=== PATIENT | male | born 1970 | race Caucasian/White ===

== ENCOUNTER 2019-02-23 05:50 | Emergency (ER) | payer BC, SELFPAY ==
[2019-02-23 05:51] VITALS: BP 177/112; PULSE 90; RESP 18; TEMP 36.4; O2SAT 97; BMI 30.4
[2019-02-23 06:36] LABS: Absolute Lymphocyte Count 1.33 X10^3/uL (0.83-4.51); Absolute Neutrophil Count 3.5 X10^3/uL (2.0-7.7); Basophil# 0.04 X10^3/uL; Basophil% 0.7 % (0-1); Eosinophil# 0.08 X10^3/uL; Eosinophils% 1.4 % (0-5); Hematocrit 46.3 % (40-54); Hemoglobin 15.1 g/dL (13.0-16.5); Lymphocyte # 1.33 X10^3/ul (4.0); Lymphocyte % 23.7 % (19-41); Mean Corp Hgb Conc 32.6 g/dL (32-36); Mean Corpuscular Hgb 29.5 pg (27.0-32.0); Mean Corpuscular Volume 90.6 fL (80-94); Mean Platelet Vol. 9.3 fl (6.2-12.0); Monocyte# 0.68 X10^3/uL; Monocyte% 12.1 % (0-10); NRBC Flagged by Analyzer 0 % (0-5); Neutrophil # 3.46 X10^3/uL (2.7-7.7); Neutrophil % 61.7 % (47-70); Platelet Count 314 K/mm3 (150-450); RBC Distribution Width CV 13.1 % (11.6-14.6); RBC Distribution Width SD 42.7 fl (35.1-43.9); Red Blood Count 5.11 M/mm3 (4.6-6.2); White Blood Count 5.6 K/mm3 (4.4-11.0)
[2019-02-23 06:45] LABS: ALB/GLOB Ratio 1.1 RATIO (0.9-2.4); AST(SGOT) 13 U/L (15-37); Alanine Aminotransfer ALT/SGPT 24 U/L (16-61); Albumin, Serum 3.8 g/dL (3.2-5.0); Alkaline Phosphatase 43 U/L (45-117); Anion Gap 6 (5-15); BUN 23 mg/dL (7-18); BUN/Creat Ratio 28.7 RATIO (10-20); Calcium,Total 8.6 mg/dL (8.5-10.1); Chloride 112 mmol/L (98-107); EST Glomerular Filtration Rate 109 mL/min (>60); Est Glom Filt Rate - Afr Amer 132 mL/min (>60); Globulin 3.5 g/dL (2.2-4.2); Glucose 91 mg/dL (74-106); Potassium 4.1 mmol/L (3.5-5.1); Protein, Total 7.3 g/dL (6.4-8.2); Sodium Level 143 mmol/L (136-145)
--- NOTE | 2019-02-23 06:54 | EKG12_ITS ---
Test Reason : HYPTERTENSON Blood Pressure : / mmHG Vent. Rate : 078 BPM Atrial Rate : 078 BPM P-R Int : 176 ms QRS Dur : 078 ms QT Int : 384 ms P-R-T Axes : 051 035 036 degrees QTc Int : 437 ms Normal sinus rhythm Normal ECG Confirmed by EUGENIA BENNETT, NATHANAEL ([id number]), material expeditor MADELINE BOX ([id number]) on 02/25/2019 11:06:21 AM Referred By: DEXTER Confirmed By:NATHANAEL BELLO MD
--- NOTE | 2019-02-23 06:54 | ED.VIS.GEN ---
History of Present Illness Chief Complaint: Hypertension Narrative: Patient is a 48-year-old male who presents with elevated blood pressure. He recently used a testosterone injection that you got from a friend, this was not prescribed to him. He used this 4 days ago. He has had hot flashes since that time. He saw his dentist the next day, 2 days ago. His blood pressure was noted to be elevated. He denies chest pain, shortness of breath, lightheadedness, headache. He states that if he had not gone to the dentist he would not have even known that his blood pressure was high. He does report a family history of coronary disease although he was evaluated with an echocardiogram and EKG earlier this year. Past Medical History Past Medical History: None Smoking Status: Never smoker Review of Systems All systems negative except as indicated General: Denies: Fever Cardiovascular: Denies: Chest pain Respiratory: Denies: Dyspnea Gastrointestinal: Denies: Nausea, Vomiting Skin: Denies: Rash Neurological: Denies: Headache Physical Exam Vital Signs/Narrative: Vital Signs Temp Pulse Resp BP Pulse Ox 02/23/19 05:51 97.6 F L 90 18 177/112 H 97 Inital Vital Signs reviewed: Yes General: Well nourished, Well developed Head: Normocephalic, Atraumatic Eyes: EOMI ENT: Moist mucous membranes Neck: Supple Cardiovascular: Regular rate, Regular rhythm Respiratory: No distress, CTA bilaterally Abdomen: Soft, Nontender Skin: Normal color Neurological: Alert, - - No focal or lateralizing neurological deficits Psychological: Normal affect Diagnostic/Tx/Re-eval Laboratory Results 02/23/19 02/23/19 06:20 06:20 WBC 5.6 RBC 5.11 Hgb 15.1 Hct 46.3 MCV 90.6 MCH 29.5 MCHC 32.6 RDW Std Deviation 42.7 RDW Coeff of Jhonatan 13.1 Plt Count 314 MPV 9.3 Immature Gran % (Auto) 0.400 Neut % (Auto) 61.7 Lymph % (Auto) 23.7 [place] % (Auto) 12.1 H Eos % (Auto) 1.4 Baso % (Auto) 0.7 Absolute Neuts (auto) 3.5 Absolute Lymphs (auto) 1.33 Nucleated RBC % 0 Sodium 143 Potassium 4.1 Chloride 112 H Carbon Dioxide 25.0 Anion Gap 6 BUN 23 H Creatinine 0.80 Estim Creat Clear Calc 122.60 Est GFR (MDRD) Af Amer 132 Est GFR (MDRD) Non-Af 109 BUN/Creatinine Ratio 28.7 H Glucose 91 Calcium 8.6 Total Bilirubin 0.60 AST 13 L ALT 24 Alkaline Phosphatase 43 L Total Protein 7.3 Albumin 3.8 Globulin 3.5 Albumin/Globulin Ratio 1.1 - Medical Decision Making CBC and CMP were ordered off of nursing protocol and are normal. EKG shows normal sinus rhythm at a rate of 78 with no acute ischemic changes. Patient presents with asymptomatic hypertension which is likely related to the testosterone. I do not believe any further emergent work-up or initiation of medications is indicated at this time. I did advise that he follow-up with his primary care physician for a blood pressure recheck. He does understand to return however if he develops symptoms. He was instructed on signs and symptoms to monitor for. He was discharged. ED Disposition - Plan for ED Patient: Disposition: Home or Assisted Living Diagnosis: Asymptomatic hypertension Instructions: HYPERTENSION, To Be Confirmed Referrals: Keely Mina MD [STAFF PHYSICIAN] -
[2019-02-23 07:15] VITALS: BP 160/111; PULSE 80; RESP 18; O2SAT 96
== END 2019-02-23 07:16 | disposition home or self-care (01) ==
LOC: ED 07:10
PROVIDERS: Emergency Provider Emergency Medicine; Family Provider Internal Medicine; PCP Internal Medicine
DX: I10 Essential (primary) hypertension (principal); Z82.49 Family history of ischemic heart disease and other diseases of the circulatory system
CPT/HCPCS: 80053; 85025; 93005; 99283; A4216

== ENCOUNTER → 2020-01-09 09:30 | Outpatient (CLI) | payer BC, SELFPAY | PROVIDERS: PCP Internal Medicine; Visit Provider Nurse Practitioner Family | DX: Z20.828 Contact with and (suspected) exposure to other viral communicable diseases (principal); B34.9 Viral infection, unspecified | CPT/HCPCS: 87635; C9803; U0003 ==

== ENCOUNTER 2024-11-16 19:36 | Emergency (ER) | payer BC, SELFPAY ==
[2024-11-16 19:37] VITALS: BP 143/99; PULSE 72; RESP 18; TEMP 36.8; O2SAT 99; BMI 26.4
--- NOTE | 2024-11-16 21:32 | EX.ED.UPPERE ---
HPI History of Present Illness Chief Complaint: Laceration Informant: patient Narrative Narrative: [id number] male presents injury right hand at home prior to arrival. He was opening up the window spring broke coming down crushing his finger. Injury to the 3rd and 4th digit. There is laceration volar aspect 3rd and 4th digit. Tetanus is unknown. No anticoagulants. Is able to move his fingers. No other injuries. Tetanus Immunization: Unknown [facility] Medical History HTN (hypertension) Home Medications ?Medication ?Instructions ?Recorded ?Last Taken ?Type losartan 25 mg tablet 25 mg PO DAILY 11/16/24 Unknown History oxycodone 5 mg tablet PO 11/16/24 Unknown History Held on 11/16/24. Instructions: Order Completed Allergy/AdvReac Type Severity Reaction Status Date / Time No Known Allergies Allergy Verified 11/16/24 19:36 Social History Smoking Status: Never smoker ROS ROS ED Constitutional Constitutional ED: Denies fever(s) Cardiovascular Cardiovascular: Denies chest pain Respiratory/Chest Respiratory/Chest: Denies cough Gastrointestinal Gastrointestinal: Denies diarrhea or vomiting Musculoskeletal Musculoskeletal: Reports other Details: Right hand injury Integumentary Reports wounds; Denies rash Neurologic Neurologic: Denies weakness EXAM Physical Exam Const Vital Signs: 11/16/24 19:37 Temperature 98.2 F Temperature Source Oral Pulse Rate 72 Respiratory Rate 18 Blood Pressure 143/99 H Blood Pressure Mean 113 Pulse Ox 99 Oxygen Delivery Method Room Air Positive well nourished and well developed Constitutional Narrative: GCS 15. General Appearance ED: well developed and NAD HEENT Reports moist mucous membranes normocephalic and atraumatic Eyes General Eye ED: Yes normal appearance of both eyes Neck full ROM Chest Wall Chest: Negative for tenderness Resp normal respiratory effort and normal air movement Effort and Inspection: symmetric chest movement; Negative for respiratory distress Cardio regular rate, regular rhythm and no murmurs Peripheral Pulses: pulses 2+ throughout GI normal to inspection, nondistended, normoactive bowel sounds and non-tender Palpation: Negative for guarding or rebound tenderness present Extremity Extremity Narrative: Right upper extremity: No wrist tenderness no metacarpal tenderness. Ring finger noted 1 cm laceration volar aspect of the DIP with no active bleeding. Able to flex the digit. There is a 20% subungual hematoma at the base of the nail. No deformities. Superficial dorsal skin avulsion. Middle finger: Flap laceration of 2 cm volar aspect middle phalanx 1 ulnar aspect. Full range of motion of PIP and DIP joint. Superficial skin avulsion dorsal aspect distal phalanx. No subungual hematoma. Dried blood with no active bleeding. General Extremety ED: Yes tenderness; Negative for edema General Extremity: Negative for edema Neuro oriented x3 and no sensory deficits noted Sensorium / Orientation: awake and alert Skin no rashes or lesions noted and no wounds MDM MDM MDM Narrative Medical decision making narrative: Interventions / MDM: Differential diagnosis: Crush injury right hand, lacerations, subungual hematoma Diagnosis considered but do not suspect: Fracture however x-ray negative. My EKG interpretation: N/A Imaging independently reviewed and interpreted by myself: Three-view x-ray right hand: No fractures noted. Also read by radiology. External documents reviewed: N/A Test considered but not ordered:N/A ED course: Crush injury right hand primary injury of 3rd and 4th digits. X-ray ordered. Tetanus updated. Will have nursing soak hand. Will plan for suture repairs of the 3rd and 4th digit. Tendons are intact. Procedure note: Verbal consent. Normal sterile conditions. Total of 2 cc 1% lidocaine used for local analgesia directly to the wounds 3 and 4. Wounds were copious flushed with normal saline syringe. No visualized gross foreign bodies. Initial ring finger repaired using a total of 2, 5-0 nylon interrupted sutures. Middle finger repaired with total of 3, 5-0 nylon simple interrupted sutures with good approximation of the wound. With his subungual hematoma ring finger, discussed trephination which she agreed, performed with high-powered trephinated with immediate bloody drainage. Wound was cleansed again with normal saline. Vaseline dressing placed around each digit by myself. 4 x 4's along with Kerlix dressing. Patient tolerated procedure well. Wound care discussed with the patient. AlumaFoam splints provided for 2 digits. Outpatient follow-up with Wound check and suture removal. Re-evaluation: stable Disposition discussed with patient/family/significant other:. Patient Case discussed with consulting clinician: N/A This note was generated with [employer] software. It may contain incorrect words, spelling, and punctuation that were not noted in checking the note before signing. Discharge Plan Triage Chief Complaint: Laceration ED Provider: Christopher Blackburn Dx/Rx/DC Orders Clinical Impression: Laceration of finger of right hand, Crush injury, Subungual hematoma of fingernail, Tetanus toxoid vaccination administered at current visit Instructions: ED Laceration, All Closures, ED Subungual Hematoma Prescriptions: No Action losartan 25 mg tablet 25 mg PO DAILY oxycodone 5 mg tablet PO Primary Care Provider: Keely Mina Referrals: Keely Mina MD [Primary Care Provider] - 10-14 Days suture removal Activity Restrictions/Additional Instructions: Right hand x-ray negative for any fractures. 3 sutures to the middle finger 2 sutures to your ring finger. You are subungual hematoma was trephinated in the ED. Wound care as discussed. Follow your doctor in 10 to 14 days for recheck evaluation possible suture removal. Print Language: Nauruan Disposition Disposition: Home, Self Care Discharge Date/Time: 11/16/24 23:20
--- OUTSIDE RECORDS SUMMARY | 2024-11-16 21:45 | XMS RPT_ITS | CCD ---
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 Role Phone Rene Mina Unavailable SERA MONTALVO Unavailable Unavailable SERA MONTALVO Unavailable Unavailable Rene Mina MD Primary Care Provider Free, Text Entry Unavailable Unavailable Diamond Kilpatrick Unavailable Unavailable Rene Mina MD Primary Care Provider Rene Mina MD Primary Care Provider Rene Mina MD Primary Care Provider Generic Provider MD, No Assigned Pcp Primary Car e Provider Unavailable Rene Mina MD Primary Care Provider MYESHA GARIBAY Referring Unavailable GENERIC PROVIDER, NO ASSIGNED PCP Primary Care Unavailable Older STAFFING MGR.DRAG DOWN, Suzanne Primary Care Provider VANI ZAMBRANO Admitting Unavailable VANI ZAMBRANO Attending Unavailable GANTA, RENE Primary Care Unavailable OLDER, SUZANNE Referring Unavailable GANTA, RENE Primary Care Unavailable VANI ZAMBRANO Attending Unavailable OLDER, SUZANNE Referring Unavailable GANTA, RENE Primary Care Unavailable OLDER, SUZANNE Referring Unavailable GANTA, RENE Primary Care Unavailable GANTA, RENE Primary Care Unavailable OLDER, SUZANNE Attending Unavailable GANTA, RENE Primary Care Unavailable OLDER, SUZANNE Referring Unavailable GANTA, RENE Primary Care Unavailable OLDER, SUZANNE Attending Unavailable OLDER, SUZANNE Referring Unavailable OLDER, SUZANNE Primary Care Unavailable OLDER, SUZANNE Attending Unavailable OLDER, SUZANNE Primary Care Unavailable KARIME HART Attending Unavailable OLDER, SUZANNE Primary Care Unavailable GANTA, RENE Primary Care Unavailable Allergies Allergy Classification Reported Allergen(s) Allergy Type Date of Onset Reaction(s) Facility (2 sources) Diatrizoate Drug Allergy 8 Rash [facility] Work Phone: (20 sources) Iodine; Translations: [IODINE] Drug Allergy 6 Rash [facility] (1 source) ALLERGIES NOT ON FILE; Translations: [ALLERGIES NOT ON FILE] Propensity to adverse reactions (disorder) [facility] 2 Repository Medications Current Medications Medication Drug Class(es) Dates Sig (Normalized) Sig (Original) amoxicillin 875 mg oral tablet (1 source) Penicillin-class Antibacterial Start: 06-03-2021 End: 06-12-2021 take 1 tablet by mouth twice daily amoxicillin 875 mg oral tablet ; 1 tab(s) orally 2 times a day x 10 days Quantity: 20 Refills: 0 Ordered: 03-Jun-2021 Diamond Kilpatrick Start: 03-Jun-2021 End: 12-Jun-2021 Status: Discontinued Generic Substitution Allowed Comments: Finish all this medication unless otherwise directed by prescriber. Comment on above: Finish all this medi cation unless otherwise directed by prescriber. amoxicillin 875 mg / clavulanate 125 mg oral tablet (1 source) Penicillin-class Antibacterial Start: 06-03-2021 End: 06-12-2021 take 1 tablet by mouth twice daily at mealtime amoxicillin-clavul anate 875 mg-125 mg oral tablet ; 1 tab(s) orally 2 times a day x 10 days. Take with food. Quantity: 20 Refills: 0 Ordered: 03-Jun-2021 Diamond Kilpatrick Start: 03-Jun-2021 End: 12-Jun-2021 Generic Substitution Allowed Comments: Finish all this medication unless otherwise directed by prescriber.Take with food or milk. Comment on above: Finish all this medi cation unless otherwise directed by prescriber.Take with food or milk. cephalexin 500 mg oral capsule (1 source) Cephalosporin Antibacterial Start: 11-03-2022 End: 11-08-2022 take 1 capsule by mouth three times daily cephALEXin (KEFLEX) 500 mg capsule Indications: Infected abrasion of left ankle, initial encounter Take 1 capsule by mouth three times daily for 5 days. 15 capsule 0 11/03/2022 11/08/2022 Active Comment on above: Take 1 capsule by [facility] three times daily for 5 days. Cetirizine (20 sources) Histamine-1 Receptor Antagonist CETIRIZINE HCL (ZYRTEC ORAL) Take by mouth. Active CETIRIZINE HCL ( ZYRTEC ORAL) Take by mouth. 0 Active take 1 tablet by mouth once ame y ZyrTEC 10 mg oral tablet, chewable ; 1 tab(s) orally once a day Quantity: 0 Refills: 0 Ordered: 14-Oct-2019 Haylee Johnson Generic Substitution Allowed Comment on above: Take by mouth. cyclobenzaprine hydrochloride 10 mg oral tablet (3 sources) Muscle Relaxant Start: End: take 1 tablet by mouth at bedtime cyclobenzaprine 10 MG Tab tablet Indications: Acute bilateral low back pain without sciatica Take 1 tablet by mouth at bedtime. 5 tablet 0 03/06/2018 Active diclofenac sodium 75 mg delayed release oral tablet (3 sources) Nonsteroidal Anti-inflammatory Drug Start: End: take 1 tablet by mouth twice daily diclofenac EC [address] tablet Indications: Acute bilateral low back pain without sciatica Take 1 tablet by mouth 2 times daily. 10 tablet 0 03/06/2018 Active enteric contrast (will be provided with radiology test) (1 source) Start: End: enteric contrast (will be provided with radiology test) Indications: Right groin mass , Localized swelling, mass and lump, trunk , Hydrocele, unspecified hydrocele type For CT PELVIS WO IVCON order Administer, As Directed One Time Only, via Oral, Rectal, both Oral and Rectal, Enteric Tube, Stoma or Indwelling Catheter, Enteric Contrast as designated per enteric contrast guidelines 1 Each 12/23/2023 12/24/2023 Active losartan potassium 25 mg oral tablet (20 sources) Angiotensin 2 Receptor Bryn Start: End: take 1 tablet by mouth once daily losartan (COZAAR) 25 mg tablet Take 1 tablet by mouth once daily. 90 tablet 3 09/21/2024 Active Start: 08-20-2022 End: 10-26-2023 take 1 tablet by mouth once daily losartan (COZAAR) 50 mg tablet Take 1 tablet by mouth once daily. 90 tablet 3 10/31/2022 10/26/2023 Discontinued Start: 12-30-2021 take 1 tablet by fatoumata th once daily losartan (COZAAR) 50 mg tablet Take 1 tablet by mouth once daily. 90 tablet 3 12/30/2021 Active Start: 08-20-2021 End: 12-27-2021 take 1 tablet by mouth once daily losartan (COZAAR) 50 mg tablet Take 1 tablet by mouth once daily. 90 tablet 3 09/27/2021 12/27/2021 Discontinued Start: 06-21-2021 take 1 tablet by fatoumata th once daily losartan (COZAAR) 50 mg tablet Take 1 tablet by mouth once daily. 90 tablet 0 06/21/2021 Active Start: 03-20-2021 End: 06-20-2021 take 1 tablet by mouth once daily losartan (COZAAR) 50 mg tablet Take 1 tablet by mouth once daily. 90 tablet 0 03/20/2021 06/20/2021 Discontinued Start: 12-20-2020 losartan 50 MG tablet losartan 50 mg o ral tablet Quantity: 0 Refills: 0 Ordered: 03-Jun-2021 Willem Kennedy Generic Substitution Allowed Comment on above: Take 1 tablet by fatoumata th once daily. perflutren lipid microspheres 1.3 mL in NaCl (PF) 0.9% 10 mL injection (DEFINITY) (12 sources) Start: 06-30-2022 End: 09-29-2023 perflutren lipid microspheres 1.3 mL in NaCl (PF) 0.9% 10 mL injection (DEFINITY) 125 ml sodium chloride 9 mg/ml prefilled syringe (12 sources) Start: 06-30-2022 End: 09-29-2023 sodium chloride 0.9 % (flush) 10 mL (BD POSIFLUSH) Completed/Discontinued Medications Medication Drug Class(es) Dates Sig (Normalized) Sig (Original) azithromycin 250 mg oral tablet (1 source) Macrolide Antimicrobial Start: 10-14-2019 End: 10-18-2019 Azithromycin 5 Day Dose Pack 250 mg oral tablet ; take as directed on package Quantity: 6 Refills: 0 Ordered: 14-Oct-2019 Radha Fleming Start: 14-Oct-2019 End: 18-Oct-2019 Status: Other Generic Substitution Allowed Comments: Do not take dairy products, antacids, or iron preparations within one hour of this medication.Finish all this medication unless otherwise directed by prescriber. Comment on above: Do not take dairy pr oducts, antacids, or iron preparations within one hour of this medication.Finish all this medication unless otherwise directed by prescriber. ergocalciferol 1.25 mg oral capsule (10 sources) Provitamin D2 Compound Start: 04-27-2019 take 1 capsule by mouth two times weekly ergocalciferol 50,000 unit capsule (VITAMIN D2, DRISDOL) Take 1 capsule by mouth two times a week. 24 capsule 3 04/27/2019 Active Comment on above: Take 1 capsule by mo uth two times a week. fluticasone propionate 0.05 mg/actuat metered dose nasal spray (20 sources) Corticosteroid Start: 08-20-2022 End: 09-21-2024 take 2 spray(s) by mouth once daily fluticasone (FLONASE) 50 mcg/actuation nasal spray Indications: Sinus pressure , Sinus headache Use 2 Sprays in each nostril once daily. Rinse mouth after use. 1 Each 5 08/20/2022 09/21/2024 Discontinued Start: 12-30-2021 take 2 spray(s) by m outh once daily fluticasone (FLONASE) 50 mcg/actuation nasal spray Indications: Sinus pressure , Sinus headache Use 2 Sprays in each nostril once daily. Rinse mouth after use. 1 Each 5 12/30/2021 Active Start: 08-20-2021 End: 12-27-2021 take 2 spray(s) by mouth once daily fluticasone (FLONASE) 50 mcg/actuation nasal spray Indications: Sinus pressure , Sinus headache Use 2 Sprays in each nostril once daily. Rinse mouth after use. 1 Each 5 08/20/2021 12/27/2021 Discontinued Start: 03-27-2020 take 2 spray(s) by m outh once daily fluticasone (FLONASE) 50 mcg/actuation nasal spray Indications: Sinus pressure , Sinus headache Use 2 Sprays in each nostril once daily. Rinse mouth after use. 1 Bottle 0 03/27/2020 Active Comment on above: Use 2 Sprays in each nostril once daily. Rinse mouth after use. meloxicam 15 mg oral tablet (12 sources) Nonsteroidal Anti-inflammatory Drug Start: 05-07-19 End: 07-01-19 23 take 1 tablet by mouth once daily at mealtime meloxicam (MOBIC) 15 mg tablet Take 1 tablet by mouth once daily. With food. 30 tablet 1 10/01/2021 06/30/2022 Discontinued (Discontinued by Patient) Comment on above: Take 1 tablet by fatoumata th once daily. With food. montelukast 10 mg oral tablet (20 sources) Leukotriene Receptor Antagonist Start: 08-21-19 End: 10-26-19 take 1 tablet by mouth once daily at bedtime montelukast (SINGULAIR) 10 mg tablet Take 1 tablet by mouth daily at bedtime. 30 tablet 5 08/20/2022 10/26/2023 Discontinued Start: 08-20-2021 End: 06-30-2022 take 1 tablet by mouth once daily at bedtime montelukast (SINGULAIR) 10 mg tablet Take 1 tablet by mouth daily at bedtime. 30 tablet 5 08/20/2021 06/30/2022 Discontinued (Discontinued by Patient) Comment on above: Take 1 tablet by fatoumata th daily at bedtime. tirzepatide, weight loss (ZEPBOUND) 2.5 mg/0.5 mL pen injector (20 sources) Start: 07-20-2023 End: 09-21-2024 tirzepatide, weight loss (ZEPBOUND) 2.5 mg/0.5 mL pen injector Indications: Class 1 obesity with serious comorbidity and body mass index (BMI) of 30.0 to 30.9 in adult, unspecified obesity type , Weight loss counseling, encounter for , Essential hypertension , Mixed hyperlipidemia Inject 2.5 mg subcutaneously one time a week. 6 mL 1 07/20/2023 09/21/2024 Discontinued Start: 07-20-2023 tirzepatide, w eight loss (ZEPBOUND) 2.5 mg/0.5 mL pen injector Indications: Class 1 obesity with serious comorbidity and body mass index (BMI) of 30.0 to 30.9 in adult, unspecified obesity type , Weight loss counseling, encounter for , Essential hypertension , Mixed hyperlipidemia Inject 2.5 mg subcutaneously one time a week. 6 mL 1 07/20/2023 Active Start: 06-17-2023 End: 07-20-2023 tirzepatide, weight loss (ZE PBOUND) 2.5 mg/0.5 mL pen injector Indications: Class 1 obesity with serious comorbidity and body mass index (BMI) of 30.0 to 30.9 in adult, unspecified obesity type , Weight loss counseling, encounter for Inject 2.5 mg subcutaneously one time a week. 2 mL 1 06/17/2023 07/20/2023 Discontinued Start: 06-17-2023 tirzepatide, w eight loss (ZEPBOUND) 2.5 mg/0.5 mL pen injector Indications: Class 1 obesity with serious comorbidity and body mass index (BMI) of 30.0 to 30.9 in adult, unspecified obesity type , Weight loss counseling, encounter for Inject 2.5 mg subcutaneously one time a week. 2 mL 1 06/17/2023 Active Start: 06-17-2023 End: 06-17-2023 tirzepatide, weight loss (ZE PBOUND) 2.5 mg/0.5 mL pen injector Indications: Class 1 obesity with serious comorbidity and body mass index (BMI) of 30.0 to 30.9 in adult, unspecified obesity type , Weight loss counseling, encounter for Inject 2.5 mg subcutaneously one time a week. 2 mL 1 06/17/2023 06/17/2023 Discontinued Start: 04-20-2023 End: 06-16-2023 tirzepatide, weight loss (ZE PBOUND) 2.5 mg/0.5 mL pen injector Indications: Class 1 obesity with serious comorbidity and body mass index (BMI) of 30.0 to 30.9 in adult, unspecified obesity type , Weight loss counseling, encounter for Inject 2.5 mg subcutaneously one time a week. 2 mL 1 04/20/2023 06/16/2023 Discontinued Start: 04-20-2023 tirzepatide, w eight loss (ZEPBOUND) 2.5 mg/0.5 mL pen injector Indications: Class 1 obesity with serious comorbidity and body mass index (BMI) of 30.0 to 30.9 in adult, unspecified obesity type , Weight loss counseling, encounter for Inject 2.5 mg subcutaneously one time a week. 2 mL 1 04/20/2023 Active Comment on above: Inject 2.5 mg subcut aneously one time a week. Problems Active Problems Problem Classification Problem Date Documented Da te Episodic/Chronic Abdominal hernia (3 sources) Right inguinal hernia ; Translations: [Unilateral inguinal hernia, without obstruction or gangrene, not specified as recurrent] 12-30-2023 Episodic Abdominal pain (1 source) Flank pain Episodic Administrative/social admission (20 sources) Patient encounter status; Translations: [Dietary counseling and surveillance] Onset: 1 Resolved: 1 06-17-2023 Episodic Cardiac dysrhythmias (20 sources) Supraventricular tachycardia; Translations: [Supraventricular tachycardia] Onset: 3 08-20-2022 Chronic Cardiac dysrhythmias (1 source) Palpitations; Translations: [Palpitations] Episodic Disorders of lipid metabolism (20 sources) Mixed hyperlipidemia; Translations: [Mixed hyperlipidemia] Onset: 3 Chronic Essential hypertension (20 sources) Essential hypertension; Translations: [Essential (primary) hypertension] Onset: 3 Chronic Genitourinary symptoms and ill-defined conditions (1 source) Increased frequency of urination; Translations: [Frequency of micturition] Episodic Headache; including migraine (2 sources) Sinus headache; Translations: [Sinus headache] Episodic Immunizations and screening for infectious disease (1 source) Needs influenza immunization; Translations: [Encounter for immunization] Episodic Malaise and fatigue (1 source) Fatigue; Translations: [Other fatigue] Episodic Nutritional deficiencies (1 source) Vitamin D deficiency; Translations: [Vitamin D deficiency, unspecified] Chronic Nutritional deficiencies (1 source) Cobalamin deficiency; Translations: [Deficiency of other specified B group vitamins] Episodic Other circulatory disease (1 source) Elevated blood-pressure reading without diagnosis of hypertension Episodic Other connective tissue disease (1 source) Lateral epicondylitis of right humerus; Translations: [Lateral epicondylitis, right elbow] Episodic Other connective tissue disease (1 source) Postexertional fatigue; Translations: [Other specified disorders of muscle] Episodic Other diseases of veins and lymphatics (2 sources) Varicocele; Translations: [Scrotal varices] 12-15-2023 Episodic Other diseases of veins and lymphatics (1 source) Scrotal varices; 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] Onset: 5 Episodic Other gastrointestinal disorders (5 sources) Groin mass; Translations: [Other intra-abdominal and pelvic swelling, mass and lump] 12-07-2023 Episodic Other male genital disorders (2 sources) Pain of right testicle; Translations: [Right testicular pain] 12-07-2023 Episodic Other male genital disorders (4 sources) Disorder of male genital organ; Translations: [Hydrocele, unspecified] 12-15-2023 Episodic Other nervous system disorders (1 source) Other acute postprocedural pain; Translations: [Acute post-operative pain] Onset: Episodic Other non-traumatic joint disorders (3 sources) Pain in elbow; Translations: [Pain in right elbow] Episodic Other nutritional; endocrine; and metabolic disorders (4 sources) Obesity; Translations: [Obesity, unspecified] 06-17-2023 Chronic Other skin disorders (2 sources) Finding of trunk structure; Translations: [Localized swelling, mass and lump, trunk] 12-23-2023 Episodic Other upper respiratory disease (2 sources) Nasal sinus problem; Translations: [Other specified disorders of nose and nasal sinuses] Episodic Other upper respiratory infections (3 sources) Viral upper respiratory tract infection; Translations: [Acute upper respiratory infection, unspecified] Episodic Residual codes; unclassified (1 source) Pain; Translations: [Pain, unspecified] 01-25-2023 Episodic Screening and history of mental health and substance abuse codes (2 sources) Encounter for screening for depression; Translations: [Encounter for screening examination for other mental health and behavioral disorders] Onset: Episodic Spondylosis; intervertebral disc disorders; other back problems (1 source) Acute low back pain Episodic Superficial injury; contusion (1 source) Abrasion, left ankle, initial encounter; Translations: [Abrasion or friction burn of hip, thigh, leg, and ankle, infected] 11-03-2022 Episodic Unclassified (2 sources) COUGH SINUS CHEST CONGESTION 06-03-2021 Comment on above: COUGH SINUS CHEST CO NGESTION Past or Other Problems Problem Classification Problem Date Documented Da te Episodic/Chronic Allergic reactions (20 sources) Allergic condition; Translations: [Allergy, unspecified, initial encounter] Onset: 08-20-2022 08-20-2022 Episodic Other gastrointestinal disorders (1 source) Other intra-abdominal and pelvic swelling, mass and lump; Translations: [Right groin mass] Onset: 12-30-2023 Episodic Other male genital disorders (1 source) Hydrocele, unspecified; Translations: [Hydrocele, unspecified hydrocele type] Onset: 12-29-2023 Episodic Other male genital disorders (1 source) Right testicular pain; Translations: [Right testicular pain] Onset: 12-10-2023 Episodic Other skin disorders (1 source) Localized swelling, mass and lump, trunk; Translations: [Localized swelling, mass and lump, trunk] Onset: 12-29-2023 Episodic Residual codes; unclassified (2 sources) Pain, unspecified; Translations: [Pain, unspecified] Onset: 01-25-2023 Episodic Results Test Name Value Interpretation Reference Range Facility CBC panel Auto (Bld)on 11-12 Erythrocyte distribution width (RBC) [Ratio] 13.4 % Normal 11.5-15.0 [facility] Comment on above: Order Comment: Speci men Type: BLOOD SPECIMENOrdering Facility: [facility] Address: [address] [place] [address] Performed By: #### 5 8410-2 ####[facility] [id number] [place] [address] [place] Hematocrit (Bld) [Volume fraction] 45.1 % Normal 39.0-51.0 [facility] Comment on above: Order Comment: Speci men Type: BLOOD SPECIMENOrdering Facility: [facility] Address: [address] [place] [address] Performed By: #### 5 8410-2 ####[facility] [id number] [place] [address] [place] Hemoglobin (Bld) [Mass/Vol] 15.0 g/dL Normal 13.0-17.0 [facility] Comment on above: Order Comment: Speci men Type: BLOOD SPECIMENOrdering Facility: [facility] Address: [address] [place] [address] Performed By: #### 5 8410-2 ####[facility] [id number] [place] [address] [place] MCH (RBC) [Entitic mass] 30.2 pg Normal 26.0-34.0 [facility] Comment on above: Order Comment: Speci men Type: BLOOD SPECIMENOrdering Facility: [facility] Address: [address] [place] [address] Performed By: #### 5 8410-2 ####[facility] LABIA [id number] [place] [address] [place] MCHC (RBC) [Mass/Vol] 33.3 g/dL Normal 30.5-36.0 [facility] Comment on above: Order Comment: Speci men Type: BLOOD SPECIMENOrdering Facility: [facility] Address: [address] [place] [address] Performed By: #### 5 8410-2 ####[facility] [id number] [place] [address] [place] MCV (RBC) [Entitic vol] 90.9 fL Normal 80.0-100.0 [facility] Comment on above: Order Comment: Speci men Type: BLOOD SPECIMENOrdering Facility: [facility] Address: [address] [place] [address] Performed By: #### 5 8410-2 ####[facility] [id number] [place] [address] [place] Nucleated RBC (Bld) [#/Vol] 10*3/uL Normal <0.01 [facility] Comment on above: Order Comment: Speci men Type: BLOOD SPECIMENOrdering Facility: [facility] Address: [address] [place] [address] Performed By: #### 5 8410-2 ####[facility] [id number] [place] [address] [place] Platelet mean volume (Bld) [Entitic vol] 9.9 fL Normal 9.0-12.7 [facility] Comment on above: Order Comment: Speci men Type: BLOOD SPECIMENOrdering Facility: [facility] Address: [address] [place] [address] [place] [address] Performed By: #### 5 8410-2 ####[facility] [id number] [address] [address] [place] Platelets (Bld) [#/Vol] 309 10*3/uL Normal 150-400 [facility] Comment on above: Order Comment: Speci men Type: BLOOD SPECIMENOrdering Facility: [facility] Address: [address] [place] [address] Performed By: #### 5 8410-2 ####[facility] LABIA [id number] [place] [id number] [place] [facility] RBC (Bld) [#/Vol] 4.96 10*6/uL Normal 4.20-6.00 [facility] Comment on above: Order Comment: Speci men Type: BLOOD SPECIMENOrdering Facility: [facility] Address: [address] [place] [address] Performed By: #### 5 8410-2 ####[facility] LABIA [id number] [place] [id number] [place] WBC (Bld) [#/Vol] 5.25 10*3/uL Normal 3.70-11.00 [facility] Comment on above: Order Comment: Speci men Type: BLOOD SPECIMENOrdering Facility: [facility] Address: [address] [place] [address] Performed By: #### 5 8410-2 ####[facility] LABIA [id number] [address] [address] [place] Comprehensive metabolic 2000 panelon 11-12-2024 Albumin [Mass/Vol] 4.4 g/dL Normal 3.9-4.[address] [facility] Comment on above: Order Comment: Speci men Type: BLOOD SPECIMENOrdering Facility: [facility] Address: [address] [place] [address] Performed By: #### 2 4331-1, 82333-8 ####[facility] [id number] [facility] [id number] [address] [place] ALP [Catalytic activity/Vol] 45 U/L Normal 38-113 [facility] Comment on above: Order Comment: Speci men Type: BLOOD SPECIMENOrdering Facility: [facility] Address: [address] [place] [address] Performed By: #### 2 4331-1, ####[facility] [id number] [facility] [place] [id number], [place] [address] [place] ALT [Catalytic activity/Vol] 23 U/L Normal 10-54 [facility] Comment on above: Order Comment: Speci men Type: BLOOD SPECIMENOrdering Facility: [facility] Address: [address] [place] [address] Performed By: #### 2 4331-1, 79571-6 ####[facility]CL[facility] [id number] [address] [place] [address] [place] Anion gap [Moles/Vol] 12 mmol/L Normal 8-15 [facility] Comment on above: Order Comment: Speci men Type: BLOOD SPECIMENOrdering Facility: [facility] Address: [address] [place] [address] Performed By: #### 2 4331-1, ####[facility] [id number] [address] [place] [address] [place] AST [Catalytic activity/Vol] 22 U/L Normal 14-40 [facility] Comment on above: Order Comment: Speci men Type: BLOOD SPECIMENOrdering Facility: [facility] Address: [address] [place], [place] [id number] Performed By: #### 2 4331-1, 82207-1 ####[facility] LABCLIA [id number] [facility] [address] [place] [address] [place] Bilirubin [Mass/Vol] 0.9 mg/dL Normal 0.2-1.3 [facility] Comment on above: Order Comment: Speci men Type: BLOOD SPECIMENOrdering Facility: [facility] Address: [address] [id number] Performed By: #### 2 4331-1, ####[facility] LABCLIA [id number] [facility] [id number] [address] [place] Calcium [Mass/Vol] 9.4 mg/dL Normal 8.5-10.[address] [facility] Comment on above: Order Comment: Speci men Type: BLOOD SPECIMENOrdering Facility: [facility] Address: [address] [place] [address] Performed By: #### 2 4331-1, ####[facility] LABCLIA [id number] [facility] [address] [address] [place] Chloride [Moles/Vol] 106 mmol/L Normal 98-107 [facility] Comment on above: Order Comment: Speci men Type: BLOOD SPECIMENOrdering Facility: [facility] Address: [address] [place] [address] Performed By: #### 2 4331-, ####[facility] LABCLIA [id number] [facility] [address], [facility] [place] CO2 [Moles/Vol] 22 mmol/L Normal 22-30 [facility] Comment on above: Order Comment: Speci men Type: BLOOD SPECIMENOrdering Facility: [facility] Address: [address] [place], [place] [address] Performed By: #### 2 4331-1, ####[facility] LABCLIA [id number] [facility] [address] [address] [place] Creatinine [Mass/Vol] 0.88 mg/dL Normal 0.73-1.22 [facility] Comment on above: Order Comment: Speci men Type: BLOOD SPECIMENOrdering Facility: [facility] Address: [address] [place] [address] Performed By: #### 2 4331-1, 04212-9 ####[facility] LABIA [id number] [place] [address] [place] eGFRcr SerPlBld CKD-EPI 2020 102 mL/min/1.73m??? Normal >=60 [facility] Comment on above: Order Comment: Davon dominguez Type: BLOOD SPECIMENOrdering Facility: [facility] Address: [address] [place] [address] Result Comment: Chinyere mated Glomerular Filtration Rate (eGFR) is calculated using the 2020 CKD-EPI creatinine equation. This equation utilizes serum creatinine, sex, and age as parameters. The creatinine assay has traceable calibration to isotope dilution-mass spectrometry. Refer to KDIGO guidelines for clinical interpretation. In patients with unstable renal function, e.g. those with acute kidney injury, the eGFR may not accurately reflect actual GFR. Performed By: #### 2 4331-1, 88028-6 ####[facility] LABIA [id number] [place] [address] [place] Glucose [Mass/Vol] 80 mg/dL Normal 74-[address] [facility] Comment on above: Order Comment: Davon dominguez Type: BLOOD SPECIMENOrdering Facility: [facility] Address: [address] [place] [address] Result Comment: The [place] Diabetes Association (ADA) provides guidance for cutoff values for fasting glucose and random glucose. The ADA defines fasting as no caloric intake for at least 8 hours. Fasting plasma glucose results between 100 to 125 mg/dL indicate increased risk for diabetes (prediabetes). Fasting plasma glucose results greater than or equal to 126 mg/dL meet the criteria for diagnosis of diabetes. In the absence of unequivocal hyperglycemia, results should be confirmed by repeat testing. In a patient with classic symptoms of hyperglycemia or hyperglycemic crisis, random plasma glucose results greater than or equal to 200 mg/dL meet the criteria for diagnosis of diabetes. Reference: Standards of Medical Care in Diabetes 2016, [place] Diabetes Association. Diabetes Care. 2016.39(Suppl 1). Performed By: #### 2 4331-, ####[facility] LABCLIA [id number] [facility] [address] [place] [address] [place] Potassium [Moles/Vol] 4.3 mmol/L Normal 3.7-5.1 [facility] Comment on above: Order Comment: Speci men Type: BLOOD SPECIMENOrdering Facility: [facility] Address: [address] [place] [address] Performed By: #### 2 4331-, ####[facility] LABCLIA [id number] [address] [place] [address] [place] Protein [Mass/Vol] 7.3 g/dL Normal 6.3-8.[address] [facility] Comment on above: Order Comment: Speci men Type: BLOOD SPECIMENOrdering Facility: [facility] Address: [address] [place] [address] Performed By: #### 2 43303-30, ####[facility] LABCLIA [id number] [address] [place] [address] [place] Sodium [Moles/Vol] 140 mmol/L Normal 136-[address] [facility] Comment on above: Order Comment: Speci men Type: BLOOD SPECIMENOrdering Facility: [facility] Address: [address] [place] [address] Performed By: #### 2 4331-, ####[facility] LABCLIA [id number] [address] [place] [address] [place] Urea nitrogen [Mass/Vol] 20 mg/dL Normal 9-24 [facility] Comment on above: Order Comment: Speci men Type: BLOOD SPECIMENOrdering Facility: [facility] Address: [address] [place], [place] [address] Performed By: #### 2 4331-1, ####[facility] LABCLIA [id number] [address] [place] [address] [place] Lipid 1996 panelon 08-16-202 5 Cholesterol [Mass/Vol] 200 mg/dL High <200 [facility] Comment on above: Order Comment: Speci men Type: BLOOD SPECIMENOrdering Facility: [facility] Address: [address] [place] [address] Result Comment: <200 mg/dL, Desirable 200-239 mg/dL, Borderline high >239 mg/dL, High Performed By: #### 2 4331-1, ####[facility] LABCLIA [id number] [facility] [address] [place] [address] [place] Cholesterol in HDL [Mass/Vol] 49 mg/dL Normal >39 [facility] Comment on above: Order Comment: Speci men Type: BLOOD SPECIMENOrdering Facility: [facility] Address: [address] [place] [address] Result Comment: 40-5 9 mg/dL, Acceptable >59 mg/dL, High: Negative risk factor for coronary heart disease <40 mg/dL, Low: Positive risk factor for coronary heart disease Performed By: #### 2 4331-1, ####[facility] LABCLIA [id number] [address] [place] [address] [place] Cholesterol in LDL [Mass/Vol] 135 mg/dL High <100 [facility] Comment on above: Order Comment: Speci men Type: BLOOD SPECIMENOrdering Facility: [facility] Address: [address] [place] [address] Result Comment: <100 mg/dL, Optimal 100-129 mg/dL, Near optimal/above optimal 130-159 mg/dL, Borderline high 160-189 mg/dL, High >189 mg/dL, Very high Secondary prevention optimal LDL Cholesterol levels are recommended to be <70 mg/dL LDL cholesterol is calculated using the Noriega-NIH equation. Performed By: #### 2 4331-1, 74680-2 ####[facility] LABCLIA [id number] [facility] [place] [id number] [address] [place] Cholesterol in LDL/Cholesterol in HDL [Mass ratio] 2.76 {ratio} High <2.54 [facility] Comment on above: Order Comment: Speci men Type: BLOOD SPECIMENOrdering Facility: [facility] Address: [address] [place] [address] Result Comment: Wily renteria: 1. National Cholesterol Education Program ATP III Guideline At-A-Glance Quick Desk Reference: National Heart, Lung, and Blood [place]. National Institutes of Health. 2001: NIH Publication No. 01-3305. 2. An International Atherosclerosis Society position paper: global recommendations for the management of dyslipidemia: executive summary, Atherosclerosis. 2014: 232(2):410-413. Performed By: #### 2 4331-1, 72388-2 ####[facility] LABCLIA [id number] [place] [address] [place] Cholesterol in VLDL [Mass/Vol] 15 mg/dL Normal <30 [facility] Comment on above: Order Comment: Speci men Type: BLOOD SPECIMENOrdering Facility: [facility] Address: [address] [place] [address] Performed By: #### 2 4331-1, ####[facility] LABCLIA [id number] [place] [address] [place] Cholesterol non HDL [Mass/Vol] 151 mg/dL High <130 [facility] Comment on above: Order Comment: Speci alberto Type: BLOOD SPECIMENOrdering Facility: [facility] Address: [address] [place] [address] Result Comment: <130 mg/dL, Optimal 130-159 mg/dL, Near optimal/above optimal 160-189 mg/dL, Borderline high 190-219 mg/dL, High >219 mg/dL, Very high Secondary prevention optimal non HDL Cholesterol levels are recommended to be <100 mg/dL Performed By: #### 2 4331-1, 37479-6 ####[facility] LABCLIA [id number] [address] [address] [place] Cholesterol.total/C holesterol in HDL [Mass ratio] 4.08 {ratio} Normal <5.10 [facility] Comment on above: Order Comment: Speci men Type: BLOOD SPECIMENOrdering Facility: [facility] Address: [address] [place] [address] Performed By: #### 2 4331-1, ####[facility] LABCLIA [id number] [address] [address] [place] FASTING TIME 12 hrs Normal [facility] Comment on above: Order Comment: Speci men Type: BLOOD SPECIMENOrdering Facility: [facility] Address: [address] [place] [address] Performed By: #### 2 4331-1, ####[facility] LABCLIA [id number] [address] [address] [place] Triglyceride [Mass/Vol] 86 mg/dL Normal <150 [facility] Comment on above: Order Comment: Speci men Type: BLOOD SPECIMENOrdering Facility: [facility] Address: [address] [place] [address] Result Comment: <150 mg/dL, Normal 150-199 mg/dL, Borderline high 200-499 mg/dL, High >499 mg/dL, Very high Performed By: #### 2 4331-1, ####[facility] LABCLIA [id number] [address] [address] [place] CNOVon 09-21-2024 CNOV Office Visit (INTMWS) TRE MENDOZA ([id number]) 1970 M [place] Date Time Provider Department 09/21/24 2:20 PM SUZANNE VELEZ [facility]lineWS During your visit today, we recorded the following information about you: Pulse Respiration Blood pressure Weight 88/minute 16/minute 118/82 88.5 kg Older, ANTONIETA PalaciosN.DRAG DOWN 09/21/2024 4:17 PM Signed CC: Patient presents with: Physical: Annual Physical HPI Tre Mendoza is a 53 year old male who presents today for annual exam. Recording using [employer] software for draft documentation of the visit was discussed with the patient/authorized outside medical sales representative; all questions welcomed and answered. Patient/authorized outside medical sales representative agreed to proceed Hypertension and HLD: - Managed with losartan once daily. - Home BP readings: ~114/73 mmHg. - Occasional dizziness once every few months and mild, improved with eating. - No headaches, dyspnea, angina, edema, palpitations or syncope. Diet and Exercise: - Diet is generally healthy; occasional snacks with son. - Physical activity includes work-related tasks and outdoor activities with 7-year-old son. - Able to climb six flights of stairs without dyspnea. - Weight has remained stable. - Had US last fall that showed a small bilateral hydrocele and bilateral varicoceles; was found to have inguinal hernia so had surgery for this and never saw urology as ordered. no significant enlargement or pain in testicles. REVIEW OF SYSTEMS General: no fevers, no chills, no night sweats, no recurrent infections, no change in appetite, no change in energy, and no significant changes in weight Respiratory: no cough, no wheezing, no shortness of breath, no hemoptysis Cardiovascular: no chest pain, no chest pressure, no palpitations, and no swelling GI: No nausea, vomiting, or diarrhea : No history of dysuria, frequency or incontinence Psych: PHQ2 is 0 GAD2 is 0 Endocrine: no fatigue, no weight gain, no weight loss, no polyuria, no polyphagia, and no polydipsia Neurologic: No headache, weakness, numbness, dizziness, memory loss, syncope. PAST MEDICAL HISTORY Diagnosis Date Actinic keratosis of right cheek 2013 Bilateral varicoceles 12/10/2023 Hydrocele 12/10/2023 Small bilateral Hypertension Inguinal hernia 12/30/2023 bilateral Mixed hyperlipidemia Right groin mass SVT (supraventricular tachycardia) (HCC) PAST SURGICAL HISTORY Procedure Laterality Date COLONOSCOPY FLX DX W/COLLJ SPEC WHEN PFRMD 02/11/2021 EYE SURGERY HX Right 03/30/1992 LAPAROSCOPY SURG RPR INITIAL INGUINAL HERNIA 01/11/2024 bilateral, with mesh SKIN BIOPSY HX ALLERGIES Iv Contrast [Iodine] MEDICATIONS losartan (COZAAR) 25 mg tablet Take 1 tablet by mouth once daily. CETIRIZINE HCL (ZYRTEC ORAL) Take by mouth. FAMILY HISTORY Problem Relation Age of Onset Heart Failure Father 54 Diabetes Father Breast Cancer Mother 69 Social History Tobacco Use Smoking status: Never Smokeless tobacco: Never Vaping Use Vaping status: Never Used Substance Use Topics Alcohol use: Not Currently Drug use: No PHYSICAL EXAM BP 118/82 Pulse 88 Resp 16 Wt 88.5 kg (195 lb) SpO2 97% BMI 27.20 kg/m? General Appearance: well appearing, in no acute distress, alert Pysch: mood and affect broad and appropriate Eyes: conjunctiva pink and moist, no icterus, sclera white, non-injected Neck: Thyroid normal size and symmetric without palpable nodules, Neck supple, No adenopathy Lymph nodes: No cervical lymphadenopathy and No supraclavicular lymphadenopathy Lungs: Lungs clear to auscultation. No wheezing, rhonchi, rales. Heart: RRR without murmur, gallop, or rubs. No ectopy Abdomen: Abdomen soft, non-tender. Bowel sounds normal. No masses, organomegaly Neurological: Gait normal. speech normal, mental status intact Health maintenance reviewed with patient: Depression Screening Never done Anxiety Screening Never done Hepatitis B Vaccine(1 of 3 - 19+ 3-dose series) due on 09/21/2025 Shingrix Vaccine(1 of 2) due on 09/21/2025 Covid-19 Vaccine( - season) due on 09/21/2025 Pneumococcal Vaccine: 50+(1 of 1 - PCV) due on 09/21/2025 Influenza Vaccine(Season Ended) due on 11/28/2024 Annual PCP Team Chronic Disease Visit due on 09/21/2025 Diabetes Screening due on 07/15/2026 Lipid Screening due on 07/15/2028 Colorectal Cancer Screening due on 02/11/2031 DTaP,Tdap,Td Vaccine(2 - Td or Tdap) due on 08/21/2031 Hepatitis C Screening Completed HIV Screening Completed DATA REVIEWED: No new labs labs ordered by not drawn yet. Assessment/Plan 1. Annual physical exam (Z00.00) - Conducted comprehensive physical examination. - Discussed current health status, including diet and exercise habits. - Scheduled fasting blood work to include cholesterol, kidney, liver, electrolytes, fasting blood sugar, and blood counts. - Col (more content not included)... Normal [facility] CNOVon 01-25-2024 CNOV Office Visit (GENSWS) TRE MENDOZA ([id number]) 1970 M [place] Date Time Provider Department 01/25/24 4:30 PM [facility] During your visit today, we recorded the following information about you: Pulse Respiration Blood pressure Weight 91/minute 16/minute 138/81 88 kg Height 1.803 m Karime Hart APRN.CNP 01/25/2024 4:39 PM Signed SUBJECTIVE: Tre Mendoza presents for follow up of his Bilateral inguinal hernia repair WITH mesh. On 01/11/24 he underwent a hernia repair, tolerated the procedure well and was discharged home. Patient complaints: None He denies pain, drainage, redness around wound, difficulty voiding, and constipation. OBJECTIVE: BP 138/81 Pulse 91 Resp 16 Ht 180.3 cm (5' 11) Wt 88 kg (194 lb) SpO2 97% BMI 27.06 kg/m? General Appearance: Well developed, No acute distress Abdomen: Abdomen soft, non-distended. Incision: no drainage, no erythema, no swelling, no ecchymosis, and no tenderness. Glue still intact. Genitalia: mild bruising on the right testicle. The sensitive examination was discussed with the Patient or Patient's Authorized Corporate Auditor. As applicable, any other physician, advance practice provider, medical student, or other health professional student that will be observing or involved in the sensitive examination for educational or training purposes was discussed with the Patient or Authorized Corporate Auditor. The Patient or Authorized Corporate Auditor has agreed to proceed with the sensitive examination. (Sensitive examination includes inspection and/or palpation of the breasts, pelvis, prostate and anorectal regions) IMPRESSION: Post op course: Normal PLAN: Post-op patient instructions were reviewed with the patient. I have explained to Mr. Mendoza that he may return to normal activity with the following restrictions: No heavy lifting, pushing, or pulling greater than 20 lbs for 4 more weeks post-operatively. I have encouraged him to contact me at any time with any questions or concerns that may arise. Follow up: ZARIA Hart APRN.DRAG DOWN Allergies As of Date: 01/25/2024 Noted Allergy Reaction IV CONTRAST (IODINE) 05/14/2015 2 - Rash Date Reviewed: 01/25/2024 Reviewed by: Karime Hart APRN.DRAG DOWN - Fully Assessed Reason for Visit: Follow Up [171] Primary Visit Diagnosis:Right inguinal hernia [K40.90] Other Visit Diagnosis:Left inguinal hernia [K40.90] Prescriptions as of 01/25/2024 - losartan (COZAAR) 25 mg tablet Take 1 tablet by mouth once daily. - tirzepatide, weight loss (ZEPBOUND) 2.5 mg/0.5 mL pen injector Inject 2.5 mg subcutaneously one time a week. - fluticasone (FLONASE) 50 mcg/actuation nasal spray Use 2 Sprays in each nostril once daily. Rinse mouth after use. - CETIRIZINE HCL (ZYRTEC ORAL) Take by mouth. Problem List As Of Date 01/25/2024 Noted Resolved Colon cancer screening [Z12.11] 02/11/2021 02/11/2021 Mixed hyperlipidemia [E78.2] 08/20/2022 Essential hypertension [I10] 08/20/2022 Allergies [T78.40XA] 08/20/2022 SVT (supraventricular tachycardia) (HCC) [I47.1*08/20/2022 Encounter Status:Closed by KARIME HART on 01/25/24 [facility] ANES POSTPROC EVALon 024 ANES POSTPROC EVAL HNO ID: [id number] Author: VIDA GU MD Service: Anesthesiology Author Type: Anesthesiologist Type: Anesthesia Postprocedure Evaluation Filed: 01/11/2024 20:26 Note Text: POST ANESTHESIA EVALUATION NOTE : 1970 Procedure Summary Date: 01/11/24 Room / Location: [place] OR03 / [place] Anesthesia Start: 1550 Anesthesia Stop: 1759 Procedure: LAPAROSCOPIC HERNIORRHAPHY, INGUINAL INITIAL, right possible left (Bilateral: Groin) Diagnosis: Right inguinal hernia (Right inguinal hernia [K40.90]) Surgeons: Vani Zambrano DO Responsible Provider: Vida Gu MD Anesthesia Type: general ASA Status: 2 Anesthesia Type: general Airway Type: ETT Last Vitals Vitals Value Taken Time BP 145/93 01/11/241844 Temp 36 ?C (96.8 ?F) 01/11/24 1800 Pulse 73 01/11/241846 Resp 20 01/11/241846 SpO2 98 % 01/11/241846 Vitals shown include unfiled device data. Post Anesthesia Patient Status Patient Evaluation: PACU. PACU/ICU Patient Condition: stable. Anticipated Disposition: inpatient floor planned admission. Neurological Status: aware and responsive. Pulmonary Status: breathing comfortably on room air Airway Control: returned to baseline unsupported. Cardiovascular Status: stable. Pain Management: clinically adequate - multimodal analgesia pain management approach Postoperative Hydration: acceptable. Intraoperative Events: no significant anesthesia events Post Operative Nausea/Vomiting Status: no significant post operative nausea or vomiting Recommendation: continue current plan of care and further care per PACU/ICU/floor team. Anesthesia Observations No Documentation SIGNATURE: Vida Gu MD PATIENT NAME: Tre Mendoza DATE: January 11, 2024 TIME: 8:26 PM CSN: [id number] [facility] ANES PRE-OPon 01-11-2024 ANES PRE-OP HNO ID: [id number] Author: VIDA GU MD Service: Anesthesiology Author Type: Anesthesiologist Type: Anesthesia Preprocedure Evaluation Filed: 01/11/2024 13:50 Note Text: ANESTHESIOLOGY DAY OF SURGERY NOTE : 1970 Procedure Information Date/Time: 01/11/24 1314 Procedure: LAPAROSCOPIC HERNIORRHAPHY, INGUINAL INITIAL, right possible left (Pending: Groin) Location: [place] [address] / [place] Surgeons: Vani Zambrano DO Estimated body mass index is 26.5 kg/m? as calculated from the following: Height as of this encounter: 180.3 cm (5' 11). Weight as of this encounter: 86.2 kg (190 lb). Most recent hematocrit and potassium results: Hematocrit 44.8 07/12/2022 Potassium 4.5 07/16/2023 Relevant Problems CARDIO (+) Essential hypertension (+) SVT (supraventricular tachycardia) (HCC) I - PHYSICAL EVALUATION AIRWAY Patient intubated: No. Tracheostomy tube not present Mallampati: II. TM distance: >3 FB. Neck ROM: full ROM without neurological symptoms. Mouth opening: adequate. Short neck: no. Thick neck: no DENTAL Dental findings: teeth intact. Additional exam findings: no II - ANESTHESIA PLAN ASA Score: 2 Anesthetic Plan: general Airway type: ETT The patient is not a current smoker. NPO Status: adequate Beta Bryn Monitoring Plan Monitoring plan: Standard ASA. Post Procedure Analgesic Plan Postoperative analgesic plan: parenteral or oral opioids and multimodal analgesia. Informed Consent Anesthetic risks, benefits, alternatives, personnel and consent discussed: yes. Patient / Responsible Green Party agrees to proceed: yes Patient / Surrogate agrees to blood products: yes DNR status not reviewed with patient and/or family prior to surgery. Significant changes in the patient condition since the History and Physical, not otherwise documented in primary service progress note: no. Potential Anesthesia issues that may suggest increased risk of complications or contraindication to planned procedure: none. Vitals Value Taken Time BP 138/86 01/11/24 1219 Pulse Resp 16 01/11/24 1219 Temp 36.7 ?C (98.1 ?F) 01/11/24 1219 SpO2 100 % 01/11/24 1219 Facility-Administere d Medications as of 01/11/2024 Medication Dose Route Frequency lidocaine (PF) 10 mg/mL (1 %) 1-2 mg injection (XYLOCAINE) 0.1-0.2 mL INTRADERMAL PRN NaCl 0.9% iv flush bag 20 mL INTRAVENOUS PRN ceFAZolin iv piggyback 2 g in D5W (iso-osmotic) 100 mL (ANCEF) 2 g INTRAVENOUS Pre-Op Once [COMPLETED] acetaminophen 1,000 mg tab(s) (TYLENOL) 1,000 mg ORAL Pre-Op Once [COMPLETED] promethazine 12.5 mg tab(s) (PHENERGAN) 12.5 mg ORAL Pre-Op Once Outpatient Medications as of 01/11/2024 Medication Sig losartan (COZAAR) 25 mg tablet Take 1 tablet by mouth once daily. CETIRIZINE HCL (ZYRTEC ORAL) Take by mouth. tirzepatide, weight loss (ZEPBOUND) 2.5 mg/0.5 mL pen injector Inject 2.5 mg subcutaneously one time a week. (Patient not taking: Reported on 12/30/2023) fluticasone (FLONASE) 50 mcg/actuation nasal spray Use 2 Sprays in each nostril once daily. Rinse mouth after use. I have interviewed and examined the patient. I have reviewed the medical record and/or the pre-anesthesia evaluation, pertinent labs, and test results. This contains updated information obtained within 48 hours of Surgery/Procedure. SIGNATURE: Vida Gu MD PATIENT NAME: Tre Mendoza DATE: January 11, 2024 TIME: 1:50 PM CSN: [id number] [facility] BRIEF OP NOTon 01-11-2024 BRIEF OP NOT HNO ID: [id number] Author: VANI ZAMBRANO DO Service: General Surgery Author Type: Physician Type: Brief Op Note Filed: 01/11/2024 17:37 Note Text: BRIEF OPERATIVE / PROCEDURE NOTE LOG ID: [id number] SURGERY/PROCEDURE DATE: 01/11/2024 INCISION/PROCEDURE START TIME: 4:14 PM INCISION CLOSE/PROCEDURE END TIME: SURGEON(S)/PROCEDURA LIST(S) AND PATIENT SCHEDULER(S): Surgeons and Role: * Vani Zambrano DO - Primary * Mallory Curtis DO - Resident - Assisting Nurse Practitioner: Kamila Menjivar APRN.DRAG DOWN Physician Chrome Cleaner: Koki Nagel PA-C SURGERY/PROCEDURE(S) : Laparoscopic inguinal hernia repair with mesh placement via totally extraperitoneal approach, bilateral ANESTHESIA: General FINDINGS: Large right indirect inguinal hernia Small left indirect inguinal hernia Left cord lipoma ESTIMATED BLOOD LOSS: 10 mls SPECIMENS: None COMPLICATIONS: None IMPLANTS: Implant Name Type Inv. Item Serial No. Commodity Analyst Lot No. LRB No. Used Action MED DEXTILE RT 13CM X 9CM (5.1' X 3.5'') - [id number] Mesh MED DEXTILE RT 13CM X 9CM (5.1' X 3.5'') [employer] [id number] Right 1 Implanted MED DEXTILE LT 13CM X 9CM (5.1' X 3.5'') - [id number] Mesh MED DEXTILE LT 13CM X 9CM (5.1' X 3.5'') [employer] [id number] Left 1 Implanted CLOSURE TECHNIQUE: Primary PRE-OP/PRE-PROCEDURE DIAGNOSIS: Right inguinal hernia POST-OP/POST-PROCEDU RE DIAGNOSIS: Right indirect inguinal hernia, Left indirect inguinal hernia, left cord lipoma Patient was accompanied to the next level of care by a licensed practitioner from the surgical team pending completion of this brief op note (or operative note) SIGNATURE: Vani Zambrano DO PATIENT NAME: Tre Mendoza DATE: January 11, 2024 TIME: 5:34 PM [facility] OPERATIVE NOon 01-11-2024 OPERATIVE NO HNO ID: [id number] Author: VANI ZAMBRANO DO Service: General Surgery Author Type: Physician Type: Operative Report Filed: 01/11/2024 17:48 Note Text: OPERATIVE/PROCEDURE REPORT LOG ID: [id number] SURGERY/PROCEDURE DATE: 01/11/2024 INCISION/PROCEDURE START TIME: 4:14 PM INCISION CLOSE/PROCEDURE END TIME: 5:45 PM SURGEON(S)/PROCEDURA LIST(S) AND PATIENT SCHEDULER(S): Surgeons and Role: * Vani Zambrano DO - Primary * Mallory Curtis DO - Resident - Assisting Nurse Practitioner: Kamila Menjivar APRN.DRAG DOWN Physician Chrome Cleaner: Koki Nagel PA-C SURGERY/PROCEDURE(S) : Laparoscopic inguinal hernia repair with mesh placement via totally extraperitoneal approach, bilateral ANESTHESIA: General INDICATION: 53 year old male presented to clinic on 12/30/2023 with right groin bulge that appeared one month prior. Initially the mass was painful. A right testicular US showed normal appearance of testicles, normal arterial inflow and venous outflow, small bilateral hydrocele and varicocele (has outpatient follow up with urology scheduled). He is a good candidate for a laparoscopic inguinal hernia repair. All risks, benefits, alternatives, and possible complications for a laparoscopic inguinal hernia repair with mesh placement, right possible left, were discussed with the patient and he provided consent to proceed with the operation. SURGERY/PROCEDURE DETAILS: The patient was identified in the pre-operative area and a sign-in huddle was performed. He was transferred to the operative room and transferred to the OR table in the supine position. After smooth induction of anesthesia, the abdomen was prepped and draped in a sterile surgical fashion. An infraumbilical transverse incision was carried through skin and subcutaneous tissue with a scalpel and deepened with electrocautery to the level of the fascia. The anterior rectus sheath was incised transversely for about 2 cm and the rectus muscle split bluntly. This allowed visualization of the properitoneal space, which was bluntly dissected. A balloon dissector was inserted and inflated under direct visualization. The balloon was then removed and the space maintained with CO2 insufflation. Additional 5-mm ports x2 were placed in the lower infraumbilical midline. Using blunt dissectors, we explored the right inguinal region, and identified a large chronic appearing indirect inguinal hernia. This was completely reduced. The cord structures were identified and preserved in this process. A similar procedure was done on the left side, and we visualized a small indirect inguinal hernia and left cord lipoma. While reducing the peritoneum on the left, a small hole was created in the peritoneum. This was easily closed with two 5mm clips. The cord lipoma was bluntly dissected from the the cord structures. We then placed a 13cm x 9cm mesh in the right inguinal space and secured it with tacks to the pubic symphysis, anterior midline and laterally towards the anterior superior iliac spine. Excellent hemostasis was maintained throughout the dissection. A similar process was carried out on the left and the left mesh was secured with tacks. The space was then exsufflated under visualization. Ports were removed. The posterior rectus sheath was grasped with two hemostats and sharply opened under visualization and pneumoperitoneum was completely released. The posterior rectus sheath was then closed with an 0 vicryl in a figure-of-8 fashion. The rectus muscles was allowed to return to its anatomical position and the anterior rectus sheath was closed with running #0 Vicryl stitch. Local anesthetic, 0.5% bupivicaine was administered to all surgical sites at skin and fascia level. A 4-0 subcuticular Monocryl was used to close the skin. Surgical skin glue was then applied as a dressing. The patient tolerated procedure well, awoke from general anesthesia without difficulty, and was transported to the PACU in stable condition. All needle, sponge, and instrument counts were correct. FINDINGS: Large right indirect inguinal hernia Small left indirect inguinal hernia Left cord lipoma PRE-OP/PRE-PROCEDURE DIAGNOSIS: Right inguinal hernia POST-OP/POST-PROCEDU RE DIAGNOSIS: Right indirect inguinal hernia, Left indirect inguinal hernia, Left cord lipoma ESTIMATED BLOOD LOSS: 10 mls SPECIMENS: None IMPLANTABLE DEVICES: Implant Name Type Inv. Item Serial No. Commodity Analyst Lot No. LRB No. Used Action MED DEXTILE RT 13CM X 9CM (5.1' X 3.5'') - [id number] Mesh MED DEXTILE RT 13CM X 9CM (5.1' X 3.5'') [employer] [id number] Right 1 Implanted MED DEXTILE LT 13CM X 9CM (5.1' X 3.5'') - [id number] Mesh MED DEXTILE LT 13CM X 9CM (5.1' X 3.5'') [employer] [id number] Left 1 Implanted DRAINS: None COMPLICATIONS: None CLOSURE TECHNIQUE: Primary PARTICIPATION IN SURGERY/PROCEDURE: I/primary surgeon/proceduralis t performed the procedure with assist (more content not included)... [facility] 01-01-2024 [facility] Telephone (MEPRAD) TRE MENDOZA ([id number]) 1970 M [facility] Date Time Provider Department 01/01/24 ANTONELLA MCNAIR During your visit today, we recorded the following information about you: Antonella Mcnair PA-C 01/01/2024 9:08 AM Signed Spoke to the patient regarding stopping Zepbound weight loss injection one week prior to surgery scheduled with Dr Zambrano on 01-11-24. Patient stated he had stopped the medication already 3 months ago. Antonella Mcnair PA-C Allergies As of Date: 01/01/2024 Noted Allergy Reaction IV CONTRAST (IODINE) 05/14/2015 2 - Rash Date Reviewed: 12/30/2023 Reviewed by: Becky Benitez RN - Fully Assessed Prescriptions as of 01/01/2024 - losartan (COZAAR) 25 mg tablet Take 1 tablet by mouth once daily. - tirzepatide, weight loss (ZEPBOUND) 2.5 mg/0.5 mL pen injector Inject 2.5 mg subcutaneously one time a week. - fluticasone (FLONASE) 50 mcg/actuation nasal spray Use 2 Sprays in each nostril once daily. Rinse mouth after use. - CETIRIZINE HCL (ZYRTEC ORAL) Take by mouth. Problem List As Of Date 01/01/2024 Noted Resolved Colon cancer screening [Z12.11] 02/11/2021 02/11/2021 Mixed hyperlipidemia [E78.2] 08/20/2022 Essential hypertension [I10] 08/20/2022 Allergies [T78.40XA] 08/20/2022 SVT (supraventricular tachycardia) (HCC) [I47.1*08/20/2022 Encounter Status:Closed by ANTONELLA MCNAIR on 01/01/24 [facility] 12-30-2023 [facility] Office Visit (GENSWS) TRE MENDOZA ([id number]) 1970 M [facility] Date Time Provider Department 12/30/23 8:15 AM VANI ZAMBRANO During your visit today, we recorded the following information about you: Temperature Pulse Blood pressure Weight 97.2 degrees 85/minute 145/93 87.1 kg Height 1.803 m Vani Zambrano DO 12/30/2023 9:04 AM Signed General Surgery Consult REASON FOR VISIT Tre Mendoza is a 53 year old male who is scheduled for a consult at the request of Suzanne Velez for right groin mass. My final recommendations will be communicated back to the requesting physician by the way of the shared medical record, fax, or via US Mail History of Present Illness: Tre Mendoza is a 53 year old male with contributing past medical and surgical history significant for HTN. The patient presents with right groin mass. He was seen in PCP office on 12/07/2023 and reported new onset right testicular pain without known cause. First noticed the pain while walking on flat ground. Also noticed slight swelling of the right testicle and endorsed feeling a pop in his right groin and then the pain improved. Right testicular US showed normal appearance of testicles, normal arterial inflow and venous outflow, small bilateral hydrocele and varicocele. He is scheduled for outpatient urology office visit on 01/19/2024. There was no hernia present on ultrasound imaging. He had a follow-up virtual visit with PCP on 12/23/2023. Reported that he still had some pain/tenderness and an area that intermittently gets larger as the day progresses, but remains reducible. A CT Pelvis was then obtained and showed a 0.7cm superficial calcification within the superior aspect of the right inguinal canal, nonspecific in nature but likely post-inflammatory etiology. No other right inguinal mass or hernia identified on imaging. He says that the bulge in his groin has continued to get larger and intermittently painful. He is able to easily reduce the bulge, and it does reduce when he sits or lays down. No signs or symptoms of obstruction or incarceration. PAST MEDICAL HISTORY Diagnosis Date Actinic keratosis of right cheek 2013 Hypertension Mixed hyperlipidemia Right groin mass SVT (supraventricular tachycardia) (HCC) PAST SURGICAL HISTORY Procedure Laterality Date COLONOSCOPY FLX DX W/COLLJ SPEC WHEN PFRMD 02/11/2021 EYE SURGERY HX Right 03/30/1992 SKIN BIOPSY HX FAMILY HISTORY Problem Relation Age of Onset Heart Failure Father 54 Diabetes Father Breast Cancer Mother 69 Social History Tobacco Use Smoking status: Never Smokeless tobacco: Never Vaping Use Vaping status: Never Used Substance Use Topics Alcohol use: Yes Comment: 1 beer a month Drug use: No The patient has the following: Problem List Noted Noted By Resolved Resolved By Mixed hyperlipidemia 08/20/2022 Rene Mina MD No Essential hypertension 08/20/2022 Rene Mina MD No Allergies 08/20/2022 Rene Mina MD No SVT (supraventricular tachycardia) (HCC) 08/20/2022 Rene Mina MD No Colon cancer screening 02/11/2021 Jose Núñez MD 02/11/2021 Jose Núñez MD MEDICATIONS Current Outpatient Medications Medication Sig Dispense Refill losartan (COZAAR) 25 mg tablet Take 1 tablet by mouth once daily. 90 tablet 1 fluticasone (FLONASE) 50 mcg/actuation nasal spray Use 2 Sprays in each nostril once daily. Rinse mouth after use. 1 Each 5 CETIRIZINE HCL (ZYRTEC ORAL) Take by mouth. tirzepatide, weight loss (ZEPBOUND) 2.5 mg/0.5 mL pen injector Inject 2.5 mg subcutaneously one time a week. (Patient not taking: Reported on 12/30/2023) 6 mL 1 No current facility-administere d medications for this visit. CURRENT ALLERGIES ALLERGIES Allergen Reactions Iv Contrast [Iodine] Rash REVIEW OF SYSTEMS PAIN ASSESSMENT: Pain Pain Level: 5 Pain Location: Abdomen-Right Lower Quadrant Description: Dull Duration Units: Minutes Frequency: Intermittent Intervention/Comfort measure: Reposition, Relaxation. GENERAL: No weight loss, malaise or fevers. RESPIRATORY: Negative for cough, wheezing, or shortness of breath. CARDIOVASCULAR: Negative for chest pain, leg swelling, or palpitations. GI: Right groin pain when bulge is present. Gets worse with lifting. No other abdominal pain, nausea, vomiting, diarrhea, or constipation. : No history of dysuria, frequency or incontinence. PHYSICAL EXAMINATION BP 145/93 Pulse 85 Temp 97.2 Ht 5' 11 (1.80m) Wt 192 lb (87.1kg) SpO2 99% BMI 26.79 kg/(m2). General Appearance: Well appearing, alert, in no acute distress, well-hydrated, well nourished. Lungs: Lungs clear to auscultation. No wheezing, rhonchi, rales Heart: RRR without murmur, gallop, or rubs. No ectopy Groin: Right inguinal obvious bulge on exam while standing, soft and eas (more content not included)... Normal [facility] HISTORY PHYSICALon 4 HISTORY PHYSICAL HNO ID: [id number] Author: VANI ZAMBRANO, DO Service: ? Author Type: Physician Type: H&P Filed: 12/30/2023 09:04 Note Text: General Surgery Consult REASON FOR VISIT Tre Mendoza is a 53 year old male who is scheduled for a consult at the request of Suzanne Velez for right groin mass. My final recommendations will be communicated back to the requesting physician by the way of the shared medical record, fax, or via US Mail History of Present Illness: Tre Mendoza is a 53 year old male with contributing past medical and surgical history significant for HTN. The patient presents with right groin mass. He was seen in PCP office on 12/07/2023 and reported new onset right testicular pain without known cause. First noticed the pain while walking on flat ground. Also noticed slight swelling of the right testicle and endorsed feeling a pop in his right groin and then the pain improved. Right testicular US showed normal appearance of testicles, normal arterial inflow and venous outflow, small bilateral hydrocele and varicocele. He is scheduled for outpatient urology office visit on 01/19/2024. There was no hernia present on ultrasound imaging. He had a follow-up virtual visit with PCP on 12/23/2023. Reported that he still had some pain/tenderness and an area that intermittently gets larger as the day progresses, but remains reducible. A CT Pelvis was then obtained and showed a 0.7cm superficial calcification within the superior aspect of the right inguinal canal, nonspecific in nature but likely post-inflammatory etiology. No other right inguinal mass or hernia identified on imaging. He says that the bulge in his groin has continued to get larger and intermittently painful. He is able to easily reduce the bulge, and it does reduce when he sits or lays down. No signs or symptoms of obstruction or incarceration. PAST MEDICAL HISTORY Diagnosis Date Actinic keratosis of right cheek 2013 Hypertension Mixed hyperlipidemia Right groin mass SVT (supraventricular tachycardia) (HCC) PAST SURGICAL HISTORY Procedure Laterality Date COLONOSCOPY FLX DX W/COLLJ SPEC WHEN PFRMD 02/11/2021 EYE SURGERY HX Right 03/30/1992 SKIN BIOPSY HX FAMILY HISTORY Problem Relation Age of Onset Heart Failure Father 54 Diabetes Father Breast Cancer Mother 69 Social History Tobacco Use Smoking status: Never Smokeless tobacco: Never Vaping Use Vaping status: Never Used Substance Use Topics Alcohol use: Yes Comment: 1 beer a month Drug use: No The patient has the following: Problem List Noted Noted By Resolved Resolved By Mixed hyperlipidemia 08/20/2022 Rene Mina MD No Essential hypertension 08/20/2022 Rene Mina MD No Allergies 08/20/2022 Rene Mina MD No SVT (supraventricular tachycardia) (HCC) 08/20/2022 Rene Mina MD No Colon cancer screening 02/11/2021 Jose Núñez MD 02/11/2021 Jose Núñez MD MEDICATIONS Current Outpatient Medications Medication Sig Dispense Refill losartan (COZAAR) 25 mg tablet Take 1 tablet by mouth once daily. 90 tablet 1 fluticasone (FLONASE) 50 mcg/actuation nasal spray Use 2 Sprays in each nostril once daily. Rinse mouth after use. 1 Each 5 CETIRIZINE HCL (ZYRTEC ORAL) Take by mouth. tirzepatide, weight loss (ZEPBOUND) 2.5 mg/0.5 mL pen injector Inject 2.5 mg subcutaneously one time a week. (Patient not taking: Reported on 12/30/2023) 6 mL 1 No current facility-administere d medications for this visit. CURRENT ALLERGIES ALLERGIES Allergen Reactions Iv Contrast [Iodine] Rash REVIEW OF SYSTEMS PAIN ASSESSMENT: Pain Pain Level: 5 Pain Location: Abdomen-Right Lower Quadrant Description: Dull Duration Units: Minutes Frequency: Intermittent Intervention/Comfort measure: Reposition, Relaxation. GENERAL: No weight loss, malaise or fevers. RESPIRATORY: Negative for cough, wheezing, or shortness of breath. CARDIOVASCULAR: Negative for chest pain, leg swelling, or palpitations. GI: Right groin pain when bulge is present. Gets worse with lifting. No other abdominal pain, nausea, vomiting, diarrhea, or constipation. : No history of dysuria, frequency or incontinence. PHYSICAL EXAMINATION BP 145/93 Pulse 85 Temp 97.2 Ht 5' 11 (1.80m) Wt 192 lb (87.1kg) SpO2 99% BMI 26.79 kg/(m2). General Appearance: Well appearing, alert, in no acute distress, well-hydrated, well nourished. Lungs: Lungs clear to auscultation. No wheezing, rhonchi, rales Heart: RRR without murmur, gallop, or rubs. No ectopy Groin: Right inguinal obvious bulge on exam while standing, soft and easily reducible. Completely reduces spontaneously while in the supine position. No overlying skin changes. No obvious +impulse or defect on the left side. The sensitive examination was discussed with the Patient or Patient's Authorized Corporate Auditor. As applicable, any other physician, advance practice provi (more content not included)... Normal [facility] CT PELVIS WO IVCONon 024 CT PELVIS WO IVCON * * *Final Report* * * DATE OF EXAM: Dec 29 2023 3:46PM [facility] 0556 - CT PELVIS WO IVCON / PROCEDURE REASON: multiple diagnoses * * * * Physician Interpretation * * * * EXAMINATION: CT PELVIS WITHOUT IV CONTRAST CLINICAL HISTORY: Evaluate for right groin mass or hernia. TECHNIQUE: Non-IV contrast imaging of the pelvis was performed using standard technique, scanning from just above the iliac crest through the pelvic floor. Unenhanced imaging is limited for the evaluation of some pathology. Contrast: IV: None Oral: 10 ml of Omni 240 10-25ml diluted with water CT Radiation dose: Integrated Dose-length product (DLP) for this visit = 361 mGy*cm. CT Dose Reduction Employed: Automated exposure control(AEC) and iterative recon COMPARISON: Pelvic and scrotal ultrasound from 12/10/2023 RESULT: There is a 0.7 cm calcification within the superior aspect of the right inguinal canal (series 5, image 58), likely the sequela of prior inflammation. Otherwise, unremarkable appearance of the subcutaneous tissues of the right groin. No right inguinal hernia. The left groin and left inguinal canal are unremarkable. Imaged bowel loops, the prostate, and urinary bladder are unremarkable. No pelvic mass or fluid collection. Degenerative changes involve the lower lumbar spine. No destructive lytic or blastic osseous abnormality. IMPRESSION: 1. A 0.7 cm superficial calcification within the superior aspect of the right inguinal canal is nonspecific, but likely the sequela of prior inflammation. This could represent the palpable region of concern. 2. Otherwise, no right inguinal mass or hernia, as queried. 3. No acute abnormality. Electrical Drafter: LAZARO Transcribe Date/Time: Dec 29 2023 3:55P Dictated by : SCOTT CALDERON MD This examination was interpreted and the report reviewed and electronically signed by: SCOTT CALDERON MD on Dec 29 2023 4:00PM EST [id number] CN Normal [facility] CT Pelvis WO contraston 10-0 IMPRESSION: 1. A 0.7 cm superficial calcification within the superior aspect of the right inguinal canal is nonspecific, but likely the sequela of prior inflammation. This could represent the palpable region of concern. 2. Otherwise, no right inguinal mass or hernia, as queried. 3. No acute abnormality. Electrical Drafter: PSCB Transcribe Date/Time: Dec 29 2023 3:55P Dictated by : SCOTT CALDERON MD This examination was interpreted and the report reviewed and electronically signed by: SCOTT CALDERON MD on Dec 29 2023 4:00PM EST DIVISION OF RADIOLOGY * * *Final Report* * * DATE OF EXAM: Dec 29 2023 3:46PM [facility] 0556 - CT PELVIS WO IVCON / PROCEDURE REASON: multiple diagnoses * * * * Physician Interpretation * * * * EXAMINATION: CT PELVIS WITHOUT IV CONTRAST CLINICAL HISTORY: Evaluate for right groin mass or hernia. TECHNIQUE: Non-IV contrast imaging of the pelvis was performed using standard technique, scanning from just above the iliac crest through the pelvic floor. Unenhanced imaging is limited for the evaluation of some pathology. Contrast: IV: None Oral: 10 ml of Omni 240 10-25ml diluted with water CT Radiation dose: Integrated Dose-length product (DLP) for this visit = 361 mGy*cm. CT Dose Reduction Employed: Automated exposure control(AEC) and iterative recon COMPARISON: Pelvic and scrotal ultrasound from 12/10/2023 RESULT: There is a 0.7 cm calcification within the superior aspect of the right inguinal canal (series 5, image 58), likely the sequela of prior inflammation. Otherwise, unremarkable appearance of the subcutaneous tissues of the right groin. No right inguinal hernia. The left groin and left inguinal canal are unremarkable. Imaged bowel loops, the prostate, and urinary bladder are unremarkable. No pelvic mass or fluid collection. Degenerative changes involve the lower lumbar spine. No destructive lytic or blastic osseous abnormality. DIVISION OF RADIOLOGY Provider, [facility] [place] - 12/29/2023 * * *Final Report* * * DATE OF EXAM: Dec 29 2023 3:46PM [facility] 0556 - CT PELVIS WO IVCON / PROCEDURE REASON: multiple diagnoses * * * * Physician Interpretation * * * * EXAMINATION: CT PELVIS WITHOUT IV CONTRAST CLINICAL HISTORY: Evaluate for right groin mass or hernia. TECHNIQUE: Non-IV contrast imaging of the pelvis was performed using standard technique, scanning from just above the iliac crest through the pelvic floor. Unenhanced imaging is limited for the evaluation of some pathology. Contrast: IV: None Oral: 10 ml of Omni 240 10-25ml diluted with water CT Radiation dose: Integrated Dose-length product (DLP) for this visit = 361 mGy*cm. CT Dose Reduction Employed: Automated exposure control(AEC) and iterative recon COMPARISON: Pelvic and scrotal ultrasound from 12/10/2023 RESULT: There is a 0.7 cm calcification within the superior aspect of the right inguinal canal (series 5, image 58), likely the sequela of prior inflammation. Otherwise, unremarkable appearance of the subcutaneous tissues of the right groin. No right inguinal hernia. The left groin and left inguinal canal are unremarkable. Imaged bowel loops, the prostate, and urinary bladder are unremarkable. No pelvic mass or fluid collection. Degenerative changes involve the lower lumbar spine. No destructive lytic or blastic osseous abnormality. IMPRESSION IMPRESSION: 1. A 0.7 cm superficial calcification within the superior aspect of the right inguinal canal is nonspecific, but likely the sequela of prior inflammation. This could represent the palpable region of concern. 2. Otherwise, no right inguinal mass or hernia, as queried. 3. No acute abnormality. Electrical Drafter[facility] Transcribe Date/Time: Dec 29 2023 3:55P Dictated by : SCOTT CALDERON MD This examination was interpreted and the report reviewed and electronically signed by: SCOTT CALDERON MD on Dec 29 2023 4:00PM EST [facility] Radiology Study observation (narrative) [facility] CT Pelvis WO contrastOrdered By: [facility] Provider on 12-29-2023 [facility] US DOPPLER COMPLETEon 2023 US DOPPLER COMPLETE * * *Final Report* * * DATE OF EXAM: Dec 10 2023 4:27PM [facility] 1033 - US DOPPLER COMPLETE / PROCEDURE REASON: multiple diagnoses * * * * Physician Interpretation * * * * EXAMINATION: SCROTAL ULTRASOUND WITH DOPPLER IMAGING CLINICAL HISTORY: Right testicular pain. Right groin mass TECHNIQUE: Sonography of the scrotal contents with color flow and spectral Doppler imaging of the testicular vasculature was performed. Images were obtained and stored in a permanent archive. M: US_2 COMPARISON: None RESULT: RIGHT SCROTUM: Right testis: 4.5 x 2.1 x 3.4 cm. Homogeneous with no calcifications or mass. Normal intratesticular arterial and venous flow with normal spectral waveforms. Epididymis: Normal. Vascular flow on Color Doppler is symmetric to the contralateral side. Hydrocele: small present Varicocele: present LEFT SCROTUM: Left testis: 4.4 x 2.1 x 3.6 cm. Homogeneous with no calcifications or mass. Normal intratesticular arterial and venous flow with normal spectral waveforms. Epididymis: Normal. Vascular flow on Color Doppler is symmetric to the contralateral side. Hydrocele: small present Varicocele: present IMPRESSION: Normal sonographic appearance of the testicles. Normal arterial and venous flow within both testes. Small bilateral hydrocele. Bilateral varicocele. Electrical Drafter: LAZARO Transcribe Date/Time: Dec 13 2023 6:07P Dictated by : LEATHA NAGEL MD This examination was interpreted and the report reviewed and electronically signed by: LEATHA NAGEL MD on Dec 13 2023 6:08PM EST [id number] CN Normal [facility] US PELVIS LTDon 12-10-2023 US PELVIS LTD * * *Final Report* * * DATE OF EXAM: Dec 10 2023 4:27PM U 1043 - US PELVIS LTD / PROCEDURE REASON: multiple diagnoses * * * * Physician Interpretation * * * * EXAMINATION: US PELVIS LTD TECHNIQUE: Sonography of the subcutaneous tissues of the right inguinal region was performed. Color Doppler imaging was also performed. Images were obtained and stored in a permanent archive. COMPARISON: None. CLINICAL INDICATION: Right testicular pain. Right groin mass. RESULT: No sonographic abnormality is noted in the subcutaneous tissues of the right inguinal region. No sonographic evidence of inguinal hernia, focal fluid collection or other pathology. - IMPRESSION: No sonographic abnormality in the subcutaneous tissues of the right inguinal region. Electrical Drafter[facility] Transcribe Date/Time: Dec 13 2023 6:06P Dictated by : LEATHA NAGEL MD This examination was interpreted and the report reviewed and electronically signed by: LEATHA NAGEL MD on Dec 13 2023 6:07PM EST [id number] CN Normal [facility] US SCROTUM AND CONTENTSon US SCROTUM AND CONTENTS * * *Final Report* * * DATE OF EXAM: Dec 10 2023 4:27PM [facility] 1063 - US SCROTUM AND CONTENTS / PROCEDURE REASON: multiple diagnoses * * * * Physician Interpretation * * * * EXAMINATION: SCROTAL ULTRASOUND WITH DOPPLER IMAGING CLINICAL HISTORY: Right testicular pain. Right groin mass TECHNIQUE: Sonography of the scrotal contents with color flow and spectral Doppler imaging of the testicular vasculature was performed. Images were obtained and stored in a permanent archive. M: US_2 COMPARISON: None RESULT: RIGHT SCROTUM: Right testis: 4.5 x 2.1 x 3.4 cm. Homogeneous with no calcifications or mass. Normal intratesticular arterial and venous flow with normal spectral waveforms. Epididymis: Normal. Vascular flow on Color Doppler is symmetric to the contralateral side. Hydrocele: small present Varicocele: present LEFT SCROTUM: Left testis: 4.4 x 2.1 x 3.6 cm. Homogeneous with no calcifications or mass. Normal intratesticular arterial and venous flow with normal spectral waveforms. Epididymis: Normal. Vascular flow on Color Doppler is symmetric to the contralateral side. Hydrocele: small present Varicocele: present IMPRESSION: Normal sonographic appearance of the testicles. Normal arterial and venous flow within both testes. Small bilateral hydrocele. Bilateral varicocele. Electrical Drafter[facility] Transcribe Date/Time: Dec 13 2023 6:07P Dictated by : LEATHA NAGEL MD This examination was interpreted and the report reviewed and electronically signed by: LEATHA NAGEL MD on Dec 13 2023 6:08PM EST [id number] CN Normal [facility] CNOVon 12-07-2023 CNOV Office Visit (INTMWS) TRE MENDOZA ([id number]) 1970 M UPA Date Time Provider Department 12/07/23 1:40 PM OLDER, SUZANNE QUINONES During your visit today, we recorded the following information about you: Pulse Respiration Blood pressure Weight 74/minute 16/minute 118/70 88.1 kg OlderSuzanne APRN.CNP 12/07/2023 2:09 PM Signed CC: Patient presents with: Recheck: BP follow up HPI Tre Mendoza is a 53 year old male who presents today for blood pressure follow up. Had losartan decreased 4-6 weeks ago due to asymptomatic hypotension as a result of weight loss. HTN: Mr. Mendoza indicates that he is feeling well and denies any symptoms referable to elevated blood pressure. Specifically denies headache, chest pain, palpitations, dyspnea, and peripheral edema. Patient denies any side effects of his medication(s) and is compliant with their regimen. He does check BP's away from this office with average BP's in the 110s/70s range. Last 3 Encounter BP Readings: Date: BP: 12/07/2023 118/70 10/26/2023 104/72 07/20/2023 118/74 Started with right testicular pain this past Thursday without known cause. Noticed while walking on flat ground. Thinks maybe the right testicle is slightly enlarged. Noticed on Thursday that there was something that felt like it popped to his right groin and the pain improved. Pain is still present to testicle and groin but not as severe. Not affecting his day and is very active today without issue. Denies history of testicular issues, history of hernias, abdominal pain,. N/V/D/constipation, difficulty or pain urinating, blood in urine, injury, falls, fever chills, penile drainage, new sexual partners. REVIEW OF SYSTEMS See HPI PAST MEDICAL HISTORY No date: Actinic keratosis of right cheek Comment: 2013 No date: Hypertension PAST SURGICAL HISTORY 02/11/2021: COLONOSCOPY FLX DX W/COLLJ SPEC WHEN PFRMD 03/30/1992: EYE SURGERY HX; Right No date: SKIN BIOPSY HX ALLERGIES Iv Contrast [Iodine] MEDICATIONS losartan (COZAAR) 25 mg tablet Take 1 tablet by mouth once daily. tirzepatide, weight loss (ZEPBOUND) 2.5 mg/0.5 mL pen injector Inject 2.5 mg subcutaneously one time a week. fluticasone (FLONASE) 50 mcg/actuation nasal spray Use 2 Sprays in each nostril once daily. Rinse mouth after use. CETIRIZINE HCL (ZYRTEC ORAL) Take by mouth. FAMILY HISTORY Problem Relation Age of Onset Heart Failure Father 54 Diabetes Father Breast Cancer Mother 69 Social History Tobacco Use Smoking status: Never Smokeless tobacco: Never Vaping Use Vaping status: Never Used Substance Use Topics Alcohol use: Yes Comment: 1 beer a month Drug use: No PHYSICAL EXAM BP 118/70 Pulse 74 Resp 16 Wt 88.1 kg (194 lb 3.6 oz) SpO2 98% BMI 26.34 kg/m? General Appearance: well appearing, in no acute distress, alert Eyes: conjunctiva pink and moist, no icterus, sclera white, non-injected Lungs: Lungs clear to auscultation. No wheezing, rhonchi, rales. Heart: RRR without murmur, gallop, or rubs. No ectopy Abdomen: Abdomen soft, Bowel sounds normal. No organomegaly tenderness to right groin and with increasing of abdominal pressure bulge noted but retracted with relaxation. Male Genitourinary: Penis normal. No urethral discharge. Scrotum normal to palpation ut right testicle slightly tender. Health maintenance reviewed with patient: Depression Screening Never done Anxiety Screening Never done Covid-19 Vaccine( season) due on 11/29/2023 Influenza Vaccine(1) due on 11/29/2023 Hepatitis B Vaccine(1 of 3 - 19+ 3-dose series) due on 04/20/2024 Shingrix Vaccine(1 of 2) due on 04/20/2024 Annual PCP Team Chronic Disease Visit due on 2024 BP Controlled (<130/80) due on 2024 Diabetes Screening due on 07/15/2026 Lipid Screening due on 07/15/2028 Colorectal Cancer Screening due on 02/11/2031 DTaP,Tdap,Td Vaccine(2 - Td or Tdap) due on 08/21/2031 Hepatitis C Screening Completed HIV Screening Completed DATA REVIEWED: No new labs ASSESSMENT/PLAN: 1. Essential hypertension - ICD9: 401.9, ICD10: I10 (primary diagnosis) - Controlled - Continue current medications - Recommend home blood pressure monitoring, to bring results to next visit - Encouraged sodium restriction, DASH or Mediterranean diet - Recommend regular aerobic exercise - Follow up in 3 months for hypertension visit 2. Right testicular pain - ICD9: 608.9, ICD10: N50.811 Possible inguinal hernia versus other concern. - no urgent concerns in visit but if pain increases, firmness, bulge to lower abdomen that does not go away he needs to go to ER. - US SCROTUM AND CONTENTS - US PELVIS LTD - UA DIP, URINE (POC) - negative 3. Right groin mass - ICD9: 789.39, ICD10: R19.09 As above - US SCROTUM AND CONTENTS - US PELVIS LTD Prescription instructions reviewed with (more content not included)... Normal [facility] UA DIP, URINE (POC)on 2023 BILIRUBIN UA (POCT) Negative Negative [facility] CLARITY UA (POCT) Clear [facility] COLOR UA (POCT) Yellow [facility] GLUCOSE UA (POCT) Negative Negative mg/dL [facility] Hemoglobin Ql (U) Negative Negative [facility] KETONE UA (POCT) Negative Negative mg/dL [facility] LEUKOCYTES UA (POCT) Negative Negative [facility] NITRITE UA (POCT) Negative Negative [facility] PH UA (POCT) 7.0 4.5 - 8.[address] [facility] inic Protein Ql (U) Negative Negative mg/dL [facility] SPECIFIC GRAVITY UA (POCT) 1.015 1.005 - 1.030 [facility] UROBILINOGEN UA (POCT) 0.2 Normal E.U./dL [facility] Location:[address], [place], [place], [id number] [place] [address] POINT OF CARE [facility] XR ANKLE RIGHT 3+ VIEWSon XR ANKLE RIGHT 3+ VIEWS STUDY: Ankle Radiographs; 01/25/2023, 11:31AM. INDICATION: Right ankle pain. COMPARISON: None. ACCESSION NUMBER(S): [id number] TECHNIQUE: Three view(s) of the right ankle. FINDINGS: There is no displaced fracture. The alignment is anatomic. Small plantar calcaneal spur. No soft tissue abnormality is seen. IMPRESSION: No acute osseous abnormality. Signed by Everette Tierney MD Normal [facility] XR Ankle - right 3 Viewson 1 No acute osseous abnormality. Signed by Everette Tierney MD TELERADIOLOGY STUDY: Ankle Radiographs; 01/25/2023, 11:31AM. INDICATION: Right ankle pain. COMPARISON: None. ACCESSION NUMBER(S): [id number] TECHNIQUE: Three view(s) of the right ankle. FINDINGS: There is no displaced fracture. The alignment is anatomic. Small plantar calcaneal spur. No soft tissue abnormality is seen. TELERADIOLOGY Everette Tierney MD - 01/25/2023 STUDY: Ankle Radiographs; 01/25/2023, 11:31AM. INDICATION: Right ankle pain. COMPARISON: None. ACCESSION NUMBER(S): [id number] TECHNIQUE: Three view(s) of the right ankle. FINDINGS: There is no displaced fracture. The alignment is anatomic. Small plantar calcaneal spur. No soft tissue abnormality is seen. IMPRESSION: No acute osseous abnormality. Signed by Everette Tierney MD [facility] Work Phone: Radiology Study observation (narrative) [facility] Work Phone: XR Ankle - right 3 ViewsOrde red By: Everette Tierney on 01-25-2023 [facility] Work Phone: XR ELBOW GENERAL 2V AP/LAT R IGHTon 10-01-2021 [facility] Provider Note - ED v3on 03-0 Provider Note - ED v3 Provider Note: Chart Review: HISTORY OF PRESENTING ILLNESS TRE is a 50 year old Male and was seen by me at 03-Jun-2021 16:58. Triage Information: Most recent Vital Sign Value Date PAST MEDICAL HISTORY CURRENT OR FORMER SUBSTANCE USE: Tobacco/Nicotine Use: never smoker Alcohol Use: denies ALLERGIES/INTOLERANC ES: No Known Allergies HEALTH HISTORY: No documented data. OUTPATIENT MEDICATIONS: Home Medications Review Status for Reconciliation: N/A Med Status: Patient Currently Takes Medications Drug Name: ZyrTEC 10 mg oral tablet, chewable Instructions: 1 tab(s) orally once a day SIGNIFICANT EVENTS: No documented data. MDM MDM/ED COURSE: This note was dictated using Dragon Dictation there may be errors in spelling, grammar, formatting, and misrecognization of what was dictated. Chief Complaint: ``cough and congestion HPI: Historian patient States that symptoms started 2 weeks ago started to feel better last Thursday then symptoms has worsened since. Complains of see ROS. Denies see ROS Has tried taking OTC cough and cold. Factors that aggravate symptoms include denies. Patient was not recently exposed to sick contact. Patient has had similar symptoms like this before with sinus infection. Recent Travel denies History of COVID infection: Denies Review of Systems (+)=Complains of (-)= Denies General: : (-)Weakness, (+)Fatigue,(-)Headac he and (-)Fever (-) Chills Mouth/Throat: (+) Sore Throat, (+ )Hoarseness, (+)Post nasal drip Eyes:(-) Eye pain, (-)change in vision,( -)flashing lights. Neck:(-) Swollen Glands, (-)Stiffness, Nose/Sinuses:(+) Nasal Stuffiness, , (+ yellow-green)Dischar ge, (+)Sinus Pressure. Ears: (-) Pain, (-) Fullness (-)Discharge, (-)Ringing, (-) Dizziness. Skin: (-) itching,(-) change to hair and nails,( -)rash Pulmonary: (+) Cough(,productive), (-) Dyspnea, (-)Wheezing. Cardiac: (-) Chest pain, (+ a little) Chest Congestion, (-)Edema. Gastrointestinal: (-) Nausea,(-) Vomiting,( -)Diarrhea( -)Abdominal Pain. Psychological: (-) Anxiety, (-) Depression, (-) Thoughts of self-harm. PHYSICAL EXAM Patient in seated position. Appearance with dull nasal voice} well groomed, alert and orientated, no acute distress, speech clear, and evenly paced, good historian, cooperative. Head: Normocephalic Neuro: No focal neurologic deficits. Age-appropriate, interactive, and, again, nontoxic in appearance. Ear: External pinna skin intact with no mases, lesions, or discharge. no tenderness with manipulation of tragus and pinna. no tenderness, erythema, or swelling over mastoid. Otoscopic: Landmarks external canals clear with no redness swelling, lesions, discharge. TM bilaterally pearly velazquez with light reflex and landmarks intact, no perforation. Eye: Light reflex: symmetrical bilaterally Inspection: Brows and lashes present no ptosis, conjunctiva clear, sclera white, cornea smooth and clear no lesions. Nose: Nose symmetric, no deformity, or lesions, nares patent, mucosa pink,, lesions, polyps, no septal deviation or perforation. Audible nasal congestion noted discharge noted. Sinus : slight tenderness to ethmoid, and maxillary sinus upon palpation, [No] transillumination diffuse red glow noted. Mouth: Throat mucosa [pink, ], no lesions, no exudate. post nasal drip is noted. Uvula midline rises on phonation. + gag reflex. Lips moist and pink. Teeth intact and well maintained no missing or chipped teeth. No foul-smelling odor from breath. Soft and hard palpate intact. Tongue surface smooth, shiny with veins. Neck: right tender high anterior/posterior cervical lymphadenopathy Skin: Inspection: Visible Color: appropriate for ethnicity Moisture: dry to touch throughout Temperature: warm bilaterally Tenderness: no tenderness noted Texture: smooth, Edema: none noted Cardiac: Regular rate, rhythm. No murmur rubs or gallops. Lungs: Inspection +symmetric expansion, Patient sitting supine, respirations full, easy, and unlabored, skin color appropriate for ethnicity, pink, no cyanosis, or lesions noted. Auscultation Lungs clear and equal bilaterally. No stridor. No wheezes, rales or rhonchi. Tracheal/bronchial- loud high pitch. Bronchovesicular moderate pitch. Abdomen: Inspection: Shape: rounded flat Masses: No masses noted bilaterally. Respiratory movement: even and easy RR bilaterally, unlabored, no acute distress. Auscultation: Bowel sounds: normal high pitched, gurgling, occurring irregular 5-30 seconds. Palpation: Light and Deep: abdomen soft, no guarding, rigidity, large masses, or tenderness noted. Diagnostic: none noted Plan/Impression: Symptoms consistent with acute rhinosinusitis, but reviewed other potential etiologies RX Augmentin Instructed to push fluids, rest, and to use appropriate over the counter medicati (more content not included)... Normal [facility] CORONAVIRUSon 02-01-20 21 PERFORMED BY [facility] Comment on above: Performed By: #### C COVID #### Testing [place] [address] SARS-CoV-2 (COVID-19) RNA DEEPIKA+probe Ql (Unsp spec) Not detected Normal NOT DETECTED [facility] Comment on above: Result Comment: Nega tive results do not preclude SARS-CoV-2 infection and should not be used as the sole basis for treatment or other patient management decisions. Optimum specimen types and timing for peak viral levels during infections caused by SARS-CoV-2 has not been determined. The possibility of a false negative result should especially be considered if the patient's recent exposures or clinical presentation suggest that SARS-CoV-2 infection is probable, and diagnostic tests for other causes of illness (e.g., other respiratory illness) are negative. Collection of a new specimen and re-testing may be necessary if the patient is critically ill or clinically deteriorating. Performed By: #### C COVID #### [place] [address] NARRATIVE This test was performed using isothermal DEEPIKA and has been approved as Emergency Use Authorization (EUA) for the qualitative detection [id number] nucleic acid. [facility] Comment on above: Performed By: #### C COVID #### [place] [address] SARS-COV-2 RAPIDon 1 [employer] Cyto stain Nom (Cvx/Vag) [ID] [facility] NARRATIVE -1 This test was performed using isothermal DEEPIKA and has been approved as Emergency Use Authorization (EUA) for the qualitative detection [id number] nucleic acid. [facility] SARS-CoV-2 (COVID-19) RNA DEEPIKA+probe Ql (Unsp spec) Not detected NOT DETECTED [facility] Comment on above: Negative results do not preclude SARS-CoV-2 infection and should not be used as the sole basis for treatment or other patient management decisions. Optimum specimen types and timing for peak viral levels during infections caused by SARS-CoV-2 has not been determined. The possibility of a false negative result should especially be considered if the patient's recent exposures or clinical presentation suggest that SARS-CoV-2 infection is probable, and diagnostic tests for other causes of illness (e.g., other respiratory illness) are negative. Collection of a new specimen and re-testing may be necessary if the patient is critically ill or clinically deteriorating. [facility] CORONAVIRUS 19, DEEPIKA [place] n 01-11-2020 COVID-19,DEEPIKA Not Detected Normal Not Detected [facility] Comment on above: Result Comment: This nucleic acid amplification test was developed and its performance characteristics determined by [employer]. Nucleic acid amplification tests include PCR and TMA. This test has not been FDA cleared or approved. This test has been authorized by FDA under an Emergency Use Authorization (EUA). This test is only authorized for the duration of time the declaration that circumstances exist justifying the authorization of the emergency use of in vitro diagnostic tests for detection of SARS-CoV-2 virus and/or diagnosis of COVID-19 infection under section 564(b)(1) of the Act, 21 U.S.C. 360bbb-3(b) (1), unless the authorization is terminated or revoked sooner. When diagnostic testing is negative, the possibility of a false negative result should be considered in the context of a patient's recent exposures and the presence of clinical signs and symptoms consistent with COVID-19. An individual without symptoms of COVID-19 and who is not shedding SARS-CoV-2 virus would expect to have a negative (not detected) result in this assay. Performed By: #### L 3400.2408 #### [employer] (refer to report for specific site) refer to report for address and phone number CBC W/Diff, Automatedon 01-29 Absolute Neut 3.5 X10 3/uL Normal 2.0-7.7 [facility] Comment on above: Performed By: #### L 100.0100 #### [facility] [address] [place], [place], [address] Basophils/100 WBC (Bld) 0.7 % Normal 0-1 [facility] Comment on above: Performed By: #### L 100.0100 #### [facility] [address] [place], [address] Eosinophils/100 WBC (Bld) 1.4 % Normal 0-5 [facility] Comment on above: Performed By: #### L 100.0100 #### [facility] [address] [place], [address] Erythrocyte distribution width (RBC) [Ratio] 13.1 % Normal 11.6-14.6 [facility] Comment on above: Performed By: #### L 100.0100 #### [facility] [address] [place], [address] Hematocrit (Bld) [Volume fraction] 46.3 % Normal 40-54 [facility] Comment on above: Performed By: #### L 100.0100 #### [facility] [address] [place], [address] Hemoglobin (Bld) [Mass/Vol] 15.1 g/dL Normal 13.0-16.5 [facility] Comment on above: Performed By: #### L 100.0100 #### [facility] [address] [place], [address] IM GRAN % 0.400 % Normal 0.0-0.9 [facility] Comment on above: Result Comment: IG% - Immature Granulocytes (promyelocytes, myelocytes and metamyelocytes) > 1% indicates that a LEFT SHIFT is Present. Performed By: #### L 100.0100 #### [facility] [address] [place], [address] Lymphocytes (Bld) [#/Vol] 1.33 X10 3/uL Normal 0.83-4.51 [facility] Comment on above: Performed By: #### L 100.0100 #### [facility] [address] [place], [address] Lymphocytes/100 WBC (Bld) 23.7 % Normal 19-41 [facility] Comment on above: Performed By: #### L 100.0100 #### [facility] [address] [place], [address] MCH (RBC) [Entitic mass] 29.5 pg Normal 27.0-32.0 [facility] Comment on above: Performed By: #### L 100.0100 #### [facility] [address] [place], [address] MCHC (RBC) [Mass/Vol] 32.6 g/dL Normal 32-36 [facility] Comment on above: Performed By: #### L 100.0100 #### [facility] [address] [place], [address] MCV (RBC) [Entitic vol] 90.6 fL Normal 80-94 [facility] Comment on above: Performed By: #### L 100.0100 #### [facility] [address] [place], [address] Monocytes/100 WBC (Bld) 12.1 % High 0-10 [facility] Comment on above: Performed By: #### L 100.0100 #### [facility] [address] [place], [address] Neutrophils/100 WBC (Bld) 61.7 % Normal 47-70 [facility] Comment on above: Performed By: #### L 100.0100 #### [facility] [address] [place], [address] NRBC, FLAGGED 0 % Normal 0-5 [facility] Comment on above: Performed By: #### L 100.0100 #### [facility] [address] [place], [address] Platelet mean volume (Bld) [Entitic vol] 9.3 fL Normal 6.2-12.0 [facility] Comment on above: Performed By: #### L 100.0100 #### [facility] [address] [place], [address] Platelets (Bld) [#/Vol] 314 10*3/uL Normal 150-450 [facility] Comment on above: Performed By: #### L 100.0100 #### [facility] [address] [place], [address] RBC (Bld) [#/Vol] 5.11 M/mm3 Normal 4.6-6.2 [facility] [facility] Comment on above: Performed By: #### L 100.0100 #### [facility] [address] [place], [address] RDW SD 42.7 fl Normal 35.1-43.9 [facility] Comment on above: Performed By: #### L 100.0100 #### [facility] [address] [place], [address] WBC (Bld) [#/Vol] 5.6 10*3/uL Normal 4.4-11.0 [facility] Comment on above: Performed By: #### L 100.0100 #### [facility] [address] [place], [address] Comprehensive Metabolic Prof [facility] 02-23-2019 Albumin [Mass/Vol] 3.8 g/dL Normal 3.2-5.0 [facility] Comment on above: Performed By: #### L 500.4050 #### [facility] [address] [place], [address] Albumin/Globulin [Mass ratio] 1.1 {ratio} Normal 0.9-2.4 [facility] Comment on above: Performed By: #### L 500.4050 #### [facility] [address] [place], [address] ALK P 43 U/L Low 45-117 [facility] Comment on above: Performed By: #### L [id number] #### [facility] [address] [place], [address] ALT [Catalytic activity/Vol] 24 U/L Normal 16-61 [facility] Comment on above: Performed By: #### L 500.4050 #### [facility] [address] [place], [address] AST [Catalytic activity/Vol] 13 U/L Low 15-37 [facility] Comment on above: Performed By: #### L [id number] #### [facility] [address] [place], [address] Bilirubin [Mass/Vol] 0.60 mg/dL Normal 0.20-1.00 [facility] Comment on above: Performed By: #### L [id number] #### [facility] [address] [place], [address] Calcium [Mass/Vol] 8.6 mg/dL Normal 8.5-10.1 [facility] Comment on above: Performed By: #### L [id number] #### [facility] [address] [place], [address] Chloride [Moles/Vol] 112 mmol/L High 98-107 [facility] Comment on above: Performed By: #### L [id number] #### [facility] [address] [place], [address] CO2 [Moles/Vol] 25.0 mmol/L Normal 21.0-32.0 [facility] Comment on above: Performed By: #### L [id number] #### [facility] [address] [place], [address] Creatinine [Mass/Vol] 0.80 mg/dL Normal 0.70-1.30 [facility] Comment on above: Result Comment: The validity of the calculated GFR AND GFRAA in patients over 70 years has not been determined. Clinical correlation is essential. Performed By: #### L [id number] #### [facility] [address] [place], [address] EST GFR - AA 132 mL/min Normal >60 [facility] Comment on above: Result Comment: Afri can Israeli GFR Calc Performed By: #### L [id number] #### [facility] [address] [place], [address] Estimated CRCL 122.60 ml/min Normal [facility] Comment on above: Performed By: #### L 500.4050 #### [facility] [address] [place], [address] GAP 6 Normal 5-15 [facility] Comment on above: Performed By: #### L [id number] #### [facility] [address] [place], [address] GFR/1.73 sq M predicted among non-blacks MDRD (S/P/Bld) [Vol rate/Area] 109 mL/min/{1.73_m2} Normal >60 [facility] Comment on above: Result Comment: Non- GFR Calc Performed By: #### L [id number] #### [facility] [address] [place], [address] Globulin (S) [Mass/Vol] 3.5 g/dL Normal 2.2-4.2 [facility] Comment on above: Performed By: #### L [id number] #### [facility] [address] [place], [address] Glucose [Mass/Vol] 91 mg/dL Normal 74-106 [facility] Comment on above: Result Comment: Veronique suarez note revised GLUCOSE reference range effective 2017. Performed By: #### L 500.4050 #### [facility] [address] [place], [address] Potassium [Moles/Vol] 4.1 mmol/L Normal 3.5-5.1 [facility] Comment on above: Performed By: #### L 500.4050 #### [facility] [address] [place], [address] Sodium [Moles/Vol] 143 mmol/L Normal 136-145 [facility] Comment on above: Performed By: #### L [id number] #### [facility] [address] [place], [address] T PROT 7.3 g/dL Normal 6.4-8.2 [facility] Comment on above: Performed By: #### L [id number] #### [facility] [address] [place], [address] Urea nitrogen [Mass/Vol] 28.7 RATIO High 10-20 [facility] Comment on above: Performed By: #### L [id number] #### [facility] [address] [place], [address] Urea nitrogen [Mass/Vol] 23 mg/dL High 7-18 [facility] Comment on above: Performed By: #### L [id number] #### [facility] [address] [place], [address] Emergency Department Summary on 02-23-2019 Emergency Department Summary [facility] Medical Records Department [address] [place] [address] Emergency Department Summary 02/23/19 0654 MR#: [id number] Acct: [id number] Name: TRE MENDOZA Rep #: [id number] : 1970 48 From: Saran Naranjo MD PCP: Status: PRE ER History of Present Illness Chief Complaint: Hypertension Narrative: Patient is a 48-year-old male who presents with elevated blood pressure. He recently used a testosterone injection that you got from a friend, this was not prescribed to him. He used this 4 days ago. He has had hot flashes since that time. He saw his dentist the next day, 2 days ago. His blood pressure was noted to be elevated. He denies chest pain, shortness of breath, lightheadedness, headache. He states that if he had not gone to the dentist he would not have even known that his blood pressure was high. He does report a family history of coronary disease although he was evaluated with an echocardiogram and EKG earlier this year. Past Medical History Past Medical History: None Smoking Status: Never smoker Review of Systems All systems negative except as indicated General: Denies: Fever Cardiovascular: Denies: Chest pain Respiratory: Denies: Dyspnea Gastrointestinal: Denies: Nausea, Vomiting Skin: Denies: Rash Neurological: Denies: Headache Physical Exam Vital Signs/Narrative: Vital Signs 02/23/19 05:51 97.6 F L 90 18 177/112 H 97 Inital Vital Signs reviewed: Yes General: Well nourished, Well developed Head: Normocephalic, Atraumatic Eyes: EOMI ENT: Moist mucous membranes Neck: Supple Cardiovascular: Regular rate, Regular rhythm Respiratory: No distress, CTA bilaterally Abdomen: Soft, Nontender Skin: Normal color Neurological: Alert, - - No focal or lateralizing neurological deficits Psychological: Normal affect Diagnostic/Tx/Re-delta l Laboratory Results WBC 5.6 RBC 5.11 Hgb 15.1 Hct 46.3 MCV 90.6 - Medical Decision Making CBC and CMP were ordered off of nursing protocol and are normal. EKG shows normal sinus rhythm at a rate of 78 with no acute ischemic changes. Patient presents with asymptomatic hypertension which is likely related to the testosterone. I do not believe any further emergent work-up or initiation of medications is indicated at this time. I did advise that he follow-up with his primary care physician for a blood pressure recheck. He does understand to return however if he develops symptoms. He was instructed on signs and symptoms to monitor for. He was discharged. ED Disposition - Plan for ED Patient: Disposition: Home or Assisted Living Diagnosis: Asymptomatic hypertension Instructions: HYPERTENSION, To Be Confirmed Referrals: Rene Mina MD [STAFF PHYSICIAN] - What to do if you have Problems For any increased pain, shortness of breath, bleeding, nausea or vomiting, chest pain, or any unexpected problems, contact your Primary Care Provider. Call [facility] ([phone]) or report to the closest Emergency Room. Call 911 if necessary. 02/23/19704 Date Saran Pateligner Signature (If Indicated): Date CC: Mady Washington [facility] POCT URINALYSIS DIPSTICK AUT OMATED W/O SCOPon 03-06-2018 Amorphous sediment LM Ql (Urine sed) Invalid Interpretation Code [facility] Work Phone: Appearance Nom (Body fld) clear Invalid Interpretation Code [facility] Work Phone: Bacteria LM Ql (Urine sed) Invalid Interpretation Code [facility] Work Phone: Bilirubin Ql (U) small Invalid Interpretation Code [facility] Work Phone: Casts LM.LPF #/area (Urine sed) Invalid Interpretation Code [facility] Work Phone: Color Nom (U) dark yellow Invalid Interpretation Code [facility] Work Phone: Crystals LM Nom (Urine sed) Invalid Interpretation Code [facility] Work Phone: Epithelial cells.squamous LM.HPF #/area (Urine sed) Invalid Interpretation Code [facility] Work Phone: Flow cytometry specialist review Interp Vlad (Unsp spec) Invalid Interpretation Code [facility] Work Phone: Ketones mass conc Negative Invalid Interpretation Code mg/dL [facility] Work Phone: Leukocyte esterase Qn (U) Invalid Interpretation Code [facility] Work Phone: Leukocyte esterase Test strip Ql (U) Negative Invalid Interpretation Code [facility] Work Phone: Nitrite Ql (U) Negative Invalid Interpretation Code [facility] Work Phone: pH (U) 5.5 Invalid Interpretation Code [facility] Work Phone: POCT GLUCOSE, URINE Negative Invalid Interpretation Code mg/dL [facility] Work Phone: Protein Ql (U) 30 mg/dL Invalid Interpretation Code [facility] Work Phone: RBC LM.HPF #/area (Urine sed) Invalid Interpretation Code [facility] Work Phone: RBC Ql (U) Negative Invalid Interpretation Code [facility] Work Phone: Specific gravity Relative Density (U) >=1.030 Invalid Interpretation Code [facility] Work Phone: Transitional cells LM Ql (Urine sed) Invalid Interpretation Code [facility] Work Phone: Urobilinogen mass conc (U) 1.0 Invalid Interpretation Code [facility] Work Phone: WBC LM.HPF #/area (Urine sed) Invalid Interpretation Code [facility] Work Phone: URINE CULTUREon 03-06-2018 Bacteria identified Cx Nom (U) SPECIMEN DESCRIPTION URINE CLEAN CATCHUA DIPSTICK LEUKOCYTE POSITIVE TRACE * Result Note: LEUKOCYTE NEGATIVE *CULTURE NO GROWTH 1 DAY * Result Note: Testing performed at [place], [place] [address] *REPORT STATUS PENDING Normal [facility] Comment on above: Performed By: #### A UROR ####[place] [address] Vital Signs Date Time Vital Sign Value Performing Clinician Facility 09-21-2024 14:21-0400 Body mass index (BMI) [Ratio] 27.2 kg/m2 Suzanne Older [employer] Work Phone: [facility] 09-21-2024 14:21-0400 Body weight 88.45 kg Suzanne Older [employer] Work Phone: [facility] 09-21-2024 14:21-0400 Diastolic blood pressure 82 mm[Hg] Suzanne Older [employer] Work Phone: [facility] 09-21-2024 14:21-0400 Heart rate 88 /min Suzanne Older [employer] Work Phone: [facility] 09-21-2024 14:21-0400 Respiratory rate 16 /min Suzanne Older [employer] Work Phone: [facility] 09-21-2024 14:21-0400 SaO2% (BldA) [Mass fraction] 97 % Suzanne Older [employer] Work Phone: [facility] 09-21-2024 14:21-0400 Systolic blood pressure 118 mm[Hg] Suzanne Older [employer] Work Phone: [facility] 01-25-2024 16:27-0400 Body height 180.3 cm Karime Reagan [employer] Work Phone: [facility] 01-25-2024 16:27-0400 Body mass index (BMI) [Ratio] 27.06 kg/m2 Karime Reagan [employer] Work Phone: [facility] 01-25-2024 16:27-0400 Body weight 88 kg Karime Reagan [employer] Work Phone: [facility] 01-25-2024 16:27-0400 Diastolic blood pressure 81 mm[Hg] Karime Reagan [employer] Work Phone: [facility] 01-25-2024 16:27-0400 Heart rate 91 /min Karime Reagan [employer] Work Phone: [facility] 01-25-2024 16:27-0400 Respiratory rate 16 /min Karime Reagan [employer] Work Phone: [facility] 01-25-2024 16:27-0400 SaO2% (BldA) [Mass fraction] 97 % Karime Reagan [employer] Work Phone: [facility] 01-25-2024 16:27-0400 Systolic blood pressure 138 mm[Hg] Karime Reagan [employer] Work Phone: [facility] 12-30-2023 08:27-0400 Body height 180.3 cm Vani Finelli DO Work Phone: [facility] 12-30-2023 08:27-0400 Body mass index (BMI) [Ratio] 26.78 kg/m2 Vani Finelli DO Work Phone: [facility] 12-30-2023 08:27-0400 Body temperature 97.2 [degF] Vani Finelli DO Work Phone: [facility] 12-30-2023 08:27-0400 Body weight 87.09 kg Vani Finelli DO Work Phone: [facility] 12-30-2023 08:27-0400 Diastolic blood pressure 93 mm[Hg] Vani Finelli DO Work Phone: [facility] 12-30-2023 08:27-0400 Heart rate 85 /min Vani Finelli DO Work Phone: [facility] 12-30-2023 08:27-0400 SaO2% (BldA) [Mass fraction] 99 % Vani Finelli DO Work Phone: [facility] 12-30-2023 08:27-0400 Systolic blood pressure 145 mm[Hg] Vani Finelli DO Work Phone: [facility] 12-07-2023 13:37-0400 Body mass index (BMI) [Ratio] 26.34 kg/m2 Suzanne Older [employer] Work Phone: [facility] 12-07-2023 13:37-0400 Body weight 88.1 kg Suzanne Older [employer] Work Phone: [facility] 12-07-2023 13:37-0400 Diastolic blood pressure 70 mm[Hg] Suzanne Older [employer] Work Phone: [facility] 12-07-2023 13:37-0400 Heart rate 74 /min Suzanne Older [employer] Work Phone: [facility] 12-07-2023 13:37-0400 Respiratory rate 16 /min Suzanne Older [employer] Work Phone: [facility] 12-07-2023 13:37-0400 SaO2% (BldA) [Mass fraction] 98 % Suzanne Older [employer] Work Phone: [facility] 12-07-2023 13:37-0400 Systolic blood pressure 118 mm[Hg] Suzanne Older [employer] Work Phone: [facility] 10-26-2023 15:12-0400 Body mass index (BMI) [Ratio] 26.18 kg/m2 Suzanne Older [employer] Work Phone: [facility] 10-26-2023 15:12-0400 Body weight 87.54 kg Suzanne Older [employer] Work Phone: [facility] 10-26-2023 15:12-0400 Diastolic blood pressure 72 mm[Hg] Suzanne Older [employer] Work Phone: [facility] 10-26-2023 15:12-0400 Heart rate 74 /min Suzanne Older [employer] Work Phone: [facility] 10-26-2023 15:12-0400 Respiratory rate 16 /min Suzanne Older [employer] Work Phone: [facility] 10-26-2023 15:12-0400 SaO2% (BldA) [Mass fraction] 97 % Suzanne Older [employer] Work Phone: [facility] 10-26-2023 15:12-0400 Systolic blood pressure 104 mm[Hg] Suzanne Older [employer] Work Phone: [facility] 07-20-2023 15:42-0400 Body mass index (BMI) [Ratio] 28.21 kg/m2 Suzanne Older [employer] Work Phone: [facility] 07-20-2023 15:42-0400 Body weight 94.35 kg Suzanne Older [employer] Work Phone: [facility] 07-20-2023 15:42-0400 Diastolic blood pressure 74 mm[Hg] Suzanne Older [employer] Work Phone: [facility] 07-20-2023 15:42-0400 Heart rate 80 /min Suzanne Older [employer] Work Phone: [facility] 07-20-2023 15:42-0400 Respiratory rate 16 /min Suzanne Older [employer] Work Phone: [facility] 07-20-2023 15:42-0400 SaO2% (BldA) [Mass fraction] 96 % Suzanne Older [employer] Work Phone: [facility] 07-20-2023 15:42-0400 Systolic blood pressure 118 mm[Hg] Suzanne Older [employer] Work Phone: [facility] 11-03-2022 17:58-0400 Body temperature 97 [degF] Chet Astudillo MD Work Phone: [facility] 11-03-2022 17:58-0400 Body weight 100.25 kg Chet Astudillo MD Work Phone: [facility] 11-03-2022 17:58-0400 Diastolic blood pressure 90 mm[Hg] Chet Astudillo MD Work Phone: [facility] 11-03-2022 17:58-0400 Heart rate 71 /min Chet Astudillo MD Work Phone: [facility] 11-03-2022 17:58-0400 Respiratory rate 18 /min Chet Astudillo MD Work Phone: [facility] 11-03-2022 17:58-0400 SaO2% (BldA) [Mass fraction] 99 % Chet Astudillo MD Work Phone: [facility] 11-03-2022 17:58-0400 Systolic blood pressure 142 mm[Hg] Chet Astudillo MD Work Phone: [facility] 06-30-2022 14:35-0400 Body temperature 98.01 [degF] Suzanne Older [employer] Work Phone: [facility] 06-30-2022 14:35-0400 Body weight 97.52 kg Suzanne Older [employer] Work Phone: [facility] 06-30-2022 14:35-0400 Diastolic blood pressure 90 mm[Hg] Suzanne Older [employer] Work Phone: [facility] 06-30-2022 14:35-0400 Heart rate 84 /min Suzanne Older [employer] Work Phone: [facility] 06-30-2022 14:35-0400 Respiratory rate 16 /min Suzanne Older [employer] Work Phone: [facility] 06-30-2022 14:35-0400 SaO2% (BldA) [Mass fraction] 98 % Suzanne Older [employer] Work Phone: [facility] 06-30-2022 14:35-0400 Systolic blood pressure 128 mm[Hg] Suzanne Older [employer] Work Phone: [facility] 01-03-2022 14:38-0400 Body height 182.9 cm Rene Mina MD Work Phone: [facility] 01-03-2022 14:38-0400 Body temperature 98.2 [degF] Rene Mina MD Work Phone: [facility] 01-03-2022 14:38-0400 Body weight 94.35 kg Rene Mina MD Work Phone: [facility] 01-03-2022 14:38-0400 Diastolic blood pressure 66 mm[Hg] Rene Mina MD Work Phone: [facility] 01-03-2022 14:38-0400 Heart rate 84 /min Rene Mina MD Work Phone: [facility] 01-03-2022 14:38-0400 Respiratory rate 12 /min Rene Mina MD Work Phone: [facility] 01-03-2022 14:38-0400 SaO2% (BldA) [Mass fraction] 99 % Rene Mina MD Work Phone: [facility] 01-03-2022 14:38-0400 Systolic blood pressure 122 mm[Hg] Rene Mina MD Work Phone: [facility] 06-03-2021 18:59-0500 Body height 182.8 cm Text Entry [facility] 06-03-2021 18:59-0500 Body temperature 97.34 [degF] Text Entry [facility] 06-03-2021 18:59-0500 Diastolic blood pressure 88 mm[Hg] Text Entry [facility] 06-03-2021 18:59-0500 Heart rate 70 /min Text Entry [facility] 06-03-2021 18:59-0500 Respiratory rate 16 /min Text Entry [facility] 06-03-2021 18:59-0500 SaO2% (BldA) [Mass fraction] 97 % Text Entry [facility] 06-03-2021 18:59-0500 Systolic blood pressure 159 mm[Hg] Text Entry [facility] 01-31-2021 16:41-0400 Body height 182.9 cm Lexis FREEMAN Work Phone: [employer] 01-31-2021 16:41-0400 Body mass index (BMI) [Ratio] 30.52 kg/m2 Lexis FREEMAN Work Phone: [facility] 01-31-2021 16:41-0400 Body temperature 97.59 [degF] Leixs Boone [employer] Work Phone: [facility] 01-31-2021 16:41-0400 Body weight 102.06 kg Lexis Boone [employer] Work Phone: [facility] 01-31-2021 16:41-0400 Diastolic blood pressure 95 mm[Hg] Lexis Boone [employer] Work Phone: [facility] 01-31-2021 16:41-0400 Heart rate 75 /min Lexis Boone [employer] Work Phone: [facility] 01-31-2021 16:41-0400 Respiratory rate 16 /min Lexis Boone [employer] Work Phone: [facility] 01-31-2021 16:41-0400 SaO2% (BldA) [Mass fraction] 99 % Lexis Boone [employer] Work Phone: [facility] 01-31-2021 16:41-0400 Systolic blood pressure 148 mm[Hg] Lexis Boone [employer] Work Phone: [facility] 03-06-2018 19:40-0500 BP Diastolic 101 mm[Hg] [facility] Work Phone: 03-06-2018 19:40-0500 BP Systolic 151 mm[Hg] [facility] Work Phone: 03-06-2018 19:40-0500 Pulse (Heart Rate) 75 /min [facility] Work Phone: 03-06-2018 19:39-0500 BMI (Body Mass Index) 30.13 kg/m2 [facility] Work Phone: 03-06-2018 19:39-0500 Body Temperature 98.49 [degF] [facility] Work Phone: 03-06-2018 19:39-0500 Height 177.8 cm [facility] Work Phone: 03-06-2018 19:39-0500 Pulse Oximetry 96 % [facility] Work Phone: 03-06-2018 19:39-0500 Respiratory Rate 17 /min [facility] Work Phone: 03-06-2018 19:39-0500 Weight 95.25 kg [facility] Work Phone: Encounters Encounter Date Encounter Type Care Provider Facility Start: 11-12-2024 End: 11-12-2024 ambulatory SUZANNE OLDER Facility:[facility] Start: 09-21-2024 End: 09-21-2024 Periodic preventive med est patient 40-64yrs Suzanne Older [employer] Work Phone: [facility] [place] Comment on above: Annual physical exam (Primary Dx); Essential hypertension; Mixed hyperlipidemia; Hydrocele, unspecified hydrocele type; Bilateral varicoceles; Screening for depression; Encounter for screening examination for other mental health and behavioral disorders Start: 09-21-2024 End: 09-21-2024 ambulatory SUZANNE OLDER Facility:[facility] Start: 09-21-2024 End: 09-21-2024 Patient encounter procedure Suzanne Older [employer] Work Phone: [facility] Work Phone: Start: 09-16-2024 End: 09-19-2024 ambulatory Suzanne Older [employer] Work Phone: [facility] [place] Start: 09-16-2024 End: 09-19-2024 Patient encounter procedure Suzanne Older [employer] Work Phone: [facility] [place] Comment on above: Appointment Start: 09-06-2024 End: 09-09-2024 ambulatory Suzanne Older [employer] Work Phone: Internal Medicine [facility] Start: 04-20-2024 End: 04-20-2024 Refill Suzanne Older [employer] Work Phone: [facility] [place] Comment on above: Refill Request Start: 01-25-2024 End: 01-25-2024 ambulatory KARIME HART Facility:[facility] Start: 01-25-2024 End: 01-25-2024 Patient encounter procedure Karime Hart [employer] Work Phone: General Surgery Comment on above: Right inguinal herni a (Primary Dx); Left inguinal hernia Start: 01-11-2024 End: 01-11-2024 ambulatory VANI ZAMBRANO Facility:[facility] Start: 01-01-2024 End: 01-01-2024 Telephone encounter Antonella Mcnair PA-C Work Phone: [place] Provider Adult Start: 12-31-2023 End: 12-31-2023 ambulatory [facility] Facility:[facility] Start: 12-30-2023 End: 12-30-2023 ambulatory SUZANNE OLDER Facility:[facility] Start: 12-30-2023 End: 12-30-2023 Office consultation new/estab patient 30 min Vani Zambrano DO Work Phone: General Surgery Comment on above: Right inguinal herni a (Primary Dx); Right groin mass Start: 12-29-2023 End: 12-29-2023 ambulatory SUZANNE OLDER Facility:[facility] Start: 12-29-2023 End: 12-29-2023 Subsequent hospital visit by physician Lolita [facility] (I-Stat) Work Phone: Cat Scan Comment on above: Right groin mass [R1 9.09] Start: 12-23-2023 End: 12-23-2023 ambulatory Suzanne Older STAFFING MGR.DRAG DOWN Work Phone: Internal Medicine [place] Comment on above: Right groin mass (Pr imary Dx); Localized swelling, mass and lump, trunk; Hydrocele, unspecified hydrocele type Start: 12-23-2023 End: 12-23-2023 Telemedicine consultation with patient Suzanne Agustin GUTIERREZ.GISELA Work Phone: Internal Medicine [place] Start: 12-14-2023 End: 12-16-2023 ambulatory Suzanne Velez APRN.DRAG DOWN Work Phone: Internal Medicine [place] Comment on above: Ultrasound results. Start: 12-10-2023 End: 12-10-2023 [facility] Facility:[facility] Start: 12-10-2023 End: 12-10-2023 Subsequent hospital visit by physician [facility] Work Phone: Radiology Comment on above: Right testicular georges n [N50.811] Start: 12-07-2023 End: 12-07-2023 Patient encounter procedure Suzanne Velez APRN.DRAG DOWN Work Phone: Internal Medicine [place] Comment on above: Essential hypertensi on (Primary Dx); Right testicular pain; Right groin mass Start: 12-07-2023 End: 12-07-2023 [facility] Facility:[facility] Start: 10-26-2023 End: 10-26-2023 Patient encounter procedure Suzanne Velez APRN.GISELA Work Phone: Internal Medicine [place] Comment on above: Essential hypertensi on (Primary Dx); Class 1 obesity with serious comorbidity and body mass index (BMI) of 30.0 to 30.9 in adult, unspecified obesity type; Weight loss counseling, encounter for Start: 07-20-2023 End: 07-20-2023 Patient encounter procedure Suzanne Velez APRN.GISELA Work Phone: Internal Medicine [place] Comment on above: Class 1 obesity with serious comorbidity and body mass index (BMI) of 30.0 to 30.9 in adult, unspecified obesity type (Primary Dx); Weight loss counseling, encounter for; Essential hypertension; Mixed hyperlipidemia Start: 07-16-2023 ambulatory Suzanne Velez APRN .DRAG DOWN Work Phone: Internal Medicine [place] Comment on above: Test results Start: 07-04-2023 ambulatory Suzanne Older STAFFING MGR .DRAG DOWN Work Phone: Internal Medicine [place] Comment on above: Blood work Start: 06-18-2023 Telephone encounter Rene jain MD Work Phone: Internal Medicine [place] Comment on above: Insurance Authorizat ion Start: 06-16-2023 Refill Suzanne Older STAFFING MGR .DRAG DOWN Work Phone: Internal Medicine [place] Comment on above: Refill Request Start: 06-06-2023 ambulatory Suzanne Older STAFFING MGR .DRAG DOWN Work Phone: Internal Medicine [place] Comment on above: [employer] Start: 05-19-2023 ambulatory Rene Koehler Work Phone: Internal Medicine [facility] [place] Start: 02-25-2023 ambulatory Chet orr MD Work Phone: [facility] Comment on above: Weight loss Start: 01-25-2023 End: 01-25-2023 ambulatory [facility] Start: 01-25-2023 End: 01-25-2023 Subsequent hospital visit by physician Ilan X-Ray 1 [facility] Comment on above: Pain Start: 11-03-2022 End: 11-03-2022 Patient encounter procedure Chet Astudillo MD Work Phone: [place] [facility] Comment on above: Infected abrasion of left ankle, initial encounter (Primary Dx) Start: 10-30-2022 Refill Rene Koehler Work Phone: [facility] Comment on above: Refill Request Start: 07-15-2022 Telephone encounter Suzanne Older STAFFING MGR.DRAG DOWN Work Phone: Internal Medicine [place] Comment on above: Patient Question Start: 06-30-2022 End: 06-30-2022 Patient encounter procedure Suzanne Older STAFFING MGR.DRAG DOWN Work Phone: Internal Medicine [place] Comment on above: Essential hypertensi on (Primary Dx); Mixed hyperlipidemia; Palpitations; Increased frequency of urination; Exercise-induced leg fatigue Start: 01-03-2022 End: 01-03-2022 Patient encounter procedure Rene Mina MD Work Phone: Internal Medicine [place] Comment on above: Other fatigue (Prima ry Dx); Need for influenza vaccination; Vitamin B12 deficiency Start: 12-31-2021 Refill Suzanne Velez APRN, .CNP Work Phone: Internal Medicine [place] Comment on above: Refill Request Start: 12-27-2021 Refill Rene Koehler Work Phone: Internal Medicine [place] Comment on above: Refill Request Start: 12-04-2021 ambulatory Rene Koehler Work Phone: Internal Medicine [place] Comment on above: Low energy low sex d rive Start: 10-01-2021 End: 10-01-2021 Patient encounter procedure Mike Carlos MD Work Phone: Orthopaedics Comment on above: Lateral epicondyliti s of right elbow (Primary Dx); Right elbow pain Start: 10-01-2021 End: 10-01-2021 Subsequent hospital visit by physician [facility] Cassie Tran Work Phone: Radiology Comment on above: Right elbow pain [M2 5.521] Start: 09-27-2021 Refill Rene Koehler Work Phone: [facility] [place] Comment on above: Refill Request Start: 09-24-2021 Orders Only Mike Carlos MD Work Phone: Orthopaedics Comment on above: Right elbow pain (Pr imary Dx) Start: 08-21-2021 Telephone encounter Suzanne Velez APRN.CNP Work Phone: [facility] [place] Comment on above: Results Start: 06-20-2021 Refill Suzanne Velez APRN, .CNP Work Phone: Internal Medicine [place] Comment on above: Refill Request Start: 06-03-2021 End: 06-03-2021 Emergency department patient visit Diamond Kilpatrick [facility] Start: 01-31-2021 End: 01-31-2021 Office outpatient visit 15 minutes Lexis Boone STAFFING MGR-DRAG DOWN Work Phone: [facility] Comment on above: Viral URI with cough (Primary Dx) Start: 03-06-2018 End: 03-06-2018 Office outpatient new 20 minutes Sera Montalvo Work Phone: [facility] Comment on above: Acute bilateral low back pain without sciatica (Primary Dx); Flank pain; Elevated blood-pressure reading without diagnosis of hypertension Start: 03-06-2018 Patient encounter procedure [facility] Tegan [facility] Procedures Date Procedure Procedure Detail Performing Clinician Start: 09-21-2024 Adult depression scr eening assessment Suzanne Older STAFFING MGR.DRAG DOWN Work Phone: Start: 12-29-2023 Ct pelvis w/o contra st material Suzanne Older STAFFING MGR.DRAG DOWN Work Phone: Start: 12-07-2023 Urnls dip stick/tabl et rgnt auto w/o microscopy Suzanne Older STAFFING MGR.DRAG DOWN Work Phone: Start: 07-16-2023 Lipid 1996 panel - S gege or Plasma Suzanne Older STAFFING MGR.DRAG DOWN Work Phone: Start: 01-25-2023 XR ANKLE RIGHT 3+ VIEWS MYESHA MARY Start: 01-25-2023 Radex ankle complete minimum 3 views Generic Provider Scanning Start: 07-12-2022 Lipid 1996 panel - S gege or Plasma Chet Astudillo MD Work Phone: Start: 10-01-2021 Radex elbow 2 views Gunnar Carlos MD Work Phone: Start: 08-20-2021 Adult depression scr eening assessment Suzanne Older STAFFING MGR.DRAG DOWN Work Phone: Start: 02-11-2021 Colonoscopy Suzanne Older STAFFING MGR.DRAG DOWN Work Phone: Start: 01-31-2021 SARS-COV-2 RAPID Antionette Boone STAFFING MGR-DRAG DOWN Work Phone: Start: 02-25-2019 12 lead ECG Start: 03-06-2018 End: 03-06-2018 POCT URINALYSIS DIPSTICK AUTOMATED W/O JENNIFER Montalvo Work Phone: Plan of Treatment Date Care Activity Detail Author Start: 08-21-2031 DTaP/Tdap/Td Vaccine s (2 - Td or Tdap) DTaP/Tdap/Td Vaccines (2 - Td or Tdap) [facility] Start: 08-21-2031 Urine microalbumin profile [facility] Start: 02-11-2031 Colonoscopy COLONOSCOPY [facility] Start: 02-11-2031 COLORECTAL CANCER SCREENING COLORECTAL CANCER SCREENING [facility] Start: 02-11-2031 Screening for malign ant neoplasm of colon [facility] Start: 07-15-2028 Lipid panel Lipid Screening [facility] Start: 07-13-2027 Lipid 1996 panel - S gege or Plasma Lipid Screening [facility] Start: 07-13-2027 Lipid panel Lipid Screening [facility] Start: 07-13-2027 LIPID SCREEN LIPID SCREEN [facility] Start: 08-20-2026 LIPID SCREEN LIPID SCREEN [facility] Start: 07-15-2026 Diabetes Screening Diabetes Screenin g [facility] Start: 09-21-2025 Annual PCP Team Licensed Nursing Assistant tami Disease Visit Annual PCP Team Chronic Disease Visit [facility] Start: 09-21-2025 Anxiety Screening Anxiety Screening [facility] Start: 09-21-2025 Covid-19 Vaccine ( season) Covid-19 Vaccine ( season) [facility] Comment on above: Postponed from 11/28 (Declined at this time) Start: 09-21-2025 Depression Screening Depression Scre ening [facility] Start: 09-21-2025 Hepatitis B Vaccine (1 of 3 - 19+ 3-dose series) Hepatitis B Vaccine (1 of 3 - 19+ 3-dose series) [facility] Comment on above: Postponed from 10/25 (Declined at this time) Start: 09-21-2025 Pneumococcal Vaccine : 50+ (1 of 1 - PCV) Pneumococcal Vaccine: 50+ (1 of 1 - PCV) [facility] Comment on above: Postponed from 10/25 (Declined at this time) Start: 09-21-2025 Shingrix Vaccine (1 of 2) Cruz grix Vaccine (1 of 2) [facility] Comment on above: Postponed from 10/25 (Declined at this time) Start: 07-12-2025 DIABETES SCREEN DIABETES SCREEN [facility] Start: 07-12-2025 Diabetes Screening Diabetes Screenin g [facility] Start: 03-20-2025 End: 03-20-2025 Patient encounter procedure 03/20/2025 3:40 PM EST Office Visit Internal Medicine [place] [address] [place], [place] [id number] Rene Mina MD [address] [place] [address] 6 month follow up [facility] [place] Comment on above: 6 month follow up Start: 12-22-2024 Annual PCP Team Licensed Nursing Assistant tami Disease Visit Annual PCP Team Chronic Disease Visit [facility] Start: 12-06-2024 Annual PCP Team Licensed Nursing Assistant tami Disease Visit Annual PCP Team Chronic Disease Visit [facility] Start: 12-06-2024 BP Controlled (<130/80) BP Controlle d (<130/80) [facility] Start: 11-28-2024 Influenza vaccination Influenz a Vaccine (Season Ended) [facility] Start: 11-04-2024 LIPID SCREEN LIPID SCREEN [facility] Start: 2024 Annual PCP Team Licensed Nursing Assistant tami Disease Visit Annual PCP Team Chronic Disease Visit [facility] Start: 2024 BP Controlled (<130/80) BP Controlle d (<130/80) [facility] Start: 09-21-2024 End: 09-21-2024 Patient encounter procedure 09/21/2024 2:20 PM EDT Office Visit Internal Medicine [place] [address] [place] [address] Suzanne Velez APRN.DRAG DOWN [address] [place], [place] [id number] yearly physical [facility] [place] Comment on above: yearly physical Start: 09-19-2024 End: 12-19-2024 CBC panel - Blood by Automated count COMPLETE BLOOD COUNT Lab Routine Essential hypertension Expected: 09/19/2024, Expires: 12/19/2024 [facility] Comment on above: Expected: 09/19/2024 , Expires: 12/19/2024 Start: 09-19-2024 End: 12-19-2024 Comprehensive metabolic 2000 panel - Serum or Plasma COMPREHENSIVE METABOLIC PANEL Lab Routine Mixed hyperlipidemia Essential hypertension Expected: 09/19/2024, Expires: 12/19/2024 [facility] Work Phone: Comment on above: Expected: 09/19/2024 , Expires: 12/19/2024 Start: 09-19-2024 End: 12-19-2024 Lipid 1996 panel - Serum or Plasma LIPID PANEL, FASTING Lab Routine Mixed hyperlipidemia Expected: 09/19/2024, Expires: 12/19/2024 [facility] Comment on above: Expected: 09/19/2024 , Expires: 12/19/2024 Start: 09-06-2024 End: 12-06-2024 Basic metabolic 2000 panel - Serum or Plasma BASIC METABOLIC PANEL Lab Routine Essential hypertension Expected: 09/06/2024, Expires: 12/06/2024 [facility] Work Phone: Comment on above: Expected: 09/06/2024 , Expires: 12/06/2024 Start: 09-06-2024 End: 12-06-2024 Lipid 1996 panel - Serum or Plasma LIPID PANEL, FASTING Lab Routine Mixed hyperlipidemia Expected: 09/06/2024, Expires: 12/06/2024 [facility] Comment on above: Expected: 09/06/2024 , Expires: 12/06/2024 Start: 08-20-2024 DIABETES SCREEN DIABETES SCREEN [facility] Start: 07-19-2024 Annual PCP Team Licensed Nursing Assistant tami Disease Visit Annual PCP Team Chronic Disease Visit [facility] Start: 07-19-2024 BP Controlled (<130/80) BP Controlle d (<130/80) [facility] Start: 04-20-2024 Annual PCP Team Licensed Nursing Assistant tami Disease Visit Annual PCP Team Chronic Disease Visit [facility] Start: 04-20-2024 Covid-19 Vaccine () Covid-19 Vaccine () [facility] Comment on above: Postponed from 11/28 (Declined at this time) Start: 04-20-2024 Hepatitis B Vaccine (1 of 3 - 19+ 3-dose series) Hepatitis B Vaccine (1 of 3 - 19+ 3-dose series) [facility] Comment on above: Postponed from 10/25 (Declined at this time) Start: 04-20-2024 Hepatitis B Vaccine (1 of 3 - 3-dose series) Hepatitis B Vaccine (1 of 3 - 3-dose series) [facility] Comment on above: Postponed from 10/25 (Declined at this time) Start: 04-20-2024 Shingrix Vaccine (1 of 2) Cruz grix Vaccine (1 of 2) [facility] Comment on above: Postponed from 10/25 (Declined at this time) Start: 03-07-2024 End: 03-07-2024 Patient encounter procedure 03/07/2024 3:20 PM EST Office Visit Internal Medicine [place] [address] [place], [place] [id number] Suzanne Velez APRN.DRAG DOWN [address] [place], [place] [phone] BP follow up/conerns of hernia [facility] [place] Comment on above: BP follow up/conerns of hernia Start: 01-25-2024 End: 01-25-2024 Patient encounter procedure 01/25/2024 4:30 PM EDT Office Visit General Surgery [address] [place] [address] Karime Hart APRN.DRAG DOWN [address] [place] [address] post op lap rig poss left quintana finelli 01/10 General Surgery Comment on above: post op lap rig poss left quintana finelli 01/10 Start: 01-19-2024 End: 01-19-2024 Patient encounter procedure 01/19/2024 4:00 PM EDT Office Visit Urology [address] [place] [address] Kb Hodges PA-C [address] [place] [address] Hydrocele, unspecified hydrocele type [N43.3] Urology Comment on above: Hydrocele, unspecifi ed hydrocele type [N43.3] Start: 01-11-2024 End: 01-11-2024 Admission to same day surgery center 01/11/2024 1:14 PM EDT - 01/11/2024 3:37 PM EDT Surgery [facility] Surgery [address] [place] [id number] Vani Zambrano, DO [address] [place] [address] LAPAROSCOPIC HERNIORRHAPHY, INGUINAL INITIAL, right possible left [facility] Surgery Comment on above: LAPAROSCOPIC HERNIOR RHAPHY, INGUINAL INITIAL, right possible left Start: 01-11-2024 End: 01-11-2024 Laparoscopy surg rpr initial inguinal hernia LAPAROSCOPIC HERNIORRHAPHY, INGUINAL INITIAL Right inguinal hernia 01/11/2024 1:14 PM EDT [facility] OR Start: 01-11-2024 Subsequent hospital visit by physician 01/11/2024 1:14 PM EDT Hospital Encounter [facility] Surgery [address] [place] [address] Vani Zambrano, [address] [address] Right inguinal hernia [K40.90] [facility] Surgery Comment on above: Right inguinal herni a [K40.90] Start: 12-31-2023 End: 12-31-2023 Patient encounter procedure 12/31/2023 8:00 AM EDT Office [place] [id number] preop 01/10 [facility] Comment on above: preop 01/10 Start: 12-28-2023 End: 12-28-2023 Patient encounter procedure 12/28/2023 1:00 PM EDT Office Visit General Surgery [address] [place], [place] [phone] Jose Núñez MD [address] [place], [place] [phone] Right groin mass [R19.09] General Surgery Comment on above: Right groin mass [R1 9.09] Start: 12-10-2023 End: 12-10-2023 Patient encounter procedure 12/10/2023 4:00 PM EDT Appointment Radiology [address] [address] 12/06/2024 Priority: Routine Radiology Comment on above: 12/06/2024 Priority: R outine Start: 11-29-2023 Covid-19 Vaccine () Covid-19 Vaccine () [facility] Start: 11-29-2023 Covid-19 Vaccine () Covid-19 Vaccine () [facility] Start: 11-29-2023 Influenza vaccination C [facility] Start: 11-23-2023 End: 11-23-2023 Patient encounter procedure 11/23/2023 3:20 PM EDT Office Visit Internal Medicine [place] [address] [facility] [place] [address] Suzanne Velez APRN.DRAG DOWN [address] [facility] [place] [address] 4 week BP follow up [facility] [place] Comment on above: 4 week BP follow up Start: 10-26-2023 End: 10-26-2023 Patient encounter procedure 10/26/2023 3:20 PM EDT Office Visit Internal Medicine [place] [address] [facility] [place] [address] Suzanne Velez APRN.DRAG DOWN [address] [facility] [place] [address] 3 month follow up [facility] Medicine [place] Comment on above: 3 month follow up Start: 09-27-2023 Influenza vaccination Influenza Vacc ine (#1) [facility] Comment on above: Postponed from 11/28 (Declined at this time) Start: 08-21-2023 ANNUAL PCP TEAM INSURANCE VERIFICATION REP TAMI DISEASE VISIT ANNUAL PCP TEAM CHRONIC DISEASE VISIT [facility] Start: 08-21-2023 BP CONTROLLED (<130/80) BP CONTROLLE D (<130/80) [facility] Start: 07-06-2023 End: 10-05-2023 TESTOSTERONE, FREE AND TOTAL TESTOSTERONE, FREE AND TOTAL Lab Routine Class 1 obesity with serious comorbidity and body mass index (BMI) of 30.0 to 30.9 in adult, unspecified obesity type Expected: 07/06/2023, Expires: 10/05/2023 [facility] Work Phone: Comment on above: Expected: 07/06/2023 , Expires: 10/05/2023 Start: 05-19-2023 End: 08-18-2023 Basic metabolic 2000 panel - Serum or Plasma BASIC METABOLIC PNL Lab Routine Essential hypertension Expected: 05/19/2023, Expires: 08/18/2023 [facility] Work Phone: Comment on above: Expected: 05/19/2023 , Expires: 08/18/2023 Start: 05-19-2023 End: 08-18-2023 Lipid 1996 panel - Serum or Plasma LIPID PANEL BASIC Lab Routine Mixed hyperlipidemia Expected: 05/19/2023, Expires: 08/18/2023 [facility] Work Phone: Comment on above: Expected: 05/19/2023 , Expires: 08/18/2023 Start: 05-07-2023 DIABETES SCREEN DIABETES SCREEN [facility] Start: 03-30-2023 Behavioral Health Screening Behavioral Health Screening [facility] Start: 11-28-2022 Covid-19 Vaccine () Covid-19 Vaccine () [facility] Start: 11-28-2022 Influenza vaccination C [facility] Start: 08-20-2022 Adult depression scr eening assessment DEPRESSION SCREENING [facility] Start: 06-30-2022 End: 08-30-2022 CBC W Auto Differential panel - Blood CBC + DIFF Lab Routine Essential hypertension Palpitations Increased frequency of urination Exercise-induced leg fatigue Expected: 06/30/2022, Expires: 08/30/2022 [facility] Work Phone: Comment on above: Expected: 06/30/2022 , Expires: 08/30/2022 Start: 06-30-2022 End: 08-30-2022 Comprehensive metabolic 2000 panel - Serum or Plasma COMP METABOLIC PANEL Lab Routine Essential hypertension Mixed hyperlipidemia Palpitations Increased frequency of urination Exercise-induced leg fatigue Expected: 06/30/2022, Expires: 08/30/2022 [facility] Work Phone: Comment on above: Expected: 06/30/2022 , Expires: 08/30/2022 Start: 06-30-2022 End: 08-30-2022 Hemoglobin A1c in Blood HGB A1C Lab Routine Palpitations Increased frequency of urination Expected: 06/30/2022, Expires: 08/30/2022 [facility] Work Phone: Comment on above: Expected: 06/30/2022 , Expires: 08/30/2022 Start: 06-30-2022 End: 08-30-2022 Lipid 1996 panel - Serum or Plasma LIPID PANEL BASIC Lab Routine Mixed hyperlipidemia Expected: 06/30/2022, Expires: 08/30/2022 [facility] Work Phone: Comment on above: Expected: 06/30/2022 , Expires: 08/30/2022 Start: 06-30-2022 End: 08-30-2022 Magnesium [Mass/volume] in Serum or Plasma MAGNESIUM BLD Lab Routine Palpitations Exercise-induced leg fatigue Expected: 06/30/2022, Expires: 08/30/2022 [facility] Work Phone: Comment on above: Expected: 06/30/2022 , Expires: 08/30/2022 Start: 06-30-2022 End: 08-30-2022 Prostate specific Ag [Mass/volume] in Serum or Plasma PSA/PROSTSPECAG DIAG Lab Routine Increased frequency of urination Expected: 06/30/2022, Expires: 08/30/2022 [facility] Work Phone: Comment on above: Expected: 06/30/2022 , Expires: 08/30/2022 Start: 06-30-2022 End: 08-30-2022 Thyrotropin [Units/volume] in Serum or Plasma TSH BLD Lab Routine Palpitations Exercise-induced leg fatigue Expected: 06/30/2022, Expires: 08/30/2022 [facility] Work Phone: Comment on above: Expected: 06/30/2022 , Expires: 08/30/2022 Start: 06-30-2022 End: 08-30-2022 Urinalysis complete panel - Urine URINALYSIS, WITH MICROSCOPIC Lab Routine Increased frequency of urination Expected: 06/30/2022, Expires: 08/30/2022 [facility] Work Phone: Comment on above: Expected: 06/30/2022 , Expires: 08/30/2022 Start: 03-30-2022 DEPRESSION ASSESSMENT DEPRESSION ASS ESSMENT [facility] Start: 01-03-2022 End: 03-05-2022 CBC W Auto Differential panel - Blood [facility] Work Phone: Comment on above: Expected: 01/03/2022 , Expires: 03/05/2022 Start: 01-03-2022 End: 03-05-2022 Cobalamin (Vitamin B12) [Mass/volume] in Serum or Plasma [facility] Work Phone: Comment on above: Expected: 01/03/2022 , Expires: 03/05/2022 Start: 01-03-2022 End: 03-05-2022 TESTOSTERONE, FREE AND TOTAL [facility] Work Phone: Comment on above: Expected: 01/03/2022 , Expires: 03/05/2022 Start: 01-03-2022 End: 03-05-2022 Thyrotropin [Units/volume] in Serum or Plasma [facility] Work Phone: Comment on above: Expected: 01/03/2022 , Expires: 03/05/2022 Start: 11-28-2021 Influenza vaccination C [facility] Start: 11-21-2021 End: 01-21-2022 VITAMIN D 25 HYDROXY VITAMIN D 25 HYDROXY Lab Routine Vitamin D deficiency Expected: 11/21/2021 (Approximate), Expires: 01/21/2022 [facility] Work Phone: Comment on above: Expected: 11/21/2021 (Approximate), Expires: 01/21/2022 Start: 07-05-2021 COVID-19 VACCINE (4 - Booster for Pfizer series) COVID-19 VACCINE (4 - Booster for Pfizer series) [facility] Start: 05-01-2021 COVID-19 VACCINE (4 - Booster for Pfizer series) COVID-19 VACCINE (4 - Booster for Pfizer series) [facility] Start: 05-01-2021 COVID-19 VACCINE (4 - Pfizer series) COVID-19 VACCINE (4 - Pfizer series) [facility] Start: 03-30-2021 DEPRESSION ASSESSMENT DEPRESSION ASS ESSMENT [facility] Start: 11-28-2020 Influenza vaccination A [facility] Start: 10-26-2019 Pneumococcal Vaccine : 50+ (1 of 1 - PCV) Pneumococcal Vaccine: 50+ (1 of 1 - PCV) [facility] Start: 10-26-2019 Prostate specific an tigen measurement PROSTATE CANCER SCREENING DISCUSSION [facility] Start: 10-26-2019 SHINGRIX VACCINE (1 of 2) CRUZ GRIX VACCINE (1 of 2) [facility] Start: 10-26-2019 Zoster vaccine hzv l mariana for subcutaneous use ZOSTER (SHINGLES) VACCINE (1 of 2) [facility] Start: 10-26-2019 Zoster Vaccines (1 of 2) Zoste r Vaccines (1 of 2) [facility] Start: 03-06-2018 End: 03-06-2019 Bacteria identified Cx Nom (U) URINE CULTURE Routine Acute bilateral low back pain without sciatica Expected: 03/06/2018, Expires: 03/06/2019 [facility] Work Phone: Comment on above: Expected: 03/06/2018 , Expires: 03/06/2019 Start: 11-28-2017 Influenza vaccination INFLUENZA VACC INE (#1) [facility] Work Phone: Start: 2014 COLOGUARD (FIT-DNA) COLOGUARD (FIT-D NA) [facility] Start: 2014 Colonoscopy COLORECTAL CAN CER SCREENING DISCUSSION [facility] Start: [address] COLONOGRAPHY [facility] Start: 2014 FECAL OCCULT BLOOD FECAL OCCULT BLOO D [facility] Start: 2014 Screening for malign ant neoplasm of colon [facility] Start: 2014 SIGMOIDOSCOPY SIGMOIDOSCOPY [facility] Start: 2009 Fasting lipid profile LIPID SCREENIN G [facility] Start: 1988 Hepatitis B Vaccine (1 of 3 - 19+ 3-dose series) Hepatitis B Vaccine (1 of 3 - 19+ 3-dose series) [facility] Start: 1988 Third diphtheria, te tanus and acellular pertussis (DTaP) vaccination TDAP (ADULT) [facility] Start: 1988 Urine microalbumin profile DTAP,TDAP ,TD (1 - Tdap) [facility] Start: 10-26-1987 Anxiety Screening Anxiety Screening [facility] Start: 10-26-1987 BP CONTROLLED (<130/80) BP CONTROLLE D (<130/80) [facility] Start: 10-26-1987 Depression Screening Depression Scre ening [facility] Start: 10-26-1987 HEPATITIS C SCREENING HEPATITIS C [facility] Start: 10-26-1987 Hepatitis C screening Hepatitis C [facility] Start: 10-26-1987 HIV SCREENING HIV SCREENING [facility] Start: 10-26-1987 Tetanus vaccination TETANUS [facility] Start: 1984 HIV screening HIV SCREENING DISCUSSION [facility] Start: 1982 HIV screening HIV SCREENING DISCUSSION [facility] Work Phone: Start: 1981 Adult depression scr eening assessment DEPRESSION SCREENING [facility] Start: 1981 COVID-19 VACCINE (1) COVID-19 VACCIN E (1) [facility] Start: 1974 COVID-19 VACCINE (#1) COVID-19 VACCI NE (#1) [facility] Start: 1974 COVID-19 VACCINE (1) COVID-19 VACCIN E (1) [facility] Start: 1970 MMR Vaccines (1 of 1 - Standard series) MMR Vaccines (1 of 1 - Standard series) [facility] Start: 04-27-1970 COVID-19 VACCINE (#1) COVID-19 VACCI NE (#1) [facility] Start: 1969 HEPATITIS B (1 of 3 - 3-dose series) HEPATITIS B (1 of 3 - 3-dose series) [facility] Start: 1969 Hepatitis B Vaccine (1 of 3 - 3-dose series) Hepatitis B Vaccine (1 of 3 - 3-dose series) [facility] Start: 1969 Hepatitis B Vaccines (1 of 3 - 3-dose series) Hepatitis B Vaccines (1 of 3 - 3-dose series) [facility] Start: 1969 Hepatitis C antibody , confirmatory test HEPATITIS C VIRUS SCREENING [facility] Start: 1969 HIV screening HIV Screening [facility] Start: 1969 Lipid panel Lipid Panel [facility] Start: 1969 Screening for malign ant neoplasm of colon [facility] Start: 1969 Yearly Adult Physical Yearly Adult P hysical [facility] End: 01-21-2025 CT Pelvis WO contrast CT PELVIS WO IVCON Radiology Routine Right groin mass Localized swelling, mass and lump, trunk Hydrocele, unspecified hydrocele type 1 Occurrences starting 12/23/2023 until 01/21/2025 [facility] Work Phone: Comment on above: 1 Occurrences starti ng 12/23/2023 until 01/21/2025 End: 07-01-2023 ECG COMPLETE ECG COMPLETE ECG Routine Palpitations 1 Occurrences starting 06/30/2022 until 07/01/2023 [facility] Work Phone: Comment on above: 1 Occurrences starti ng 06/30/2022 until 07/01/2023 End: 07-01-2023 Echocardiography ECHO Cardiology Routine Palpitations 1 Occurrences starting 06/30/2022 until 07/01/2023 [facility] Work Phone: Comment on above: 1 Occurrences starti ng 06/30/2022 until 07/01/2023 INFLUENZA VACCINE QUADRIVALENT 6 MO - 64 YRS IM INFLUENZA VACCINE QUADRIVALENT 6 MO - 64 YRS IM Immunization/Injection Routine Need for influenza vaccination Ordered: 01/03/2022 [facility] Work Phone: Comment on above: Ordered: 01/03/2022 OUTSIDE VENDOR CARDI AC OUTPATIENT EXTENDED RHYTHM RECORDING (WITHOUT TELEMETRY) OUTSIDE VENDOR CARDIAC OUTPATIENT EXTENDED RHYTHM RECORDING (WITHOUT TELEMETRY) Holter Routine Palpitations Ordered: 06/30/2022 [facility] Work Phone: Comment on above: Ordered: 06/30/2022 End: 01-05-2025 US Pelvis limited US PELVIS LTD Radiology Routine Right testicular pain Right groin mass 1 Occurrences starting 12/07/2023 until 01/05/2025 [facility] Comment on above: 1 Occurrences starti ng 12/07/2023 until 01/05/2025 US Pelvis limited US PELVIS LTD Radiology Routine Right testicular pain Right groin mass 12/10/2023 4:27 PM EDT [facility] End: 01-05-2025 US.doppler Scrotum and testicle US SCROTUM AND CONTENTS Radiology Routine Right testicular pain Right groin mass 1 Occurrences starting 12/07/2023 until 01/05/2025 [facility] Work Phone: Comment on above: 1 Occurrences starti ng 12/07/2023 until 01/05/2025 US.doppler Scrotum a nd testicle US SCROTUM AND CONTENTS Radiology Routine Right testicular pain Right groin mass 12/10/2023 4:27 PM EDT [facility] Work Phone: End: 10-24-2022 XR ELBOW GENERAL 2V AP/LAT RIGHT XR ELBOW GENERAL 2V AP/LAT RIGHT Radiology Routine Right elbow pain 1 Occurrences starting 09/24/2021 until 10/24/2022 [facility] Work Phone: Comment on above: 1 Occurrences starti ng 09/24/2021 until 10/24/2022 [facility] Immunizations Immunization Date Immunization Notes Care Provider Ana bliss 08-20-2021 tetanus toxoid, reduced diphtheria toxoid, and acellular pertussis vaccine, adsorbed Suzanne Velez STAFFING MGR.GISELA Work Phone: [facility] Work Phone: 12-30-2018 influenza virus vaccine, unspecified formulation Lexis Boone STAFFING [employer]-DRAG DOWN Work Phone: [employer] [facility] 02-17-2018 influenza, injectabl e, quadrivalent, contains preservative Suzanne Velez APRN.DRAG DOWN Work Phone: [facility] NEGATED: Highlighted row has not occurred!01-03-2022 influenza, injectable, quadrivalent, contains preservative Rene Mina MD Work Phone: [facility] Work Phone: Comment on above: Deferred: OTHER Payers Date Payer Category Payer Blue Cross Blue [facility] BLUE CARD PPO OOS Member Subscriber Plan / Payer (Effective 2023-Present) Name: Tre Mendoza Relation to Subscriber: Self Name: Tre Mendoza Payer ID: [id number] (NAIC) Type: PPO Address: [facility] [address] [place] [id number] 2023 Unknown [id number] 2020 Unknown [id number] 2020 Unknown 1970 Unknown [id number] Unknown [id number] Social History Date Type Detail Facility Start: 09-19-2011 End: 03-06-2018 Tobacco smoking status NHIS Never smoker [facility] Work Phone: Start: 1970 Sex Assigned At Not on file [facility] Work Phone: Start: 09-19-2011 End: 03-06-2018 Tobacco use and exposure Never used [employer] [facility] Start: 01-31-2021 End: 09-21-2024 Alcohol intake Ex-drinker (finding) [facility] Start: 03-06-2018 History SDOH Alcohol Comment rarely [facility] Tobacco smoking consumption unknown [facility] Start: 02-11-2021 End: 01-25-2024 Alcohol intake Current drinker of alcohol (finding) [facility] Start: 03-27-2020 History SDOH Alcohol Frequency 2 [facility] Start: 03-27-2020 History SDOH Alcohol Std Drinks 1 [facility] Start: 05-14-2015 History SDOH Alcohol Comment 1 beer a month [facility] Start: 03-27-2020 History SDOH Social Connections Phone 5 [facility] Start: 03-27-2020 History SDOH Social Connections Living 3 [facility] Start: 03-27-2020 Education 12 [facility] Start: 08-10-2021 End: 01-25-2023 Exposure to SARS-CoV-2 (event) Not sure [facility] Work Phone: Start: 08-20-2022 End: 06-18-2023 History of Social function [facility] Work Phone: Start: 08-20-2022 End: 06-18-2023 Tobacco use panel [facility] Work Phone: Adult Depression Screening Assessment 0 [facility] Work Phone: Do you belong to any clubs or organizations such as jehovah's witness groups, unions, fraternal or athletic groups, or school groups? No [facility] Are you now , , , , never or living with a partner? [facility] How often to you hav e a drink containing alcohol? Monthly or less [facility] How many standard dr inks containing alcohol do you have on a typical day? 1 or 2 [facility] How often do you hav e 6 or more drinks on 1 occasion? Never [facility] Do you feel stress - tense, restless, nervous, or anxious, or unable to sleep at night because your mind is troubled all the time - these days [OSQ] Not at all [facility] (I/We) worried wheth er (my/our) food would run out before (I/we) got money to buy more. Never true [facility] Medical Equipment Procedure Code Equipment Code Equipment Origin al Text Equipment Identifier Dates Med Dextile Rt 1 3cm X 9cm (5.1' X 3.5'') - [id number] Start: 01-11-2024 Med Dextile Lt 1 3cm X 9cm (5.1' X 3.5'') - [id number] Start: 01-11-2024 Clinical Notes 01-31-2021 to 09-21-2024 Patient InstructionsSuzanne Velez APRN.CNP - 09/21/2024 2:52 PM EDTTelephone Encounter - Aleena Bruner MA - 09/16/2024 9:46 AM EDTTelephone Encounter - Aleena Bruner MA - 09/16/2024 9:46 AM EDT Note Date & Type Note Facility 09-21-2024 Instructions Suzanne Velez APRN.CNP - 09/21/2024 3:12 PM EDT - Continue taking your losartan once daily as prescribed. - Complete fasting blood work next Thursday in the morning (fast for at least 8-12 hours). The lab will check your cholesterol panel, kidney and liver function, electrolytes, fasting blood sugar, and complete blood count. - Your next routine colonoscopy is due in 2030, unless you develop new bowel symptoms or a family member is diagnosed with colon cancer before then. - Keep an eye on your hernia scar area. If you notice new or worsening pain, swelling, hard lumps, or discoloration, contact the clinic for further evaluation (ultrasound may be needed). - Monitor your small bilateral hydrocele. If it enlarges, becomes persistently tender, or you develop new swelling, please schedule an assessment. documented in this encounter [facility] 09-21-2024 Note HNO ID: [id number] Author: SUZANNE VELEZ APRN.CNP Service: ? Author Type: Nurse Practitioner Type: Progress Notes Filed: 09/21/2024 16:17 Note Text: CC: Patient presents with: Physical: Annual Physical HPI Tre Mendoza is a 53 year old male who presents today for annual exam. Recording using [employer] software for draft documentation of the visit was discussed with the patient/authorized outside medical sales representative; all questions welcomed and answered. Patient/authorized outside medical sales representative agreed to proceed Hypertension and HLD: - Managed with losartan once daily. - Home BP readings: ~114/73 mmHg. - Occasional dizziness once every few months and mild, improved with eating. - No headaches, dyspnea, angina, edema, palpitations or syncope. Diet and Exercise: - Diet is generally healthy; occasional snacks with son. - Physical activity includes work-related tasks and outdoor activities with 7-year-old son. - Able to climb six flights of stairs without dyspnea. - Weight has remained stable. - Had US last fall that showed a small bilateral hydrocele and bilateral varicoceles; was found to have inguinal hernia so had surgery for this and never saw urology as ordered. no significant enlargement or pain in testicles. REVIEW OF SYSTEMS General: no fevers, no chills, no night sweats, no recurrent infections, no change in appetite, no change in energy, and no significant changes in weight Respiratory: no cough, no wheezing, no shortness of breath, no hemoptysis Cardiovascular: no chest pain, no chest pressure, no palpitations, and no swelling GI: No nausea, vomiting, or diarrhea : No history of dysuria, frequency or incontinence Psych: PHQ2 is 0 GAD2 is 0 Endocrine: no fatigue, no weight gain, no weight loss, no polyuria, no polyphagia, and no polydipsia Neurologic: No headache, weakness, numbness, dizziness, memory loss, syncope. PAST MEDICAL HISTORY Diagnosis Date Actinic keratosis of right cheek 2013 Bilateral varicoceles 12/10/2023 Hydrocele 12/10/2023 Small bilateral Hypertension Inguinal hernia 12/30/2023 bilateral Mixed hyperlipidemia Right groin mass SVT (supraventricular tachycardia) (HCC) PAST SURGICAL HISTORY Procedure Laterality Date COLONOSCOPY FLX DX W/COLLJ SPEC WHEN PFRMD 02/11/2021 EYE SURGERY HX Right 03/30/1992 LAPAROSCOPY SURG RPR INITIAL INGUINAL HERNIA 01/11/2024 bilateral, with mesh SKIN BIOPSY HX ALLERGIES Iv Contrast [Iodine] MEDICATIONS losartan (COZAAR) 25 mg tablet Take 1 tablet by mouth once daily. CETIRIZINE HCL (ZYRTEC ORAL) Take by mouth. FAMILY HISTORY Problem Relation Age of Onset Heart Failure Father 54 Diabetes Father Breast Cancer Mother 69 Social History Tobacco Use Smoking status: Never Smokeless tobacco: Never Vaping Use Vaping status: Never Used Substance Use Topics Alcohol use: Not Currently Drug use: No PHYSICAL EXAM BP 118/82 Pulse 88 Resp 16 Wt 88.5 kg (195 lb) SpO2 97% BMI 27.20 kg/m? General Appearance: well appearing, in no acute distress, alert Pysch: mood and affect broad and appropriate Eyes: conjunctiva pink and moist, no icterus, sclera white, non-injected Neck: Thyroid normal size and symmetric without palpable nodules, Neck supple, No adenopathy Lymph nodes: No cervical lymphadenopathy and No supraclavicular lymphadenopathy Lungs: Lungs clear to auscultation. No wheezing, rhonchi, rales. Heart: RRR without murmur, gallop, or rubs. No ectopy Abdomen: Abdomen soft, non-tender. Bowel sounds normal. No masses, organomegaly Neurological: Gait normal. speech normal, mental status intact Health maintenance reviewed with patient: Depression Screening Never done Anxiety Screening Never done Hepatitis B Vaccine(1 of 3 - 19+ 3-dose series) due on 09/21/2025 Shingrix Vaccine(1 of 2) due on 09/21/2025 Covid-19 Vaccine( - season) due on 09/21/2025 Pneumococcal Vaccine: 50+(1 of 1 - PCV) due on 09/21/2025 Influenza Vaccine(Season Ended) due on 11/28/2024 Annual PCP Team Chronic Disease Visit due on 09/21/2025 Diabetes Screening due on 07/15/2026 Lipid Screening due on 07/15/2028 Colorectal Cancer Screening due on 02/11/2031 DTaP,Tdap,Td Vaccine(2 - Td or Tdap) due on 08/21/2031 Hepatitis C Screening Completed HIV Screening Completed DATA REVIEWED: No new labs labs ordered by not drawn yet. Assessment/Plan 1. Annual physical exam (Z00.00) - Conducted comprehensive physical examination. - Discussed current health status, including diet and exercise habits. - Scheduled fasting blood work to include cholesterol, kidney, liver, electrolytes, fasting blood sugar, and blood counts. - Colonoscopy up to date; next due in 2030 unless family history changes or symptoms develop. 2. Essential hypertension (I10) - Well-controlled on losartan 50 mg daily. - Blood pressure readings at home average 114/73 mmHg. - Advised to continue current medic (more content not included)... [facility] 09-21-2024 History of Presen t illness Narrative CC: Patient presents with: Physical: Annual Physical HPI Tre Mendoza is a 53 year old male who presents today for annual exam. Recording using [employer] software for draft documentation of the visit was discussed with the patient/authorized outside medical sales representative; all questions welcomed and answered. Patient/authorized outside medical sales representative agreed to proceed Hypertension and HLD: - Managed with losartan once daily. - Home BP readings: ~114/73 mmHg. - Occasional dizziness once every few months and mild, improved with eating. - No headaches, dyspnea, angina, edema, palpitations or syncope. Diet and Exercise: - Diet is generally healthy; occasional snacks with son. - Physical activity includes work-related tasks and outdoor activities with 7-year-old son. - Able to climb six flights of stairs without dyspnea. - Weight has remained stable. - Had US last fall that showed a small bilateral hydrocele and bilateral varicoceles; was found to have inguinal hernia so had surgery for this and never saw urology as ordered. no significant enlargement or pain in testicles. REVIEW OF SYSTEMS General: no fevers, no chills, no night sweats, no recurrent infections, no change in appetite, no change in energy, and no significant changes in weight Respiratory: no cough, no wheezing, no shortness of breath, no hemoptysis Cardiovascular: no chest pain, no chest pressure, no palpitations, and no swelling GI: No nausea, vomiting, or diarrhea : No history of dysuria, frequency or incontinence Psych: PHQ2 is 0 GAD2 is 0 Endocrine: no fatigue, no weight gain, no weight loss, no polyuria, no polyphagia, and no polydipsia Neurologic: No headache, weakness, numbness, dizziness, memory loss, syncope. PAST MEDICAL HISTORY Diagnosis Date Actinic keratosis of right cheek 2013 Bilateral varicoceles 12/10/2023 Hydrocele 12/10/2023 Small bilateral Hypertension Inguinal hernia 12/30/2023 bilateral Mixed hyperlipidemia Right groin mass SVT (supraventricular tachycardia) (HCC) PAST SURGICAL HISTORY Procedure Laterality Date COLONOSCOPY FLX DX W/COLLJ SPEC WHEN PFRMD 02/11/2021 EYE SURGERY HX Right 03/30/1992 LAPAROSCOPY SURG RPR INITIAL INGUINAL HERNIA 01/11/2024 bilateral, with mesh SKIN BIOPSY HX ALLERGIES Iv Contrast [Iodine] MEDICATIONS losartan (COZAAR) 25 mg tablet Take 1 tablet by mouth once daily. CETIRIZINE HCL (ZYRTEC ORAL) Take by mouth. FAMILY HISTORY Problem Relation Age of Onset Heart Failure Father 54 Diabetes Father Breast Cancer Mother 69 Social History Tobacco Use Smoking status: Never Smokeless tobacco: Never Vaping Use Vaping status: Never Used Substance Use Topics Alcohol use: Not Currently Drug use: No PHYSICAL EXAM BP 118/82 Pulse 88 Resp 16 Wt 88.5 kg (195 lb) SpO2 97% BMI 27.20 kg/m General Appearance: well appearing, in no acute distress, alert Pysch: mood and affect broad and appropriate Eyes: conjunctiva pink and moist, no icterus, sclera white, non-injected Neck: Thyroid normal size and symmetric without palpable nodules, Neck supple, No adenopathy Lymph nodes: No cervical lymphadenopathy and No supraclavicular lymphadenopathy Lungs: Lungs clear to auscultation. No wheezing, rhonchi, rales. Heart: RRR without murmur, gallop, or rubs. No ectopy Abdomen: Abdomen soft, non-tender. Bowel sounds normal. No masses, organomegaly Neurological: Gait normal. speech normal, mental status intact Health maintenance reviewed with patient: Depression Screening Never done Anxiety Screening Never done Hepatitis B Vaccine(1 of 3 - 19+ 3-dose series) due on 09/21/2025 Shingrix Vaccine(1 of 2) due on 09/21/2025 Covid-19 Vaccine( - season) due on 09/21/2025 Pneumococcal Vaccine: 50+(1 of 1 - PCV) due on 09/21/2025 Influenza Vaccine(Season Ended) due on 11/28/2024 Annual PCP Team Chronic Disease Visit due on 09/21/2025 Diabetes Screening due on 07/15/2026 Lipid Screening due on 07/15/2028 Colorectal Cancer Screening due on 02/11/2031 DTaP,Tdap,Td Vaccine(2 - Td or Tdap) due on 08/21/2031 Hepatitis C Screening Completed HIV Screening Completed DATA REVIEWED: No new labs labs ordered by not drawn yet. Assessment/Plan 1. Annual physical exam (Z00.00) - Conducted comprehensive physical examination. - Discussed current health status, including diet and exercise habits. - Scheduled fasting blood work to include cholesterol, kidney, liver, electrolytes, fasting blood sugar, and blood counts. - Colonoscopy up to date; next due in 2030 unless family history changes or symptoms develop. 2. Essential hypertension (I10) - Well-controlled on losartan 50 mg daily. - Blood pressure readings at home average 114/73 mmHg. - Advised to continue current medication regimen and monitor blood pressure regularly. - starting regular physical activity, healthy well portioned, low fat, low salt diet will help to further improve this 3. Mixed hyperlipidemia (E78.2) - Scheduled fasting blood work to assess lipid levels. - Will review results and adjust treatment if necessary. - starting regular physical activity, healthy well portioned, low fat, low salt diet will help to further improve this 4. Hydrocele, unspecified hydrocele type (N43.3) 5. Bilateral varicoceles (I86.1) - Small bilateral hydroceles noted and varicoceles noted on US last fall.; no significant pain or swelling reported. Previous symptoms resolved after inguinal hernia repair. - Discussed that hydroceles are fluid collections and typically benign. - Advised monitoring for any changes in size or pain. - Will re-evaluate annually unless symptoms develop and will need to see urology as previously ordered. 6. Screening for depression (Z13.31) 7. Encounter for screening examination for other mental health and behavioral disorders (Z13.39) - No signs of depression, anxiety, or other mental health disorders reported. - Discussed importance of mental health and encouraged open communication about any future concerns. Prescription instructions reviewed with patient as applicable. Potential red flag symptoms discussed with the patient. Reviewed appropriate action plan to take if red flag symptoms occur. Patient agreeable to treatment plan. Suzanne Velez APRN.CNP documented in this encounter [facility] 09-16-2024 Telephone encounter Note Please see pt message Aleena Bruner MA [facility] 09-16-2024 Miscellaneous Notes Please see pt message Aleena Bruner MA documented in this encounter [facility] 09-06-2024 Note Patient Outreach (IN TMMN) TRE MENDOZA ([id number]) 1970 M [facility] Date Time Provider Department 09/06/24 SUZANNE VELEZ During your visit today, we recorded the following information about you: Allergies As of Date: 09/06/2024 Noted Allergy Reaction IV CONTRAST (IODINE) 05/14/2015 2 - Rash Date Reviewed: 01/25/2024 Reviewed by: Karime Hart APRN.DRAG DOWN - Fully Assessed Visit Diagnoses:Essential hypertension [I10] Mixed hyperlipidemia [E78.2] Order(s):BASIC METABOLIC PANEL [SQBMP] Order #: [id number] FUTURE LIPID PANEL, FASTING [SQLIPB] Order #: [id number] FUTURE Prescriptions as of 09/09/2024 - losartan (COZAAR) 25 mg tablet Take 1 tablet by mouth once daily. - tirzepatide, weight loss (ZEPBOUND) 2.5 mg/0.5 mL pen injector Inject 2.5 mg subcutaneously one time a week. - fluticasone (FLONASE) 50 mcg/actuation nasal spray Use 2 Sprays in each nostril once daily. Rinse mouth after use. - CETIRIZINE HCL (ZYRTEC ORAL) Take by mouth. Problem List As Of Date 09/06/2024 Noted Resolved Colon cancer screening [Z12.11] 02/11/2021 02/11/2021 Mixed hyperlipidemia [E78.2] 08/20/2022 Essential hypertension [I10] 08/20/2022 Allergies [T78.40XA] 08/20/2022 SVT (supraventricular tachycardia) (HCC) [I47.1*08/20/2022 Encounter Status:Closed by MARYCRUZ ADAMEUSER on 09/09/24 [facility] 04-20-2024 Telephone encounter Note Patient has been identified by name and date of : Yes Patient phones for refill(s): Requested Prescriptions Pending Prescriptions Disp Refills losartan (COZAAR) 25 mg tablet 90 tablet 1 Sig: Take 1 tablet by mouth once daily. Date of last office visit in primary care: 12/07/2023 Date of next office visit in primary care: Visit date not found Please advise. Thank you. Diana Castillo LPN. [facility] 04-20-2024 Miscellaneous Notes Patient has been identified by name and date of : Yes Patient phones for refill(s): Requested Prescriptions Pending Prescriptions Disp Refills losartan (COZAAR) 25 mg tablet 90 tablet 1 Sig: Take 1 tablet by mouth once daily. Date of last office visit in primary care: 12/07/2023 Date of next office visit in primary care: Visit date not found Please advise. Thank you. Diana Castillo LPN. documented in this encounter [facility] 01-25-2024 History of Presen t illness Narrative Images from the original note were not included. SUBJECTIVE: Tre Mendoza presents for follow up of his Bilateral inguinal hernia repair WITH mesh. On 01/11/24 he underwent a hernia repair, tolerated the procedure well and was discharged home. Patient complaints: None He denies pain, drainage, redness around wound, difficulty voiding, and constipation. OBJECTIVE: BP 138/81 Pulse 91 Resp 16 Ht 180.3 cm (5' 11) Wt 88 kg (194 lb) SpO2 97% BMI 27.06 kg/m General Appearance: Well developed, No acute distress Abdomen: Abdomen soft, non-distended. Incision: no drainage, no erythema, no swelling, no ecchymosis, and no tenderness. Glue still intact. Genitalia: mild bruising on the right testicle. The sensitive examination was discussed with the Patient or Patient's Authorized Corporate Auditor. As applicable, any other physician, advance practice provider, medical student, or other health professional student that will be observing or involved in the sensitive examination for educational or training purposes was discussed with the Patient or Authorized Corporate Auditor. The Patient or Authorized Corporate Auditor has agreed to proceed with the sensitive examination. (Sensitive examination includes inspection and/or palpation of the breasts, pelvis, prostate and anorectal regions) IMPRESSION: Post op course: Normal PLAN: Post-op patient instructions were reviewed with the patient. I have explained to Mr. Mendoza that he may return to normal activity with the following restrictions: No heavy lifting, pushing, or pulling greater than 20 lbs for 4 more weeks post-operatively. I have encouraged him to contact me at any time with any questions or concerns that may arise. Follow up: ZARIA Hart APRN.DRAG DOWN documented in this encounter [facility] 01-25-2024 Note HNO ID: [id number] Author: KARIME HART APRN.GISELA Service: ? Author Type: Nurse Practitioner Type: Progress Notes Filed: 01/25/2024 16:39 Note Text: SUBJECTIVE: Tre Mendoza presents for follow up of his Bilateral inguinal hernia repair WITH mesh. On 01/11/24 he underwent a hernia repair, tolerated the procedure well and was discharged home. Patient complaints: None He denies pain, drainage, redness around wound, difficulty voiding, and constipation. OBJECTIVE: BP 138/81 Pulse 91 Resp 16 Ht 180.3 cm (5' 11) Wt 88 kg (194 lb) SpO2 97% BMI 27.06 kg/m? General Appearance: Well developed, No acute distress Abdomen: Abdomen soft, non-distended. Incision: no drainage, no erythema, no swelling, no ecchymosis, and no tenderness. Glue still intact. Genitalia: mild bruising on the right testicle. The sensitive examination was discussed with the Patient or Patient's Authorized Corporate Auditor. As applicable, any other physician, advance practice provider, medical student, or other health professional student that will be observing or involved in the sensitive examination for educational or training purposes was discussed with the Patient or Authorized Corporate Auditor. The Patient or Authorized Corporate Auditor has agreed to proceed with the sensitive examination. (Sensitive examination includes inspection and/or palpation of the breasts, pelvis, prostate and anorectal regions) IMPRESSION: Post op course: Normal PLAN: Post-op patient instructions were reviewed with the patient. I have explained to Mr. Mendoza that he may return to normal activity with the following restrictions: No heavy lifting, pushing, or pulling greater than 20 lbs for 4 more weeks post-operatively. I have encouraged him to contact me at any time with any questions or concerns that may arise. Follow up: ZARIA Hart APRN.[facility] 01-11-2024 Note HNO ID: [id number] Author: SHONA COSTA APRN.CRNA Service: Anesthesiology Author Type: Nurse Hospital Product Specialist Type: Anesthesia Procedure Notes Filed: 01/11/2024 16:19 Note Text: ANESTHESIOLOGY PROCEDURE NOTE Airway General Information Procedure Start Time/Medication Administration: 01/11/2024 3:56 PM Procedure End Time: 01/11/2024 3:59 PM Patient location during procedure: OR Timeout Performed Pre-procedure: timeout performed Consent Obtained: Yes Patient identity confirmed: arm band and patient Staffing GUITAR MAKER HAND: Shona Costa APRN.GUITAR MAKER HAND Performed by: KATHRYN Indications and Patient Condition Indications for airway management: anesthesia Preoxygenated: yes anesthesia circuit Patient position: sniffing Method: asleep Difficult Mask: No Final Airway Details Final airway type: endotracheal airway Final Endotracheal Airway: ETT Cuffed: yes Successful intubation technique: video laryngoscopy Devices used: Moon Endotracheal tube insertion site: oral Blade size: #4 ETT size (mm): 7.5 Measured from: lips Measurement (cm): 23 Placement verified by: chest auscultation and capnometry Cormack-Lehane Classification: grade I - full view of glottis Number of attempts at approach: 1 Airway not difficult SIGNATURE: Shona Costa APRN.GUITAR MAKER HAND PATIENT NAME: Tre Mendoza DATE: January 11, 2024 TIME: 4:18 PM [facility]: [id number] [facility] 01-01-2024 Telephone encounter Note Spoke to the patient regarding stopping Zepbound weight loss injection one week prior to surgery scheduled with Dr Zambrano on 01-11-24. Patient stated he had stopped the medication already 3 months ago. Antonella Mcnair PA-C [facility] Work Phone: 01-01-2024 Miscellaneous Notes Spoke to the patient regarding stopping Zepbound weight loss injection one week prior to surgery scheduled with Dr Zambrano on 01-11-24. Patient stated he had stopped the medication already 3 months ago. Antonella Mcnair PA-C documented in this encounter [facility] 12-30-2023 Nurse Note REVIEW OF SYSTEMS: General: The patient denies fatigue, denies weight loss, denies weight gain, denies feeling hot, and denies feelings of cold. Eyes: The patient denies glaucoma, NOTES eye injury/surgery, does not wear glasses or contacts. Ear/Nose/Throat: The patient NOTES allergies, denies hayfever, denies ear infections, and denies bloody noses. Cardiovascular: The patient denies chest pain, denies heart disease, denies high blood pressure,denies cardiac stent, denies prior heart attack, denies irregular heart beat, denies high cholesterol, denies poor circulation, denies heart failure, other cardiac issues, denies claudication, denies cold feet, denies peripheral arterial stent. Respiratory: The patient denies tuberculosis, denies pneumonia, denies frequent cough, denies pulmonary embolism, denies shortness of breath, and denies coughing up blood. Gastrointestinal: The patient denies difficulty swallowing, denies acid reflux, denies ulcers, denies vomiting, denies jaundice/hepatitis, denies gallbladder problems, denies black or tarry stools, denies hemorrhoids, denies bleeding from rectum, denies diverticulitis, denies constipation, denies diarrhea, denies loss of stool control, and denies hernias. Kidney/Bladder: The patient denies kidney stones, denies urine infections, and denies bloody urine. Skin: The patient NOTES a history of skin cancer, denies bleeding/changing moles, and denies a history of skin rash. Neurologic: The patient denies a history of epilepsy/convulsions, denies headaches, denies head/spinal injuries, and denies stroke/TIA. Psychiatric: The patient denies psychiatric medications, denies depression, and denies voices, denies substance abuse. Endocrine: The patient denies thyroid disorders, denies diabetes, and denies hormonal problems. Hematologic: The patient denies a history of bruising, denies bleeding, and denies anemia, denies blood clots. Infections: The patient denies a history of measles and mumps, denies rheumatic fever, and denies sexually transmitted diseases. Musculoskeletal: The patient denies back pain/injury, denies back problems, denies sciatica, denies knee/foot trouble, denies arthritis, or denies gout. When was patient's last Mammogram screening? N/A Last Colonoscopy: 2020 Becky Benitez RN [facility] 12-30-2023 Nurse Note REVIEW OF SYSTEMS: General: The patient denies fatigue, denies weight loss, denies weight gain, denies feeling hot, and denies feelings of cold. Eyes: The patient denies glaucoma, NOTES eye injury/surgery, does not wear glasses or contacts. Ear/Nose/Throat: The patient NOTES allergies, denies hayfever, denies ear infections, and denies bloody noses. Cardiovascular: The patient denies chest pain, denies heart disease, denies high blood pressure,denies cardiac stent, denies prior heart attack, denies irregular heart beat, denies high cholesterol, denies poor circulation, denies heart failure, other cardiac issues, denies claudication, denies cold feet, denies peripheral arterial stent. Respiratory: The patient denies tuberculosis, denies pneumonia, denies frequent cough, denies pulmonary embolism, denies shortness of breath, and denies coughing up blood. Gastrointestinal: The patient denies difficulty swallowing, denies acid reflux, denies ulcers, denies vomiting, denies jaundice/hepatitis, denies gallbladder problems, denies black or tarry stools, denies hemorrhoids, denies bleeding from rectum, denies diverticulitis, denies constipation, denies diarrhea, denies loss of stool control, and denies hernias. Kidney/Bladder: The patient denies kidney stones, denies urine infections, and denies bloody urine. Skin: The patient NOTES a history of skin cancer, denies bleeding/changing moles, and denies a history of skin rash. Neurologic: The patient denies a history of epilepsy/convulsions, denies headaches, denies head/spinal injuries, and denies stroke/TIA. Psychiatric: The patient denies psychiatric medications, denies depression, and denies voices, denies substance abuse. Endocrine: The patient denies thyroid disorders, denies diabetes, and denies hormonal problems. Hematologic: The patient denies a history of bruising, denies bleeding, and denies anemia, denies blood clots. Infections: The patient denies a history of measles and mumps, denies rheumatic fever, and denies sexually transmitted diseases. Musculoskeletal: The patient denies back pain/injury, denies back problems, denies sciatica, denies knee/foot trouble, denies arthritis, or denies gout. When was patient's last Mammogram screening? N/A Last Colonoscopy: 2020 Becky Benitez RN documented in this encounter [facility] 12-30-2023 History and physical note Images from the original note were not included. General Surgery Consult REASON FOR VISIT Tre Mendoza is a 53 year old male who is scheduled for a consult at the request of Suzanne Velez for right groin mass. My final recommendations will be communicated back to the requesting physician by the way of the shared medical record, fax, or via US Mail History of Present Illness: Tre Mendoza is a 53 year old male with contributing past medical and surgical history significant for HTN. The patient presents with right groin mass. He was seen in PCP office on 12/07/2023 and reported new onset right testicular pain without known cause. First noticed the pain while walking on flat ground. Also noticed slight swelling of the right testicle and endorsed feeling a pop in his right groin and then the pain improved. Right testicular US showed normal appearance of testicles, normal arterial inflow and venous outflow, small bilateral hydrocele and varicocele. He is scheduled for outpatient urology office visit on 01/19/2024. There was no hernia present on ultrasound imaging. He had a follow-up virtual visit with PCP on 12/23/2023. Reported that he still had some pain/tenderness and an area that intermittently gets larger as the day progresses, but remains reducible. A CT Pelvis was then obtained and showed a 0.7cm superficial calcification within the superior aspect of the right inguinal canal, nonspecific in nature but likely post-inflammatory etiology. No other right inguinal mass or hernia identified on imaging. He says that the bulge in his groin has continued to get larger and intermittently painful. He is able to easily reduce the bulge, and it does reduce when he sits or lays down. No signs or symptoms of obstruction or incarceration. PAST MEDICAL HISTORY Diagnosis Date Actinic keratosis of right cheek 2013 Hypertension Mixed hyperlipidemia Right groin mass SVT (supraventricular tachycardia) (HCC) PAST SURGICAL HISTORY Procedure Laterality Date COLONOSCOPY FLX DX W/COLLJ SPEC WHEN PFRMD 02/11/2021 EYE SURGERY HX Right 03/30/1992 SKIN BIOPSY HX FAMILY HISTORY Problem Relation Age of Onset Heart Failure Father 54 Diabetes Father Breast Cancer Mother 69 Social History Tobacco Use Smoking status: Never Smokeless tobacco: Never Vaping Use Vaping status: Never Used Substance Use Topics Alcohol use: Yes Comment: 1 beer a month Drug use: No The patient has the following: Problem List Noted Noted By Resolved Resolved By Mixed hyperlipidemia 08/20/2022 Rene Mina MD No Essential hypertension 08/20/2022 Rene Mina MD No Allergies 08/20/2022 Rene Mina MD No SVT (supraventricular tachycardia) (HCC) 08/20/2022 Rene Mina MD No Colon cancer screening 02/11/2021 Jose Núñez MD 02/11/2021 Jose Núñez MD MEDICATIONS Current Outpatient Medications Medication Sig Dispense Refill losartan (COZAAR) 25 mg tablet Take 1 tablet by mouth once daily. 90 tablet 1 fluticasone (FLONASE) 50 mcg/actuation nasal spray Use 2 Sprays in each nostril once daily. Rinse mouth after use. 1 Each 5 CETIRIZINE HCL (ZYRTEC ORAL) Take by mouth. tirzepatide, weight loss (ZEPBOUND) 2.5 mg/0.5 mL pen injector Inject 2.5 mg subcutaneously one time a week. (Patient not taking: Reported on 12/30/2023) 6 mL 1 No current facility-administered medications for this visit. CURRENT ALLERGIES ALLERGIES Allergen Reactions Iv Contrast [Iodine] Rash REVIEW OF SYSTEMS PAIN ASSESSMENT: Pain Pain Level: 5 Pain Location: Abdomen-Right Lower Quadrant Description: Dull Duration Units: Minutes Frequency: Intermittent Intervention/Comfort measure: Reposition, Relaxation. GENERAL: No weight loss, malaise or fevers. RESPIRATORY: Negative for cough, wheezing, or shortness of breath. CARDIOVASCULAR: Negative for chest pain, leg swelling, or palpitations. GI: Right groin pain when bulge is present. Gets worse with lifting. No other abdominal pain, nausea, vomiting, diarrhea, or constipation. : No history of dysuria, frequency or incontinence. PHYSICAL EXAMINATION BP 145/93 Pulse 85 Temp 97.2 Ht 5' 11 (1.80m) Wt 192 lb (87.1kg) SpO2 99% BMI 26.79 kg/(m^2). General Appearance: Well appearing, alert, in no acute distress, well-hydrated, well nourished. Lungs: Lungs clear to auscultation. No wheezing, rhonchi, rales Heart: RRR without murmur, gallop, or rubs. No ectopy Groin: Right inguinal obvious bulge on exam while standing, soft and easily reducible. Completely reduces spontaneously while in the supine position. No overlying skin changes. No obvious +impulse or defect on the left side. The sensitive examination was discussed with the Patient or Patient's Authorized Corporate Auditor. As applicable, any other physician, advance practice provider, medical student, or other health professional student that will be observing or involved in the sensitive examination for educational or training purposes was discussed with the Patient or Authorized Corporate Auditor. The Patient or Authorized Corporate Auditor has agreed to proceed with the sensitive examination. (Sensitive examination includes inspection and/or palpation of the breasts, pelvis, prostate and anorectal regions) Diagnostic tests reviewed for today's visit: CT Pelvis RESULT: There is a 0.7 cm calcification within the superior aspect of the right inguinal canal (series 5, image 58), likely the sequela of prior inflammation. Otherwise, unremarkable appearance of the subcutaneous tissues of the right groin. No right inguinal hernia. The left groin and left inguinal canal are unremarkable. Imaged bowel loops, the prostate, and urinary bladder are unremarkable. No pelvic mass or fluid collection. Degenerative changes involve the lower lumbar spine. No destructive lytic or blastic osseous abnormality. Scrotal US ESULT: RIGHT SCROTUM: Right testis: 4.5 x 2.1 x 3.4 cm. Homogeneous with no calcifications or mass. Normal intratesticular arterial and venous flow with normal spectral waveforms. Epididymis: Normal. Vascular flow on Color Doppler is symmetric to the contralateral side. Hydrocele: small present Varicocele: present LEFT SCROTUM: Left testis: 4.4 x 2.1 x 3.6 cm. Homogeneous with no calcifications or mass. Normal intratesticular arterial and venous flow with normal spectral waveforms. Epididymis: Normal. Vascular flow on Color Doppler is symmetric to the contralateral side. Hydrocele: small present Varicocele: present Assessment ASSESSMENT Right groin mass Right inguinal hernia (primary encounter diagnosis) RECOMMENDATION -We discussed the underlying pathophysiology for inguinal hernias and the signs/symptoms of reducible vs incarcerated/strangulated hernias. We also discussed operative vs non-operative management. At this time he would like to proceed with operative management. We reviewed laparoscopic and open approaches with mesh placement. He is a good candidate for a laparoscopic approach with mesh placement. Given that he does not have a large umbilical hernia, he is a good candidate for a TEP approach. -Schedule for laparoscopic inguinal hernia repair with mesh placement via TEP approach, right possible left -Defer management of bilateral varicocele and hydrocele to urology Vani Zambrano DO DATE: December 30, 2023 TIME: 9:00 AM CC: Rene Mina MD CC: Suzanne Velez [facility] 12-30-2023 History and physical note Images from the original note were not included. General Surgery Consult REASON FOR VISIT Tre Mendoza is a 53 year old male who is scheduled for a consult at the request of Suzanne Velez for right groin mass. My final recommendations will be communicated back to the requesting physician by the way of the shared medical record, fax, or via US Mail History of Present Illness: Tre Mendoza is a 53 year old male with contributing past medical and surgical history significant for HTN. The patient presents with right groin mass. He was seen in PCP office on 12/07/2023 and reported new onset right testicular pain without known cause. First noticed the pain while walking on flat ground. Also noticed slight swelling of the right testicle and endorsed feeling a pop in his right groin and then the pain improved. Right testicular US showed normal appearance of testicles, normal arterial inflow and venous outflow, small bilateral hydrocele and varicocele. He is scheduled for outpatient urology office visit on 01/19/2024. There was no hernia present on ultrasound imaging. He had a follow-up virtual visit with PCP on 12/23/2023. Reported that he still had some pain/tenderness and an area that intermittently gets larger as the day progresses, but remains reducible. A CT Pelvis was then obtained and showed a 0.7cm superficial calcification within the superior aspect of the right inguinal canal, nonspecific in nature but likely post-inflammatory etiology. No other right inguinal mass or hernia identified on imaging. He says that the bulge in his groin has continued to get larger and intermittently painful. He is able to easily reduce the bulge, and it does reduce when he sits or lays down. No signs or symptoms of obstruction or incarceration. PAST MEDICAL HISTORY Diagnosis Date Actinic keratosis of right cheek 2013 Hypertension Mixed hyperlipidemia Right groin mass SVT (supraventricular tachycardia) (HCC) PAST SURGICAL HISTORY Procedure Laterality Date COLONOSCOPY FLX DX W/COLLJ SPEC WHEN PFRMD 02/11/2021 EYE SURGERY HX Right 03/30/1992 SKIN BIOPSY HX FAMILY HISTORY Problem Relation Age of Onset Heart Failure Father 54 Diabetes Father Breast Cancer Mother 69 Social History Tobacco Use Smoking status: Never Smokeless tobacco: Never Vaping Use Vaping status: Never Used Substance Use Topics Alcohol use: Yes Comment: 1 beer a month Drug use: No The patient has the following: Problem List Noted Noted By Resolved Resolved By Mixed hyperlipidemia 08/20/2022 Rene Mina MD No Essential hypertension 08/20/2022 Rene Mina MD No Allergies 08/20/2022 Rene Mina MD No SVT (supraventricular tachycardia) ([facility]) 08/20/2022 Rene Mina MD No Colon cancer screening 02/11/2021 Jose Núñez MD 02/11/2021 Jose Núñez MD MEDICATIONS Current Outpatient Medications Medication Sig Dispense Refill losartan (COZAAR) 25 mg tablet Take 1 tablet by mouth once daily. 90 tablet 1 fluticasone (FLONASE) 50 mcg/actuation nasal spray Use 2 Sprays in each nostril once daily. Rinse mouth after use. 1 Each 5 CETIRIZINE HCL (ZYRTEC ORAL) Take by mouth. tirzepatide, weight loss (ZEPBOUND) 2.5 mg/0.5 mL pen injector Inject 2.5 mg subcutaneously one time a week. (Patient not taking: Reported on 12/30/2023) 6 mL 1 No current facility-administered medications for this visit. CURRENT ALLERGIES ALLERGIES Allergen Reactions Iv Contrast [Iodine] Rash REVIEW OF SYSTEMS PAIN ASSESSMENT: Pain Pain Level: 5 Pain Location: Abdomen-Right Lower Quadrant Description: Dull Duration Units: Minutes Frequency: Intermittent Intervention/Comfort measure: Reposition, Relaxation. GENERAL: No weight loss, malaise or fevers. RESPIRATORY: Negative for cough, wheezing, or shortness of breath. CARDIOVASCULAR: Negative for chest pain, leg swelling, or palpitations. GI: Right groin pain when bulge is present. Gets worse with lifting. No other abdominal pain, nausea, vomiting, diarrhea, or constipation. : No history of dysuria, frequency or incontinence. PHYSICAL EXAMINATION BP 145/93 Pulse 85 Temp 97.2 Ht 5' 11 (1.80m) Wt 192 lb (87.1kg) SpO2 99% BMI 26.79 kg/(m^2). General Appearance: Well appearing, alert, in no acute distress, well-hydrated, well nourished. Lungs: Lungs clear to auscultation. No wheezing, rhonchi, rales Heart: RRR without murmur, gallop, or rubs. No ectopy Groin: Right inguinal obvious bulge on exam while standing, soft and easily reducible. Completely reduces spontaneously while in the supine position. No overlying skin changes. No obvious +impulse or defect on the left side. The sensitive examination was discussed with the Patient or Patient's Authorized Corporate Auditor. As applicable, any other physician, advance practice provider, medical student, or other health professional student that will be observing or involved in the sensitive examination for educational or training purposes was discussed with the Patient or Authorized Corporate Auditor. The Patient or Authorized Corporate Auditor has agreed to proceed with the sensitive examination. (Sensitive examination includes inspection and/or palpation of the breasts, pelvis, prostate and anorectal regions) Diagnostic tests reviewed for today's visit: CT Pelvis RESULT: There is a 0.7 cm calcification within the superior aspect of the right inguinal canal (series 5, image 58), likely the sequela of prior inflammation. Otherwise, unremarkable appearance of the subcutaneous tissues of the right groin. No right inguinal hernia. The left groin and left inguinal canal are unremarkable. Imaged bowel loops, the prostate, and urinary bladder are unremarkable. No pelvic mass or fluid collection. Degenerative changes involve the lower lumbar spine. No destructive lytic or blastic osseous abnormality. Scrotal US ESULT: RIGHT SCROTUM: Right testis: 4.5 x 2.1 x 3.4 cm. Homogeneous with no calcifications or mass. Normal intratesticular arterial and venous flow with normal spectral waveforms. Epididymis: Normal. Vascular flow on Color Doppler is symmetric to the contralateral side. Hydrocele: small present Varicocele: present LEFT SCROTUM: Left testis: 4.4 x 2.1 x 3.6 cm. Homogeneous with no calcifications or mass. Normal intratesticular arterial and venous flow with normal spectral waveforms. Epididymis: Normal. Vascular flow on Color Doppler is symmetric to the contralateral side. Hydrocele: small present Varicocele: present Assessment ASSESSMENT Right groin mass Right inguinal hernia (primary encounter diagnosis) RECOMMENDATION -We discussed the underlying pathophysiology for inguinal hernias and the signs/symptoms of reducible vs incarcerated/strangulated hernias. We also discussed operative vs non-operative management. At this time he would like to proceed with operative management. We reviewed laparoscopic and open approaches with mesh placement. He is a good candidate for a laparoscopic approach with mesh placement. Given that he does not have a large umbilical hernia, he is a good candidate for a TEP approach. -Schedule for laparoscopic inguinal hernia repair with mesh placement via TEP approach, right possible left -Defer management of bilateral varicocele and hydrocele to urology Vani Zambrano DO DATE: December 30, 2023 TIME: 9:00 AM CC: Rene Mina MD CC: Suzanne Velez documented in this encounter [facility] 12-29-2023 History of Presen t illness Narrative Radiology Service Progress Note PATIENT NAME: Tre Mendoza DATE OF SERVICE: December 29, 2023 TIME: 3:48 PM PATIENT IDENTITY VERIFICATION COMPLETED USING TWO (2) IDENTIFIERS: Name and Date of confirmed by patient verbally. FALL SCREENING: Has the patient had 2 falls in the last year or 1 fall with injury or currently using an Ambulatory Assistive Device (Walker, Cane, Wheelchair, Crutches, etc.)? No PATIENT GENDER DATA: Male PATIENT RELEVANT IMPLANT DATA REVIEWED: Yes PATIENT PRESENTS WITH AN IMPLANTABLE OR ATTACHED NURSE OB: No RADIOLOGY DEPARTMENT: CT; Exam(s) Completed: Pelvis PERIPHERAL IV DATA: Not applicable SIGNED BY: TIFF Urena) December 29, 2023 3:48 PM documented in this encounter [facility] 12-29-2023 Note HNO ID: [id number] Author: DIAMOND ADDISON RT(Jeferson) Service: ? Author Type: Poiser Type: Progress Notes Filed: 12/29/2023 15:48 Note Text: Radiology Service Progress Note PATIENT NAME: Tre Mendoza DATE OF SERVICE: December 29, 2023 TIME: 3:48 PM PATIENT IDENTITY VERIFICATION COMPLETED USING TWO (2) IDENTIFIERS: Name and Date of confirmed by patient verbally. FALL SCREENING: Has the patient had 2 falls in the last year or 1 fall with injury or currently using an Ambulatory Assistive Device (Walker, Cane, Wheelchair, Crutches, etc.)? No PATIENT GENDER DATA: Male PATIENT RELEVANT IMPLANT DATA REVIEWED: Yes PATIENT PRESENTS WITH AN IMPLANTABLE OR ATTACHED NURSE OB: No RADIOLOGY DEPARTMENT: CT; Exam(s) Completed: Pelvis PERIPHERAL IV DATA: Not applicable SIGNED BY: RT Ayanna(R) December 29, 2023 3:48 PM [facility] 12-23-2023 Note HNO ID: [id number] Author: SUZANNE VELEZ APRN.DRAG DOWN Service: ? Author Type: Nurse Practitioner Type: Progress Notes Filed: 12/23/2023 09:10 Note Text: This Team Access Model visit is a virtual encounter. It required patient-provider interaction for the medical decision making as documented below. Patient agrees to the visit: Yes Patient Location: [place] CC: Patient presents with: possible hernia HPI Tre Mendoza is a 53 year old male who is contacted today for a virtual visit. This is an established patient of Dr. Rene Mina MD. Seen 12/06 for testicular pain that had resolved but noticed mass to right upper groin/right lower abdomen. Us completed of groin and testicular region showing small hydrocele but no hernia or mass. Still with pain, had called Thursday afternoon and told to go to ER. Instead he waited for a virtual visit today. Reports area gets tender as day goes on and area gets larger as the day goes on but is still reducible. Avoids lifting, but still feels it may be getting large then when at last visit. Denies fever chills, firm abdomen, abdominal pain (outside of tenderness to lump), difficulty/pain urinating, N/V/D, constipation, shortness of breath, chest pain, or edema. REVIEW OF SYSTEMS See HPI PAST MEDICAL HISTORY Diagnosis Date Actinic keratosis of right cheek 2013 Hypertension PAST SURGICAL HISTORY Procedure Laterality Date COLONOSCOPY FLX DX W/COLLJ SPEC WHEN PFRMD 02/11/2021 EYE SURGERY HX Right 03/30/1992 SKIN BIOPSY HX ALLERGIES Iv Contrast [Iodine] MEDICATIONS losartan (COZAAR) 25 mg tablet Take 1 tablet by mouth once daily. tirzepatide, weight loss (ZEPBOUND) 2.5 mg/0.5 mL pen injector Inject 2.5 mg subcutaneously one time a week. fluticasone (FLONASE) 50 mcg/actuation nasal spray Use 2 Sprays in each nostril once daily. Rinse mouth after use. CETIRIZINE HCL (ZYRTEC ORAL) Take by mouth. FAMILY HISTORY Problem Relation Age of Onset Heart Failure Father 54 Diabetes Father Breast Cancer Mother 69 Social History Tobacco Use Smoking status: Never Smokeless tobacco: Never Vaping Use Vaping status: Never Used Substance Use Topics Alcohol use: Yes Comment: 1 beer a month Drug use: No EXAM: Virtual visit completed using video, limited exam completed. GENERAL: alert and appropriate, in no distress, well-hydrated, well nourished, and happy, smiling, interactive RESPIRATORY: breathing non-labored CHEST: equal chest rise with normal respiratory effort DATA REVIEWED: Most recent labs and imaging results. Depression Screening Never done Anxiety Screening Never done Covid-19 Vaccine( season) due on 11/29/2023 Influenza Vaccine(1) due on 11/29/2023 Hepatitis B Vaccine(1 of 3 - 19+ 3-dose series) due on 04/20/2024 Shingrix Vaccine(1 of 2) due on 04/20/2024 Annual PCP Team Chronic Disease Visit due on 12/06/2024 BP Controlled (<130/80) due on 12/06/2024 Diabetes Screening due on 07/15/2026 Lipid Screening due on 07/15/2028 Colorectal Cancer Screening due on 02/11/2031 DTaP,Tdap,Td Vaccine(2 - Td or Tdap) due on 08/21/2031 Hepatitis C Screening Completed HIV Screening Completed ASSESSMENT/PLAN: 1. Right groin mass - ICD9: 789.39, ICD10: R19.09 (primary diagnosis) Possible inguinal hernia Unable to assess on virtual, declined er visit Got to er for hardness of lump, pain to lump, abdominal pain or any urgent concern. This explained in detail to patient as this may be a sign of an incarcerated hernia and would need emergent surgery. - CONSULT TO GENERAL SURGERY - CT PELVIS WO IVCON - ENTERIC CONTRAST (RADIOLOGY PROCEDURE) 2. Localized swelling, mass and lump, trunk - ICD9: [id number], ICD10: R22.2 As above - CT PELVIS WO IVCON - ENTERIC CONTRAST (RADIOLOGY PROCEDURE) 3. Hydrocele, unspecified hydrocele type - ICD9: 603.9, ICD10: N43.3 Small - CT PELVIS WO IVCON - ENTERIC CONTRAST (RADIOLOGY PROCEDURE) Prescription instructions reviewed with patient as applicable. Potential red flag symptoms discussed with the patient. Reviewed appropriate action plan to take if red flag symptoms occur. Patient agreeable to treatment plan. During this patient visit I have spent approximately 20 minutes in counseling regarding treatment options, medications, test results, and coordinating care. Suzanne Velez APRN.GISELA [facility] 12-23-2023 History of Presen t illness Narrative This Team Access Model visit is a virtual encounter. It required patient-provider interaction for the medical decision making as documented below. Patient agrees to the visit: Yes Patient Location: [place] CC: Patient presents with: possible hernia HPI Tre Mendoza is a 53 year old male who is contacted today for a virtual visit. This is an established patient of Dr. Rene Mina MD. Seen 12/06 for testicular pain that had resolved but noticed mass to right upper groin/right lower abdomen. Us completed of groin and testicular region showing small hydrocele but no hernia or mass. Still with pain, had called Thursday afternoon and told to go to ER. Instead he waited for a virtual visit today. Reports area gets tender as day goes on and area gets larger as the day goes on but is still reducible. Avoids lifting, but still feels it may be getting large then when at last visit. Denies fever chills, firm abdomen, abdominal pain (outside of tenderness to lump), difficulty/pain urinating, N/V/D, constipation, shortness of breath, chest pain, or edema. REVIEW OF SYSTEMS See HPI PAST MEDICAL HISTORY Diagnosis Date Actinic keratosis of right cheek 2013 Hypertension PAST SURGICAL HISTORY Procedure Laterality Date COLONOSCOPY FLX DX W/COLLJ SPEC WHEN PFRMD 02/11/2021 EYE SURGERY HX Right 03/30/1992 SKIN BIOPSY HX ALLERGIES Iv Contrast [Iodine] MEDICATIONS losartan (COZAAR) 25 mg tablet Take 1 tablet by mouth once daily. tirzepatide, weight loss (ZEPBOUND) 2.5 mg/0.5 mL pen injector Inject 2.5 mg subcutaneously one time a week. fluticasone (FLONASE) 50 mcg/actuation nasal spray Use 2 Sprays in each nostril once daily. Rinse mouth after use. CETIRIZINE HCL (ZYRTEC ORAL) Take by mouth. FAMILY HISTORY Problem Relation Age of Onset Heart Failure Father 54 Diabetes Father Breast Cancer Mother 69 Social History Tobacco Use Smoking status: Never Smokeless tobacco: Never Vaping Use Vaping status: Never Used Substance Use Topics Alcohol use: Yes Comment: 1 beer a month Drug use: No EXAM: Virtual visit completed using video, limited exam completed. GENERAL: alert and appropriate, in no distress, well-hydrated, well nourished, and happy, smiling, interactive RESPIRATORY: breathing non-labored CHEST: equal chest rise with normal respiratory effort DATA REVIEWED: Most recent labs and imaging results. Depression Screening Never done Anxiety Screening Never done Covid-19 Vaccine( season) due on 11/29/2023 Influenza Vaccine(1) due on 11/29/2023 Hepatitis B Vaccine(1 of 3 - 19+ 3-dose series) due on 04/20/2024 Shingrix Vaccine(1 of 2) due on 04/20/2024 Annual PCP Team Chronic Disease Visit due on 12/06/2024 BP Controlled (<130/80) due on 12/06/2024 Diabetes Screening due on 07/15/2026 Lipid Screening due on 07/15/2028 Colorectal Cancer Screening due on 02/11/2031 DTaP,Tdap,Td Vaccine(2 - Td or Tdap) due on 08/21/2031 Hepatitis C Screening Completed HIV Screening Completed ASSESSMENT/PLAN: 1. Right groin mass - ICD9: 789.39, ICD10: R19.09 (primary diagnosis) Possible inguinal hernia Unable to assess on virtual, declined er visit Got to er for hardness of lump, pain to lump, abdominal pain or any urgent concern. This explained in detail to patient as this may be a sign of an incarcerated hernia and would need emergent surgery. - CONSULT TO GENERAL SURGERY - CT PELVIS WO IVCON - ENTERIC CONTRAST (RADIOLOGY PROCEDURE) 2. Localized swelling, mass and lump, trunk - ICD9: [id number], ICD10: R22.2 As above - CT PELVIS WO IVCON - ENTERIC CONTRAST (RADIOLOGY PROCEDURE) 3. Hydrocele, unspecified hydrocele type - ICD9: 603.9, ICD10: N43.3 Small - CT PELVIS WO IVCON - ENTERIC CONTRAST (RADIOLOGY PROCEDURE) Prescription instructions reviewed with patient as applicable. Potential red flag symptoms discussed with the patient. Reviewed appropriate action plan to take if red flag symptoms occur. Patient agreeable to treatment plan. During this patient visit I have spent approximately 20 minutes in counseling regarding treatment options, medications, test results, and coordinating care. Suzanne Velez APRN.DRAG DOWN documented in this encounter [facility] 12-15-[address] Mina, please review 12/10/23 US and advise. Consult to urology pended; please file if agreeable. Jenelle Cisneros MA [facility] 12-15-[address] Mina, please review 12/10/23 US and advise. Consult to urology pended; please file if agreeable. Jenelle Cisneros MA documented in this encounter [facility] 12-07-2023 Note HNO ID: [id number] Author: SUZANNE VELEZ APRN.DRAG DOWN Service: ? Author Type: Nurse Practitioner Type: Progress Notes Filed: 12/07/2023 14:09 Note Text: CC: Patient presents with: Recheck: BP follow up HPI Tre Mendoza is a 53 year old male who presents today for blood pressure follow up. Had losartan decreased 4-6 weeks ago due to asymptomatic hypotension as a result of weight loss. HTN: Mr. Mendoza indicates that he is feeling well and denies any symptoms referable to elevated blood pressure. Specifically denies headache, chest pain, palpitations, dyspnea, and peripheral edema. Patient denies any side effects of his medication(s) and is compliant with their regimen. He does check BP's away from this office with average BP's in the 110s/70s range. Last 3 Encounter BP Readings: Date: BP: 12/07/2023 118/70 10/26/2023 104/72 07/20/2023 118/74 Started with right testicular pain this past Thursday without known cause. Noticed while walking on flat ground. Thinks maybe the right testicle is slightly enlarged. Noticed on Thursday that there was something that felt like it popped to his right groin and the pain improved. Pain is still present to testicle and groin but not as severe. Not affecting his day and is very active today without issue. Denies history of testicular issues, history of hernias, abdominal pain,. N/V/D/constipation, difficulty or pain urinating, blood in urine, injury, falls, fever chills, penile drainage, new sexual partners. REVIEW OF SYSTEMS See HPI PAST MEDICAL HISTORY No date: Actinic keratosis of right cheek Comment: 2013 No date: Hypertension PAST SURGICAL HISTORY 02/11/2021: COLONOSCOPY FLX DX W/COLLJ SPEC WHEN PFRMD 03/30/1992: EYE SURGERY HX; Right No date: SKIN BIOPSY HX ALLERGIES Iv Contrast [Iodine] MEDICATIONS losartan (COZAAR) 25 mg tablet Take 1 tablet by mouth once daily. tirzepatide, weight loss (ZEPBOUND) 2.5 mg/0.5 mL pen injector Inject 2.5 mg subcutaneously one time a week. fluticasone (FLONASE) 50 mcg/actuation nasal spray Use 2 Sprays in each nostril once daily. Rinse mouth after use. CETIRIZINE HCL (ZYRTEC ORAL) Take by mouth. FAMILY HISTORY Problem Relation Age of Onset Heart Failure Father 54 Diabetes Father Breast Cancer Mother 69 Social History Tobacco Use Smoking status: Never Smokeless tobacco: Never Vaping Use Vaping status: Never Used Substance Use Topics Alcohol use: Yes Comment: 1 beer a month Drug use: No PHYSICAL EXAM BP 118/70 Pulse 74 Resp 16 Wt 88.1 kg (194 lb 3.6 oz) SpO2 98% BMI 26.34 kg/m? General Appearance: well appearing, in no acute distress, alert Eyes: conjunctiva pink and moist, no icterus, sclera white, non-injected Lungs: Lungs clear to auscultation. No wheezing, rhonchi, rales. Heart: RRR without murmur, gallop, or rubs. No ectopy Abdomen: Abdomen soft, Bowel sounds normal. No organomegaly tenderness to right groin and with increasing of abdominal pressure bulge noted but retracted with relaxation. Male Genitourinary: Penis normal. No urethral discharge. Scrotum normal to palpation ut right testicle slightly tender. Health maintenance reviewed with patient: Depression Screening Never done Anxiety Screening Never done Covid-19 Vaccine( season) due on 11/29/2023 Influenza Vaccine(1) due on 11/29/2023 Hepatitis B Vaccine(1 of 3 - 19+ 3-dose series) due on 04/20/2024 Shingrix Vaccine(1 of 2) due on 04/20/2024 Annual PCP Team Chronic Disease Visit due on 2024 BP Controlled (<130/80) due on 2024 Diabetes Screening due on 07/15/2026 Lipid Screening due on 07/15/2028 Colorectal Cancer Screening due on 02/11/2031 DTaP,Tdap,Td Vaccine(2 - Td or Tdap) due on 08/21/2031 Hepatitis C Screening Completed HIV Screening Completed DATA REVIEWED: No new labs ASSESSMENT/PLAN: 1. Essential hypertension - ICD9: 401.9, ICD10: I10 (primary diagnosis) - Controlled - Continue current medications - Recommend home blood pressure monitoring, to bring results to next visit - Encouraged sodium restriction, DASH or Mediterranean diet - Recommend regular aerobic exercise - Follow up in 3 months for hypertension visit 2. Right testicular pain - ICD9: 608.9, ICD10: N50.811 Possible inguinal hernia versus other concern. - no urgent concerns in visit but if pain increases, firmness, bulge to lower abdomen that does not go away he needs to go to ER. - US SCROTUM AND CONTENTS - US PELVIS LTD - UA DIP, URINE (POC) - negative 3. Right groin mass - ICD9: 789.39, ICD10: R19.09 As above - US SCROTUM AND CONTENTS - US PELVIS LTD Prescription instructions reviewed with patient as applicable. Potential red flag symptoms discussed with the patient. Reviewed appropriate action plan to take if red flag symptoms occur. Patient agreeable to treatment plan. Suzanne Velez APRN.[facility] 12-07-2023 History of Presen t illness Narrative CC: Patient presents with: Recheck: BP follow up HPI Tre Mendoza is a 53 year old male who presents today for blood pressure follow up. Had losartan decreased 4-6 weeks ago due to asymptomatic hypotension as a result of weight loss. HTN: Mr. Mendoza indicates that he is feeling well and denies any symptoms referable to elevated blood pressure. Specifically denies headache, chest pain, palpitations, dyspnea, and peripheral edema. Patient denies any side effects of his medication(s) and is compliant with their regimen. He does check BP's away from this office with average BP's in the 110s/70s range. Last 3 Encounter BP Readings: Date: BP: 12/07/2023 118/70 10/26/2023 104/72 07/20/2023 118/74 Started with right testicular pain this past Thursday without known cause. Noticed while walking on flat ground. Thinks maybe the right testicle is slightly enlarged. Noticed on Thursday that there was something that felt like it popped to his right groin and the pain improved. Pain is still present to testicle and groin but not as severe. Not affecting his day and is very active today without issue. Denies history of testicular issues, history of hernias, abdominal pain,. N/V/D/constipation, difficulty or pain urinating, blood in urine, injury, falls, fever chills, penile drainage, new sexual partners. REVIEW OF SYSTEMS See HPI PAST MEDICAL HISTORY No date: Actinic keratosis of right cheek Comment: 2013 No date: Hypertension PAST SURGICAL HISTORY 02/11/2021: COLONOSCOPY FLX DX W/COLLJ SPEC WHEN PFRMD 03/30/1992: EYE SURGERY HX; Right No date: SKIN BIOPSY HX ALLERGIES Iv Contrast [Iodine] MEDICATIONS losartan (COZAAR) 25 mg tablet Take 1 tablet by mouth once daily. tirzepatide, weight loss (ZEPBOUND) 2.5 mg/0.5 mL pen injector Inject 2.5 mg subcutaneously one time a week. fluticasone (FLONASE) 50 mcg/actuation nasal spray Use 2 Sprays in each nostril once daily. Rinse mouth after use. CETIRIZINE HCL (ZYRTEC ORAL) Take by mouth. FAMILY HISTORY Problem Relation Age of Onset Heart Failure Father 54 Diabetes Father Breast Cancer Mother 69 Social History Tobacco Use Smoking status: Never Smokeless tobacco: Never Vaping Use Vaping status: Never Used Substance Use Topics Alcohol use: Yes Comment: 1 beer a month Drug use: No PHYSICAL EXAM BP 118/70 Pulse 74 Resp 16 Wt 88.1 kg (194 lb 3.6 oz) SpO2 98% BMI 26.34 kg/m General Appearance: well appearing, in no acute distress, alert Eyes: conjunctiva pink and moist, no icterus, sclera white, non-injected Lungs: Lungs clear to auscultation. No wheezing, rhonchi, rales. Heart: RRR without murmur, gallop, or rubs. No ectopy Abdomen: Abdomen soft, Bowel sounds normal. No organomegaly tenderness to right groin and with increasing of abdominal pressure bulge noted but retracted with relaxation. Male Genitourinary: Penis normal. No urethral discharge. Scrotum normal to palpation ut right testicle slightly tender. Health maintenance reviewed with patient: Depression Screening Never done Anxiety Screening Never done Covid-19 Vaccine(4 - season) due on 11/29/2023 Influenza Vaccine(1) due on 11/29/2023 Hepatitis B Vaccine(1 of 3 - 19+ 3-dose series) due on 04/20/2024 Shingrix Vaccine(1 of 2) due on 04/20/2024 Annual PCP Team Chronic Disease Visit due on 2024 BP Controlled (<130/80) due on 2024 Diabetes Screening due on 07/15/2026 Lipid Screening due on 07/15/2028 Colorectal Cancer Screening due on 02/11/2031 DTaP,Tdap,Td Vaccine(2 - Td or Tdap) due on 08/21/2031 Hepatitis C Screening Completed HIV Screening Completed DATA REVIEWED: No new labs ASSESSMENT/PLAN: 1. Essential hypertension - ICD9: 401.9, ICD10: I10 (primary diagnosis) - Controlled - Continue current medications - Recommend home blood pressure monitoring, to bring results to next visit - Encouraged sodium restriction, DASH or Mediterranean diet - Recommend regular aerobic exercise - Follow up in 3 months for hypertension visit 2. Right testicular pain - ICD9: 608.9, ICD10: N50.811 Possible inguinal hernia versus other concern. - no urgent concerns in visit but if pain increases, firmness, bulge to lower abdomen that does not go away he needs to go to ER. - US SCROTUM AND CONTENTS - US PELVIS LTD - UA DIP, URINE (POC) - negative 3. Right groin mass - ICD9: 789.39, ICD10: R19.09 As above - US SCROTUM AND CONTENTS - US PELVIS LTD Prescription instructions reviewed with patient as applicable. Potential red flag symptoms discussed with the patient. Reviewed appropriate action plan to take if red flag symptoms occur. Patient agreeable to treatment plan. Suzanne Velez APRN.CNP documented in this encounter [facility] 10-26-2023 History of Presen t illness Narrative CC: Patient presents with: Recheck: 3 month follow up HPI Tre Mendoza is a 53 year old male who presents today for routine follow up. Overweight: Has started weaning off zepbound as he doesn't want to lose too much more weight. Walks as much as he can and maintains a healthy diet. HTN: Mr. Mendoza indicates that he is feeling well and denies any symptoms referable to elevated blood pressure. Specifically denies headache, chest pain, palpitations, dyspnea, and peripheral edema. Patient denies any side effects of his medication(s) and is compliant with their regimen. He does check BP's away from this office with average BP's in the 100s/60s with most recent in the 100s/60s range. Last 3 Encounter BP Readings: Date: BP: 10/26/2023 104/72 07/20/2023 118/74 04/20/2023 140/90 Denies dizziness or syncope but has noticed he is more tired on days his BP is lower REVIEW OF SYSTEMS See HPI PAST MEDICAL HISTORY Diagnosis Date Actinic keratosis of right cheek 2013 Hypertension PAST SURGICAL HISTORY Procedure Laterality Date COLONOSCOPY FLX DX W/COLLJ SPEC WHEN PFRMD 02/11/2021 EYE SURGERY HX Right 03/30/1992 SKIN BIOPSY HX ALLERGIES Iv Contrast [Iodine] MEDICATIONS tirzepatide, weight loss (ZEPBOUND) 2.5 mg/0.5 mL pen injector Inject 2.5 mg subcutaneously one time a week. losartan (COZAAR) 50 mg tablet Take 1 tablet by mouth once daily. fluticasone (FLONASE) 50 mcg/actuation nasal spray Use 2 Sprays in each nostril once daily. Rinse mouth after use. montelukast (SINGULAIR) 10 mg tablet Take 1 tablet by mouth daily at bedtime. CETIRIZINE HCL (ZYRTEC ORAL) Take by mouth. FAMILY HISTORY Problem Relation Age of Onset Heart Failure Father 54 Diabetes Father Breast Cancer Mother 69 Social History Tobacco Use Smoking status: Never Smokeless tobacco: Never Vaping Use Vaping Use: Never used Substance Use Topics Alcohol use: Yes Comment: 1 beer a month Drug use: No PHYSICAL EXAM BP 104/72 Pulse 74 Resp 16 Wt 87.5 kg (193 lb) SpO2 97% BMI 26.18 kg/m General Appearance: well appearing, in no acute distress, alert Eyes: conjunctiva pink and moist, no icterus, sclera white, non-injected Lungs: Lungs clear to auscultation. No wheezing, rhonchi, rales. Heart: RRR without murmur, gallop, or rubs. No ectopy Health maintenance reviewed with patient: Depression Screening Never done Anxiety Screening Never done Hepatitis B Vaccine(1 of 3 - 19+ 3-dose series) due on 04/20/2024 Shingrix Vaccine(1 of 2) due on 04/20/2024 Covid-19 Vaccine(4 - season) due on 04/20/2024 Influenza Vaccine(1) due on 11/29/2023 Annual PCP Team Chronic Disease Visit due on 07/19/2024 BP Controlled (<130/80) due on 07/19/2024 Diabetes Screening due on 07/15/2026 Lipid Screening due on 07/15/2028 Colorectal Cancer Screening due on 02/11/2031 DTaP,Tdap,Td Vaccine(2 - Td or Tdap) due on 08/21/2031 Hepatitis C Screening Completed HIV Screening Completed DATA REVIEWED: No new labs ASSESSMENT/PLAN: 1. Essential hypertension - ICD9: 401.9, ICD10: I10 (primary diagnosis) Getting too low with all the weight loss Decreasing losartan - follow up in 4 weeks. - Recommend home blood pressure monitoring, to bring results to next visit - Encouraged sodium restriction, DASH or Mediterranean diet - Recommend regular aerobic exercise 2. Class 1 obesity with serious comorbidity and body mass index (BMI) of 30.0 to 30.9 in adult, unspecified obesity type - ICD9: 278.00, V85.30, ICD10: E66.9, Z68.30 Weight decreasing - Behavioral intervention - can continue to wean off of zepound. 3. Weight loss counseling, encounter for - ICD9: V65.3, ICD10: Z71.3 As above Prescription instructions reviewed with patient as applicable. Potential red flag symptoms discussed with the patient. Reviewed appropriate action plan to take if red flag symptoms occur. Patient agreeable to treatment plan. Suzanne Velez APRN.CNP documented in this encounter [facility] 07-20-2023 History of Presen t illness Narrative CC: Patient presents with: Recheck: Follow up zepbound HPI Tre Mendoza is a 52 year old male who presents today for follow up on zepbound for weight loss. Has previously had hypnotism for weight loss many years ago but was steadily gaining the weight back. With his high blood pressure and elevated cholesterol we decided to try zepbound. Is starting second month of zepbound, tolerating well, and losing weight. Denies any nausea, vomiting, abdominal pain, or bowel changes. Working around outside including cutting fire wood and playing outdoor sports with his son. Eating healthy diet almost all of the time and no longer has the desire for junk food and snacks throughout the day. Has lost 16 pounds and had great improvement of cholesterol levels and blood pressure control with starting the zepbound HTN and HLD: Mr. Mendoza indicates that he is feeling well and denies any symptoms referable to elevated blood pressure. Specifically denies headache, chest pain, palpitations, dyspnea, and peripheral edema. Patient denies any side effects of his medication(s) and is compliant with their regimen. He does not check BP's generally. Last 3 Encounter BP Readings: Date: BP: 07/20/2023 118/74 04/20/2023 140/90 11/03/2022 142/90' REVIEW OF SYSTEMS See HPI PAST MEDICAL HISTORY Diagnosis Date Actinic keratosis of right cheek 2013 Hypertension PAST SURGICAL HISTORY Procedure Laterality Date COLONOSCOPY FLX DX W/COLLJ SPEC WHEN PFRMD 02/11/2021 EYE SURGERY HX Right 03/30/1992 SKIN BIOPSY HX ALLERGIES Iv Contrast [Iodine] MEDICATIONS tirzepatide, weight loss (ZEPBOUND) 2.5 mg/0.5 mL pen injector^Inject 2.5 mg subcutaneously one time a week.^Disp: 2 mL^Rfl: 1 losartan (COZAAR) 50 mg tablet^Take 1 tablet by mouth once daily.^Disp: 90 tablet^Rfl: 3 fluticasone (FLONASE) 50 mcg/actuation nasal spray^Use 2 Sprays in each nostril once daily. Rinse mouth after use.^Disp: 1 Each^Rfl: 5 montelukast (SINGULAIR) 10 mg tablet^Take 1 tablet by mouth daily at bedtime.^Disp: 30 tablet^Rfl: 5 CETIRIZINE HCL (ZYRTEC ORAL)^Take by mouth.^Disp: ^Rfl: FAMILY HISTORY Problem Relation Age of Onset Heart Failure Father 54 Diabetes Father Breast Cancer Mother 69 Social History Tobacco Use Smoking status: Never Smokeless tobacco: Never Vaping Use Vaping Use: Never used Substance Use Topics Alcohol use: Yes Comment: 1 beer a month Drug use: No PHYSICAL EXAM BP 118/74 Pulse 80 Resp 16 Wt 94.3 kg (208 lb) SpO2 96% BMI 28.21 kg/m General Appearance: well appearing, in no acute distress, alert Pysch: mood and affect broad and appropriate Eyes: conjunctiva pink and moist, no icterus, sclera white, non-injected Lungs: Lungs clear to auscultation. No wheezing, rhonchi, rales. Heart: RRR without murmur, gallop, or rubs. No ectopy Health maintenance reviewed with patient: BP Controlled (<130/80) Never done Behavioral Health Screening Never done Hepatitis B Vaccine(1 of 3 - 19+ 3-dose series) due on 04/20/2024 Shingrix Vaccine(1 of 2) due on 04/20/2024 Covid-19 Vaccine( season) due on 04/20/2024 Influenza Vaccine(Season Ended) due on 11/29/2023 Annual PCP Team Chronic Disease Visit due on 04/20/2024 Diabetes Screening due on 07/15/2026 Lipid Screening due on 07/15/2028 Colorectal Cancer Screening due on 02/11/2031 DTaP,Tdap,Td Vaccine(2 - Td or Tdap) due on 08/21/2031 Hepatitis C Screening Completed HIV Screening Completed DATA REVIEWED: Most recent labs ASSESSMENT/PLAN: 1. Class 1 obesity with serious comorbidity and body mass index (BMI) of 30.0 to 30.9 in adult, unspecified obesity type - ICD9: 278.00, V85.30, ICD10: E66.9, Z68.30 (primary diagnosis) Weight decreasing - will continue current dose of zepbound at this time as it is working and he is tolerating well. Follow up in 3 months - Behavioral intervention and - Pharmacological intervention - TIRZEPATIDE (WEIGHT LOSS) 2.5 MG/0.5 ML SUBCUTANEOUS PEN INJECTOR 2. Weight loss counseling, encounter for - ICD9: V65.3, ICD10: Z71.3 As above - TIRZEPATIDE (WEIGHT LOSS) 2.5 MG/0.5 ML SUBCUTANEOUS PEN INJECTOR 3. Essential hypertension - ICD9: 401.9, ICD10: I10 - Controlled - Continue current medications - Recommend home blood pressure monitoring, to bring results to next visit - Encouraged sodium restriction, DASH or Mediterranean diet - Recommend regular aerobic exercise - TIRZEPATIDE (WEIGHT LOSS) 2.5 MG/0.5 ML SUBCUTANEOUS PEN INJECTOR 4. Mixed hyperlipidemia - ICD9: 272.2, ICD10: E78.2 - Controlled with the weight loss and healthy lifestyle changes. - Counseled on healthy diet and regular exercise - Discussed need for and benefit of weight loss. BMI 28.21 kg/(m^2) - TIRZEPATIDE (WEIGHT LOSS) 2.5 MG/0.5 ML SUBCUTANEOUS PEN INJECTOR Prescription instructions reviewed with patient as applicable. Potential red flag symptoms discussed with the patient. Reviewed appropriate action plan to take if red flag symptoms occur. Patient agreeable to treatment plan. Suzanne Velez APRN.GISELA documented in this encounter [facility] 06-18-2023 Miscellaneous Notes Pt notified via my chart. Images from the original note were not included. Refugio'd covermymeds PA for zepbound. The response is. Other Payer: Foreign This request cannot be processed due to the medication is not covered by the plan. View History Medication Being Authorized tirzepatide, weight loss (ZEPBOUND) 2.5 mg/0.5 mL pen injector Inject 2.5 mg subcutaneously one time a week. Dispense: 2 mL Refills: 1 Start: 06/17/2023 Class: Normal Diagnoses: Class 1 obesity with serious comorbidity and body mass index (BMI) of 30.0 to 30.9 in adult, unspecified obesity type; Weight loss counseling, encounter for This order has been released to its destination. To be filled at: [place], [place] [id number] - [id number] - [phone] documented in this encounter [facility] 06-17-2023 Miscellaneous Notes Addended by: DEBRA LOPEZ MA on: 06/17/2023 06:29 PM Modules accepted: Orders Patient has been identified by name and date of : No Patient phones for refill(s): Requested Prescriptions Pending Prescriptions Disp Refills tirzepatide, weight loss (ZEPBOUND) 2.5 mg/0.5 mL pen injector 2 mL 1 Sig: Inject 2.5 mg subcutaneously one time a week. Date of last office visit in primary care: 04/20/2023 Date of next office visit in primary care: 08/10/2023 Please advise. Thank you. Arlet Castro LPN. documented in this encounter [facility] 11-03-2022 History of Presen t illness Narrative Patient presents with: Foot Trauma: R ankle and foot swelling and infection x1 week HPI: Skin Lesion: Location: right medial ankle Duration: scrapped on rocks in the ocean in [place] 1 week ago Pruritis/Pain: tender, hit on a stool bar tonight and hurt a lot Change: NO Drainage/blister/pustule/ulcerat ion: scab Treatment: neosporin. Continued to swim in ocean with open wound. PAST MEDICAL HISTORY Diagnosis Date Actinic keratosis of right cheek 2013 Hypertension MEDICATIONS: losartan (COZAAR) 50 mg tablet^Take 1 tablet by mouth once daily.^Disp: 90 tablet^Rfl: 3 fluticasone (FLONASE) 50 mcg/actuation nasal spray^Use 2 Sprays in each nostril once daily. Rinse mouth after use.^Disp: 1 Each^Rfl: 5 CETIRIZINE HCL (ZYRTEC ORAL)^Take by mouth.^Disp: ^Rfl: montelukast (SINGULAIR) 10 mg tablet^Take 1 tablet by mouth daily at bedtime.^Disp: 30 tablet^Rfl: 5 ALLERGIES: ALLERGIES Allergen Reactions Iv Contrast [Iodine] Rash VITALS: BP 142/90 Pulse 71 Temp 36.1 C (97 F) Resp 18 Wt 100.2 kg (221 lb) SpO2 99% BMI 29.97 kg/m PE: Pleasant, in no acute distress. ANKLE: right. 3cm eschar over the medial malleolus with surrounding pink skin. The eschar is tender to palpation. No erythema, induration, or drainage. There may be small fluid below the eschar. ASSESSMENT/PLAN: 1. Infected abrasion of left ankle, initial encounter - ICD9: 916.1, ICD10: S90.512A, L08.9 No signs of cellulitis in the surrounding skin, but there is possible scant fluctuance below the scab. Start - CEPHALEXIN 500 MG CAPSULE. Follow up with signs of infection such as increasing redness, pain, swelling, purulent drainage, or fever/malaise. Chet Astudillo MD documented in this encounter [facility] 10-30-2022 Miscellaneous Notes Just returned from [facility] left my losartan at [facility]. Need to request a refill at [facility]. Patient phoned to request the following prescription(s) Requested Prescriptions Pending Prescriptions Disp Refills losartan (COZAAR) 50 mg tablet 90 tablet 3 Sig: Take 1 tablet by mouth once daily. Patient aware RX will be sent to pharmacy. No need to notify patient. Last Office Visit: 08/20/22 Next Office Visit: N/A Please review. Daysi Byrnes Ma documented in this encounter [facility] 07-16-2022 Miscellaneous Notes Patient notified. These are usually worn for 2 weeks. Thank you Suzanne Velez APRN.GISELA Patient calling with question, he received the heart monitor in the mail and asking how days is he to be wearing the monitor? He can not remember if AUTO WHEEL ALIGNMENT SPECIALIST told him at his appt and nothing on paperwork in the box with the monitor. Aware AUTO WHEEL ALIGNMENT SPECIALIST is out of the office today. Please advise documented in this encounter [facility] 06-30-2022 History of Presen t illness Narrative CC: Patient presents with: Recheck: Follow up HPI Tre Mendoza is a 51 year old male who presents today for concerns for family history of heart disease. Father had 3le bypass surgery and diabetes when he was his age. Legs get tired going up 4-5 flights of stairs. Also has palpitations daily that will last while at rest for a few minutes. Does drink energy drinks during the day but palpitations are new over the last few months. Denies any chest pain/pressure, shortness of breath, fatigue, nausea, edema, or weakness Exercises by doing yard work, cutting wood, running and playing with son. Does not have palpitations or any symptoms when doing physical labor. Also with increased urination and change is in urinary stream he has noticed over the last few months. Denies any fatigue, increase thirst, increase hunger pain with urination. No family history of prostate issues. REVIEW OF SYSTEMS General: no fevers, no chills, no night sweats, no recurrent infections, no change in appetite, no change in energy, and no significant changes in weight Respiratory: no cough, no wheezing, no shortness of breath, no hemoptysis Cardiovascular: no chest pain, no chest pressure, and no swelling GI: No nausea, vomiting, or diarrhea Neurologic: No headache, weakness, numbness, tingling, dizziness, memory loss, syncope. Endocrinology: See HPI PAST MEDICAL HISTORY Diagnosis Date Actinic keratosis of right cheek 2013 Hypertension PAST SURGICAL HISTORY Procedure Laterality Date COLONOSCOPY FLX DX W/COLLJ SPEC WHEN PFRMD 02/11/2021 EYE SURGERY HX Right 03/30/1992 SKIN BIOPSY HX ALLERGIES Iv Contrast [Iodine] MEDICATIONS fluticasone (FLONASE) 50 mcg/actuation nasal spray Use 2 Sprays in each nostril once daily. Rinse mouth after use. losartan (COZAAR) 50 mg tablet Take 1 tablet by mouth once daily. meloxicam (MOBIC) 15 mg tablet Take 1 tablet by mouth once daily. With food. montelukast (SINGULAIR) 10 mg tablet Take 1 tablet by mouth daily at bedtime. CETIRIZINE HCL (ZYRTEC ORAL) Take by mouth. FAMILY HISTORY Problem Relation Age of Onset Heart Failure Father 54 Diabetes Father Breast Cancer Mother 69 Social History Tobacco Use Smoking status: Never Smokeless tobacco: Never Vaping Use Vaping Use: Never used Substance Use Topics Alcohol use: Yes Comment: 1 beer a month Drug use: No PHYSICAL EXAM BP 128/90 Pulse 84 Temp 36.7 C (98 F) (Temporal) Resp 16 Wt 97.5 kg (215 lb) SpO2 98% BMI 29.16 kg/m General Appearance: well appearing, in no acute distress, alert Skin: Skin color, texture, turgor normal for age; Eyes: conjunctiva pink and moist, no icterus, sclera white, non-injected Neck: Thyroid normal size and symmetric without palpable nodules, Neck supple, No adenopathy Lymph nodes: No cervical lymphadenopathy and No supraclavicular lymphadenopathy Lungs: Lungs clear to auscultation. No wheezing, rhonchi, rales. Heart: RRR without murmur, gallop, or rubs. No ectopy Abdomen: Abdomen soft, non-tender. Bowel sounds normal. No masses, organomegaly Extremities: No deformities, edema, skin discoloration, clubbing or cyanosis. Good capillary refill. Health maintenance reviewed with patient: HEPATITIS B(1 of 3 - 3-dose series) Never done SHINGRIX VACCINE(1 of 2) Never done COVID-19 VACCINE(4 - Booster for Pfizer series) due on 05/01/2021 DEPRESSION ASSESSMENT due on 03/30/2022 INFLUENZA(Season Ended) due on 11/28/2022 DIABETES SCREEN due on 08/20/2024 LIPID SCREEN due on 08/20/2026 COLORECTAL CANCER SCREENING due on 02/11/2031 DTAP,TDAP,TD(2 - Td or Tdap) due on 08/21/2031 HEPATITIS C SCREENING Completed HIV SCREENING Completed DATA REVIEWED: No new labs EKG Interpretation: RHYTHM: Normal sinus rhythm at 73 beats per minute with possible left atrial enlargement AXIS: Normal axis INTERVALS: Normal ID interval QRS COMPLEX: Normal ST SEGMENT: Normal ST-T segments QT INTERVAL: Normal COMPARED WITH PRIOR: unchanged ASSESSMENT/PLAN: 1. Essential hypertension - ICD9: 401.9, ICD10: I10 (primary diagnosis) - suboptimal control - per patient he drank an energy drink right before appointment. Will re-evaluate at follow up - Continue current medication(s) - Encouraged dietary sodium restriction/DASH diet - Recommended regular aerobic exercise. - Recommend home blood pressure monitoring, to bring results in on next visit - Goal of BP <130/80 - COMP METABOLIC PANEL - CBC + DIFF 2. Mixed hyperlipidemia - ICD9: 272.2, ICD10: E78.2 - to be determined upon return of lab results - Encouraged following a low fat, low cholesterol diet. - Discussed the benefits of regular aerobic exercise and weight loss. - LIPID PANEL BASIC - COMP METABOLIC PANEL 3. Palpitations - ICD9: 785.1, ICD10: R00.2 - unsure on cause, will evaluate for cardiac etiology, if normal then possibly from caffeine, anxiety, or other cause. - COMP METABOLIC PANEL - CBC + DIFF - HGB A1C - TSH BLD - MAGNESIUM BLD - ECG COMPLETE - ECHO - PERFLUTREN LIPID MICROSPHERES 1.1 MG/ML INJECTION IN NS 10 ML - SODIUM CHLORIDE 0.9 % (FLUSH) INJECTION SYRINGE - OUTSIDE VENDOR CARDIAC OUTPATIENT EXTENDED RHYTHM RECORDING (WITHOUT TELEMETRY) - keep upcoming appointment with PCP 4. Increased frequency of urination - ICD9: 788.41, ICD10: R35.0 - unsure on cause. If everything normal then possibly from the large amount of caffeine patient drinks - COMP METABOLIC PANEL - CBC + DIFF - HGB A1C - PSA/PROSTSPECAG DIAG - URINALYSIS, WITH MICROSCOPIC 5. Exercise-induced leg fatigue - ICD9: 729.89, ICD10: M62.89 - COMP METABOLIC PANEL - CBC + DIFF - TSH BLD - MAGNESIUM BLD Prescription instructions reviewed with patient as applicable. Potential red flag symptoms discussed with the patient. Reviewed appropriate action plan to take if red flag symptoms occur. Patient agreeable to treatment plan. Suzanne Velez APRN.CNP documented in this encounter [facility] 01-03-2022 History of Presen t illness Narrative Reason for Visit Patient presents with: Recheck Immunizations: Flu vaccination Tre Mendoza is a 51 year old male who presents here today for Above Complaints. Health Maintenance HEPATITIS B(1 of 3 - 3-dose series) SHINGRIX VACCINE(1 of 2) DEPRESSION ASSESSMENT COVID-19 VACCINE(4 - Booster for Pfizer series) INFLUENZA(1) HPI Low energy: this is going on for several months with in this year. He had covid but a couple years ago and then second round of it 3 months ago. But the fatigue dates earlier. The best way he can describe it, is there are days he has to force him self to keep going His hobbies are fishing, hunting, he still wants to do them. Denies feeling sad or emotional. Really enjoy his kid. He is just tired, runs out of gas half way through the day. He has gained 5 pounds but his bmi is 28. He does not sleep more than 8 hours, he sleeps well when he does. He used to snore but now wears some strips and that helps him. wakes up feeling fresh, he does not exercise but extremely physical at work and he walks all the time. He would not consider cpap right now. No problem-specific Assessment & Plan notes found for this encounter. PAST MEDICAL HISTORY Diagnosis Date Actinic keratosis of right cheek 2013 Hypertension PAST SURGICAL HISTORY Procedure Laterality Date COLONOSCOPY FLX DX W/COLLJ SPEC WHEN PFRMD 02/11/2021 EYE SURGERY HX Right 03/30/1992 SKIN BIOPSY HX FAMILY HISTORY Problem Relation Age of Onset Heart Failure Father 54 Diabetes Father Breast Cancer Mother 69 Social History Tobacco Use Smoking status: Never Smokeless tobacco: Never Vaping Use Vaping Use: Never used Substance Use Topics Alcohol use: Yes Comment: 1 beer a month Drug use: No Past medical history, appointments, medications, allergies reviewed. Pertinent Lab/Diagnostic Studies are reviewed and discussed today Current Outpatient Medications: fluticasone (FLONASE) 50 mcg/actuation nasal spray losartan (COZAAR) 50 mg tablet meloxicam (MOBIC) 15 mg tablet montelukast (SINGULAIR) 10 mg tablet ergocalciferol 50,000 unit capsule (VITAMIN D2, DRISDOL) CETIRIZINE HCL (ZYRTEC ORAL) Review of Systems CONSTITUTIONAL: No fevers, chills night sweats, unintended weight loss CARDIOVASCULAR: No chest pain, dyspnea, palpitations, orthopnea, PND, ankle edema. PULM: No dyspnea, unexplained cough. GI: No dysphagia/odynophagia, problematic reflux, constipation, diarrhea, changes in stool habits, hematochezia, melena. : No new urinary complaints, including dysuria, gross hematuria or pyuria. NEURO: No new balance problems, peripheral weakness/paresthesias or numbness of concern. Physical Exam BP 122/66 (BP Site: Left Arm, BP Position: Sitting, BP Cuff Size: Large Adult) Pulse 84 Temp 36.8 C (98.2 F) Resp 12 Ht 182.9 cm (6') Wt 94.3 kg (208 lb) SpO2 99% BMI 28.21 kg/m General appearance: Well appearing, alert, in no acute distress, well nourished. Skin: Skin color, texture, turgor normal, no suspicious rashes or lesions Head: Normocephalic, no masses, lesions, tenderness or abnormalities Eyes: Anicteric sclera. Pupils are equally round and reactive to light. Extraocular movements are intact. Lungs: Lungs clear to auscultation. No wheezing, rhonchi, rales Heart: RRR without murmur, gallop, or rubs. Extremities: No deformities, edema, skin discoloration, clubbing or cyanosis. Good capillary refill. ASSESSMENT/PLAN: 1. Other fatigue - ICD9: 780.79, ICD10: R53.83 (primary diagnosis) - TSH BLD - TESTOSTERONE, FREE AND TOTAL - CBC + DIFF 2. Need for influenza vaccination - ICD9: V04.81, ICD10: Z23 - INFLUENZA VACCINE QUADRIVALENT 6 MO - 64 YRS IM 3. Vitamin B12 deficiency - ICD9: 266.2, ICD10: E53.8 We need - VITAMIN B12 BLOOD Rene Mina MD documented in this encounter [facility] 01-01-2022 Miscellaneous Notes Already completed in another encounter. documented in this encounter [facility] 10-01-2021 History of Presen t illness Narrative Mike Carlos MD Department of Orthopaedics Orthopaedics [address] [place], [place] [id number] Dept: [phone] October 01, [address] Mina for an opinion regarding right elbow pain. My final recommendations will be communicated back to the requesting physician by way of shared Medical record or letter to requesting physician via [place] mail. CHIEF COMPLAINT: New and Pain of the Right Elbow HPI Patient here today for right forearm pain x 3 months. He denies any injury. States he almost cancelled appointment today because it is not bothering him as much. He can pinpoint the location that is bothering him. He has been wearing a tennis elbow strap off and on and using ice to help his pain. 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 ASSESSMENT: M77.11 Lateral epicondylitis of right elbow (primary encounter diagnosis) M25.521 Right elbow pain PLAN: We had a good discussion about his tennis elbow. He like to try an anti-inflammatory now. He may consider cortisone injection at some point time. Stretching, icing, wrist brace. FOLLOW UP INSTRUCTIONS: As needed Mr. Tre Mendoza was advised as to contrast therapies and/or to take analgesics/anti-inflammatories as needed and all contraindications were reviewed. OBJECTIVE: Mr. Tre Mendoza is a pleasant 50 year old in no apparent distress. Gen:There were no vitals taken for this visit. nl development, non obese, no deformities ENT: Normocephalic, normal hearing, moist mucosa CV: Pulses:Radial= 2+ and symmetric, capillary refill < 2 secs, no peripheral edema/varicosities Skin: no rash, bruising or lesions. Good turgor. Psych: cooperative and appropriate, alert and oriented x 3, good mood and affect. Musculoskeletal: Full range of motion at the elbow. Tender to palpation over the lateral epicondyle. Pain with resisted middle finger, wrist and elbow extension. IMAGING: IMPRESSION: No acute osseous abnormality identified. Electrical Drafter: LAZARO Transcribe Date/Time: Oct 01 2021 2:27P Dictated by : SARAN BEJARANO MD This examination was interpreted and the report reviewed and electronically signed by: SARAN BEJARANO MD on Oct 01 2021 2:28PM EST Results-Findings * * *Final Report* * * DATE OF EXAM: Oct 01 2021 2:23PM LILLY [id number] - XR ELBOW 2V AP/LAT RT / PROCEDURE REASON: M25.521-Right elbow pain * * * * Physician Interpretation * * * * Right elbow radiograph HISTORY: 50 years old Clinical information: Right elbow pain pain TECHNIQUE: Images: XR ELBOW 2V AP/LAT RT Comparison: None. RESULT: Findings: No fracture or dislocation. No elbow joint effusion. No soft tissue abnormality identified. Supporting Subjective Information Below: Past Medical History: PAST MEDICAL HISTORY Diagnosis Date Actinic keratosis of right cheek 2013 Hypertension Past Surgical History: PAST SURGICAL HISTORY Procedure Laterality Date COLONOSCOPY FLX DX W/COLLJ SPEC WHEN PFRMD 02/11/2021 EYE SURGERY HX Right 03/30/1992 SKIN BIOPSY HX Family History: FAMILY HISTORY Problem Relation Age of Onset Heart Failure Father 54 Diabetes Father Breast Cancer Mother 69 Social History: Social History Tobacco Use Smoking status: Never Smoker Smokeless tobacco: Never Used Substance Use Topics Alcohol use: Yes Comment: 1 beer a month Drug use: No Medications: Current Outpatient Medications Medication Sig losartan (COZAAR) 50 mg tablet Take 1 tablet by mouth once daily. fluticasone (FLONASE) 50 mcg/actuation nasal spray Use 2 Sprays in each nostril once daily. Rinse mouth after use. montelukast (SINGULAIR) 10 mg tablet Take 1 tablet by mouth daily at bedtime. CETIRIZINE HCL (ZYRTEC ORAL) Take by mouth. meloxicam (MOBIC) 15 mg tablet Take 1 tablet by mouth once daily. With food. ergocalciferol 50,000 unit capsule (VITAMIN D2, DRISDOL) Take 1 capsule by mouth two times a week. (Patient not taking: Reported on 10/01/2021 ) No current facility-administered medications for this visit. Allergies: Iv Contrast [Iodine] ROS: General (negative for fatigue, malaise, weight loss/gain) HEENT (negative for headache, earache, recent vision changes, sinus pain, sore throat) Respiratory (no recent shortness of breath, hemoptysis) CV (negative for chest tightness, palpitations) Musculoskeletal (see HPI) Psych (no depression, anxiety) REFERRING PHYSICIAN: Mr. Tre Mendoza was referred to me for consultation by the following physician. This consultation note will be sent to the following physician by either mail or electronic medical record. Rene Mina [address] [facility] [address] Rene Mina MD [address] [facility] [id number] Mike Carlos MD documented in this encounter [facility] 10-01-2021 Miscellaneous Notes Radiology Service Progress Note PATIENT NAME: Tre Mendoza DATE OF SERVICE: October 01, 2021 TIME: 2:24 PM PATIENT IDENTITY VERIFICATION COMPLETED USING TWO (2) IDENTIFIERS: Name and Date of confirmed by patient verbally. FALL SCREENING: Has the patient had 2 falls in the last year or 1 fall with injury or currently using an Ambulatory Assistive Device (Walker, Cane, Wheelchair, Crutches, etc.)? No PATIENT GENDER DATA: Male PATIENT RELEVANT IMPLANT DATA REVIEWED: Not Applicable RADIOLOGY DEPARTMENT: General X-ray: Exam(s) Completed: Upper Extremity X-Ray(s): Elbow, right PERIPHERAL IV DATA: Not applicable SIGNED BY: RT Juwan(R) October 01, 2021 2:24 PM documented in this encounter [facility] 09-27-2021 Miscellaneous Notes Patient has been identified by name and date of : Yes Patient phones for refill(s): Pending Prescriptions Disp Refills LOSARTAN 50 MG TABLET 90 tablet 3 Sig: Take 1 tablet by mouth once daily. STEVEN: No Date of last office visit in primary care: 08/20/21 Last 2 Encounter Wt Readings: Date: Wt: 08/20/2021 92.1 kg (203 lb) 05/07/2020 102.5 kg (226 lb) Previous labs/tests for medication: Blood Pressure: BUN (mg/dL) Date Value 08/20/2021 20 05/07/2020 22 Sodium (mmol/L) Date Value 08/20/2021 142 05/07/2020 139 Last 1 Encounter BP Readings: Date: BP: 08/20/2021 130/72 Please advise. Thank you. Arlet Vernon LPN documented in this encounter [facility] 08-27-2021 Miscellaneous Notes Patient notified Called and left a voicemail for the Patient to call back and ask for a nurse to receive the providers message. Swapna Gastelum RN continue holding Vit D supplement and we will recheck level in 3 months and decide if different dosage of supplementation is needed. Thank you Suzanne Velez APRN.GISELA Pt called and is notified of providers results and instructions. Pt voices understanding.Pt reports once the Vit D that he was being prescribed ran out he was taking two pills of OTC Vit D every couple of days. Pt does not remember the dose without having it in front of him, but he stopped taking it last night when he saw his level was high. Swapna Gastelum RN Called and left a voicemail for the Patient to call back and ask for a nurse to receive the providers message. Swapna Gastelum RN Please let patient know his Vit D level is too high. Is she still taking a Vit D supplement? If so how much and how often. Also, Cholesterol levels slightly above target but heart disease risk low at this time. Diet should be rich in fruits, vegetables, lean meats and healthy fats/oils. Avoid processed foods, trans fats, vegetable oils and simple sugars. Watch portion sizes. Aerobic exercise for at least 20 minutes, 3-5 days a week. Thank you Suzanne Velez APRN.GISELA documented in this encounter [facility] 06-21-2021 Miscellaneous Notes Patient has not been seen in over a year. He needs an annual exam prior to any more refills. Thank you Suzanne Velez APRN.CNP Patient has been identified by name and date of : Yes Patient phones for refill(s): Pending Prescriptions Disp Refills LOSARTAN 50 MG TABLET 90 tablet 0 Sig: Take 1 tablet by mouth once daily. STEVEN: No Date of last office visit in primary care: 05/07/2021 Last 2 Encounter Wt Readings: Date: Wt: 05/07/2020 102.5 kg (226 lb) 01/07/2020 102.1 kg (225 lb) Previous labs/tests for medication: Blood Pressure: BUN (mg/dL) Date Value 05/07/2020 22 Sodium (mmol/L) Date Value 05/07/2020 139 Last 1 Encounter BP Readings: Date: BP: 01/25/2021 141/91 Please advise. Thank you. Arlet Vernon LPN documented in this encounter [facility] 02-11-2021 History of Past i llness Narrative Problem Noted Date Resolved Date Colon cancer screening 02/11/2021 1 documented as of this encounter (statuses as of 06/21/2021) [address]15-2021 History of Past illness Narrative* Problem Noted Date Resolved Date Colon cancer screening 02/11/2021 1 documented as of this encounter (statuses as of 08/27/2021) [address]15-2021 History of Past illness Narrative* Problem Noted Date Resolved Date Colon cancer screening 02/11/2021 1 documented as of this encounter (statuses as of 09/24/2021) [address]15-2021 History of Past illness Narrative* Problem Noted Date Resolved Date Colon cancer screening 02/11/2021 1 documented as of this encounter (statuses as of 09/27/2021) [facility] History of Past illness Narrative* Problem Noted Date Resolved Date Colon cancer screening 02/11/2021 1 documented as of this encounter (statuses as of 10/02/2021) [address]15-2021 History of Past illness Narrative* Problem Noted Date Resolved Date Colon cancer screening 02/11/2021 1 documented as of this encounter (statuses as of 10/15/2021) [facility] History of Past illness Narrative* Problem Noted Date Resolved Date Colon cancer screening 02/11/2021 1 documented as of this encounter (statuses as of 12/05/2021) [address]15-2021 History of Past illness Narrative* Problem Noted Date Resolved Date Colon cancer screening 02/11/2021 1 documented as of this encounter (statuses as of 12/30/2021) [address]15-2021 History of Past illness Narrative* Problem Noted Date Resolved Date Colon cancer screening 02/11/2021 1 documented as of this encounter (statuses as of 01/01/2022) [address]15-2021 History of Past illness Narrative* Problem Noted Date Resolved Date Colon cancer screening 02/11/2021 1 documented as of this encounter (statuses as of 01/03/2022) [address]15-2021 History of Past illness Narrative* Problem Noted Date Resolved Date Colon cancer screening 02/11/2021 documented as of this encounter (statuses as of 07/01/2022) [address]15-2021 History of Past illness Narrative* Problem Noted Date Resolved Date Colon cancer screening 02/11/2021 documented as of this encounter (statuses as of 07/17/2022) [address]15-2021 History of Past illness Narrative* Problem Noted Date Diagnosed Date Resolved Date Colon cancer screening 02/11/202102/11 documented as of this encounter (statuses as of 10/31/2022) [address]15-2021 History of Past illness Narrative* Problem Noted Date Diagnosed Date Resolved Date Colon cancer screening 02/11/202102/11 documented as of this encounter (statuses as of 11/04/2022) [address]15-2021 History of Past illness Narrative* Problem Noted Date Diagnosed Date Resolved Date Colon cancer screening 02/11/202102/11 documented as of this encounter (statuses as of 02/26/2023) [address]15-2021 History of Past illness Narrative* Problem Noted Date Diagnosed Date Resolved Date Colon cancer screening 02/11/202102/11 documented as of this encounter (statuses as of 05/22/2023) [address]15-2021 History of Past illness Narrative* Problem Noted Date Diagnosed Date Resolved Date Colon cancer screening 02/11/202102/11 documented as of this encounter (statuses as of 06/08/2023) [address]15-2021 History of Past illness Narrative* Problem Noted Date Diagnosed Date Resolved Date Colon cancer screening 02/11/202102/11 documented as of this encounter (statuses as of 06/18/2023) [address]15-2021 History of Past illness Narrative* Problem Noted Date Diagnosed Date Resolved Date Colon cancer screening 02/11/202102/11 documented as of this encounter (statuses as of 06/18/2023) [address]21 History of Past illness Narrative* Problem Noted Date Diagnosed Date Resolved Date Colon cancer screening 02/11/202102/11 documented as of this encounter (statuses as of 07/06/2023) [facility] History of Past illness Narrative* Problem Noted Date Diagnosed Date Resolved Date Colon cancer screening 02/11/202102/11 documented as of this encounter (statuses as of 07/17/2023) [facility] History of Present illness Narrative* Lexis Merline Boone, STAFFING [employer] - 01/31/2021 4:35 PM EDT URGENT CARE ENCOUNTER CHIEF COMPLAINT Sinus Congestion (c/o sore throat, sinus and chest congestion with prod cough x 2 days. vaxxed for covid) HPI Tre Mendoza is a 50 y.o. male who presents today for evaluation of Nasal congestion, sinus pressure, PND, scratchy throat, cough x 2days; symptoms have been mild/moderate severity, constant. Nofever. No Difficulty breathing or wheezing. He is unaware of any sick contacts. He has been vaccinated against coronavirus. REVIEW OF SYSTEMS Review of Systems 8 systems reviewed with patient, negative unless specifically mentioned in history of present illness PAST MEDICAL HISTORY No past medical history on file. SURGICAL HISTORY Past Surgical History: Procedure Laterality Date EYE SURGERY CURRENT MEDICATIONS Current Outpatient Medications Medication Sig Dispense Refill losartan 50 MG tablet cyclobenzaprine 10 MG Tab tablet Take 1 tablet by mouth at bedtime. 5 tablet 0 diclofenac EC [address] tablet Take 1 tablet by mouth 2 times daily. 10 tablet 0 No current facility-administered medications for this visit. ALLERGIES Allergies Allergen Reactions Contrast Dye [Ivp Dye, Iodine Containing] Rash FAMILY HISTORY Family History Problem Relation Age of Onset Breast Cancer Mother Heart Disease - Other Father PHYSICAL EXAM BP (!) 148/95 (BP Location: Right arm, BP Position: Sitting) Pulse 75 Temp 97.6 F (36.4 C) (Temporal) Resp 16 Ht 1.829 m (6') Wt 102.1 kg (225 lb) SpO2 99% BMI 30.52 kg/m Smoking Status Never Smoker Physical Exam Vitals and nursing note reviewed. Constitutional: General: He is not in acute distress. Appearance: He is not toxic-appearing or diaphoretic. HENT: Head: Normocephalic and atraumatic. Right Ear: Tympanic membrane, ear canal and external ear normal. Left Ear: Tympanic membrane, ear canal and external ear normal. Nose: Congestion present. No rhinorrhea. Mouth/Throat: Mouth: Mucous membranes are moist. Pharynx: No oropharyngeal exudate or posterior oropharyngeal erythema. Comments: Very slightly raspy. No trismus, no drooling. Eyes: General: No scleral icterus. Right eye: No discharge. Left eye: No discharge. Conjunctiva/sclera: Conjunctivae normal. Neck: Thyroid: No thyromegaly. Cardiovascular: Rate and Rhythm: Normal rate and regular rhythm. Pulses: Normal pulses. Heart sounds: Normal heart sounds. No murmur heard. No friction rub. No gallop. Pulmonary: Effort: Pulmonary effort is normal. No respiratory distress. Breath sounds: Normal breath sounds. No wheezing, rhonchi or rales. Musculoskeletal: Cervical back: Normal range of motion and neck supple. Lymphadenopathy: Cervical: No cervical adenopathy. Skin: General: Skin is warm and dry. Capillary Refill: Capillary refill takes less than 2 seconds. Coloration: Skin is not pale. Findings: No erythema or rash. Neurological: General: No focal deficit present. Mental Status: He is alert and oriented to person, place, and time. Motor: No abnormal muscle tone. Psychiatric: Mood and Affect: Mood normal. Behavior: Behavior normal. Diagnosis, Assessment & Plan: Tre was seen today for sinus congestion. Diagnoses and all orders for this visit: Viral URI with cough - SARS-COV-2 RAPID; Future - SARS-COV-2 RAPID -Rapid Covid negative, suspect viral etiology. Supportive measures reviewed. If symptoms persist or worsen patient was advised to follow up in our Clinic, Primary Care Provideror the Emergency Department. Benefits, risks, contraindications, & complications of recommended treatments were explained. The patient understands & agrees to proceed with plan. PETE Castellano 01/31/2021 [facility] [employer] [id number] Instructions* Patient Instructions* PETE Castellano - 01/31/2021 4:35 PM EDT Images from the original note were not included. Rapid Covid NEGATIVE. Viral Respiratory Infection: Care Instructions Your Care Instructions Viruses are very small organisms. They grow in number after they enter your body. There are many types that cause different illnesses, such as colds and the mumps. The symptoms of a viral respiratory infection often start quickly. They include a fever, sore throat, and runny nose. You may also just not feel well. Or you may not want to eat much. Most viral respiratory infections are not serious. They usually get better with time and self-care. Antibiotics are not used to treat a viral infection. That's because antibiotics will not help cure a viral illness. In some cases, antiviral medicine can help your body fight a serious viral infection. Follow-up care is a haq part of your treatment and safety. Be sure to make and go to all appointments, and call your doctor if you are having problems. It's also a good idea to know your test resultsand keep a list of the medicines you take. How can you care for yourself at home? Rest as much as possible until you feel better. Be safe with medicines. Take your medicine exactly as prescribed. Call your doctor if you think youare having a problem with your medicine. You will get more details on the specific medicine your doctor prescribes. Take an [id number] pain medicine, such as acetaminophen (Tylenol), ibuprofen (Advil, Motrin),or naproxen (Aleve), as needed for pain and fever. Read and follow all instructions on the label. Do not give aspirin to anyone younger than 20. It has been linked to Mary syndrome, a serious illness. Drink plenty of fluids. Hot fluids, such as tea or soup, may help relieve congestion in your nose and throat. If you have kidney, heart, or liver disease and have to limit fluids, talk with your doctor before you increase the amount of fluids you drink. Try to clear mucus from your lungs by breathing deeply and coughing. Gargle with warm salt water once an hour. This can help reduce swelling and throat pain. Use 1 teaspoon of salt mixed in 1 cup of warm water. Do not smoke or allow others to smoke around you. If you need help quitting, talk to your doctor about stop-smoking programs and medicines. These can increase your chances of quitting for good. To avoid spreading the virus Cough or sneeze into a tissue. Then throw the tissue away. If you don't have a tissue, use your hand to cover your cough or sneeze. Then clean your hand. You can also cough into your sleeve. Wash your hands often. Use soap and warm water. Wash for 15 to 20 seconds each time. If you don't have soap and water near you, you can clean your hands with alcohol wipes or gel. When should you call for help? Call your doctor now or seek immediate medical care if: You have a new or higher fever. Your fever lasts more than 48 hours. You have trouble breathing. You have a fever with a stiff neck or a severe headache. You are sensitive to light. You feel very sleepy or confused. Watch closely for changes in your health, and be sure to contact your doctor if: You do not get better as expected. Where can you learn more? Go to http://[email or web address]/patiented. Enter Q795 in the search box to learn more about 'Viral Respiratory Infection: Care Instructions.' Interested in seeing a video go to [email or web address]/videolibrary to see all video content. Current as of: October 02, 2020 Content Version: 13.0 3357-8231 [employer]. Care instructions adapted under license by your healthcare professional. If you have questions about a medical condition or this instruction, always ask your healthcare professional. [employer] disclaims any warranty or liability for your use of this information. [facility] Diagnosis Viral URI with cough- Primary Acute upper respiratory infections of unspecified site documented in this encounter [facility] note* Diagnosis Vitamin D deficiency- Primary Unspecified vitamin D deficiency documented in this encounter [facility] note* Diagnosis Right elbow pain- Primary Pain in joint, upper arm [facility] Diagnosis Right elbow pain Pain in joint, upper arm documented in this encounter [facility] note* Diagnosis Lateral epicondylitis of right elbow- Primary Lateral epicondylitis of elbow Right elbow pain Pain in joint, upper arm [facility] Diagnosis Sinus pressure Other diseases of nasal cavity and sinuses Sinus headache Headache [facility]* Diagnosis Sinus pressure Other diseases of nasal cavity and sinuses Sinus headache Headache [facility]* Diagnosis Other fatigue- Primary Need for influenza vaccination Need for prophylactic vaccination and inoculation against influenza Vitamin B12 deficiency Other B-complex deficiencies [facility]* Diagnosis Essential hypertension- Primary Unspecified essential hypertension Mixed hyperlipidemia Palpitations Increased frequency of urination Urinary frequency Exercise-induced leg fatigue Other musculoskeletal symptoms referable to limbs documented in this encounter [facility] note* Diagnosis Infected abrasion of left ankle, initial encounter- Primary [facility]* Diagnosis Pain Generalized pain documented in this encounter [facility] Work Phone: Evaluation note* Diagnosis Essential hypertension Unspecified essential hypertension Mixed hyperlipidemia documented in this encounter [facility] note* Diagnosis Class 1 obesity with serious comorbidity and body mass index (BMI) of 30.0 to 30.9 in adult, unspecified obesity type Weight loss counseling, encounter for Dietary surveillance and counseling documented in this encounter [facility] note* Diagnosis Class 1 obesity with serious comorbidity and body mass index (BMI) of 30.0 to 30.9 in adult, unspecified obesity type- Primary [facility]* Diagnosis Class 1 obesity with serious comorbidity and body mass index (BMI) of 30.0 to 30.9 in adult, unspecified obesity type- Primary Weight loss counseling, encounter for Dietary surveillance and counseling Essential hypertension Unspecified essential hypertension Mixed hyperlipidemia documented in this encounter [facility] note* Diagnosis Essential hypertension- Primary Unspecified essential hypertension Class 1 obesity with serious comorbidity and body mass index (BMI) of 30.0 to 30.9 in adult, unspecified obesity type Weight loss counseling, encounter for Dietary surveillance and counseling documented in this encounter [facility] note* Diagnosis Essential hypertension- Primary Unspecified essential hypertension Right testicular pain Unspecified disorder of male genital organs Right groin mass Abdominal or pelvic swelling, mass, or lump, right lower quadrant documented in this encounter [facility] note* Diagnosis Right testicular pain Unspecified disorder of male genital organs Right groin mass Abdominal or pelvic swelling, mass, or lump, right lower quadrant documented in this encounter [facility] note* Diagnosis Hydrocele, unspecified hydrocele type- Primary Bilateral varicoceles Scrotal varices documented in this encounter [facility] note* Diagnosis Right groin mass- Primary Abdominal or pelvic swelling, mass, or lump, right lower quadrant Localized swelling, mass and lump, trunk Hydrocele, unspecified hydrocele type documented in this encounter [facility] note* Diagnosis Right inguinal hernia- Primary Inguinal hernia without mention of obstruction or gangrene, unilateral or unspecified, (not specified as recurrent) Right groin mass Abdominal or pelvic swelling, mass, or lump, right lower quadrant Right inguinal hernia Inguinal hernia without mention of obstruction or gangrene, unilateral or unspecified, (not specified as recurrent) documented in this encounter [facility] note* Diagnosis Right groin mass Abdominal or pelvic swelling, mass, or lump, right lower quadrant Localized swelling, mass and lump, trunk Hydrocele, unspecified hydrocele type Right inguinal hernia Inguinal hernia without mention of obstruction or gangrene, unilateral or unspecified, (not specified as recurrent) documented in this encounter [facility] note* Diagnosis Right inguinal hernia- Primary Inguinal hernia without mention of obstruction or gangrene, unilateral or unspecified, (not specified as recurrent) Left inguinal hernia Inguinal hernia without mention of obstruction or gangrene, unilateral or unspecified, (not specified as recurrent) documented in this encounter [facility] note* Diagnosis Mixed hyperlipidemia- Primary Essential hypertension Unspecified essential hypertension documented in this encounter [facility] note* Diagnosis Annual physical exam- Primary Routine general medical examination at a health care facility Essential hypertension Unspecified essential hypertension Mixed hyperlipidemia Hydrocele, unspecified hydrocele type Bilateral varicoceles Scrotal varices Screening for depression Encounter for screening examination for other mental health and behavioral disorders documented in this encounter [facility] for referral (narrative)* Diagnostic Procedure Only (Routine) - Pending Review Specialty Diagnoses / Procedures Referred By Perla good Referred To Contact XR IMAGING Diagnoses Right elbow pain Procedures XR ELBOW GENERAL 2V AP/LAT RIGHT RADEX ELBOW 2 VIEWS Mike Carlos MD [address] [place] [address] Xr Imaging Referral ID Status Reason Start Date Expiration Date Visits Requested Visits Authorized [id number] Pending Review Auto-Generat ed Referral 09/24/2021 10/24/2022 1 1 [facility] for referral (narrative)* Diagnostic Procedure Only (Routine) - Closed Specialty Diagnoses / Procedures Referred By Contac t Referred To Contact XR IMAGING Diagnoses Right elbow pain Procedures XR ELBOW GENERAL 2V AP/LAT RIGHT RADEX ELBOW 2 VIEWS Mike Carlos MD [address] [place] [address] Xr Imaging Referral ID Status Reason Start Date Expiration Date V isits Requested Visits Authorized [id number] Closed Auto-Generate d Referral 09/24/2021 10/24/2022 1 1 [facility] for referral (narrative)* Outpatient Procedure (Routine) - Authorized Specialty Diagnoses / Procedures Referred By Contac t Referred To Contact [facility] Diagnoses Palpitations Procedures ECHO ECHO TTHRC R-T 2D W/WOM-MODE COMPL SPEC&COLR D Suzanne Velez APRN.DRAG DOWN [address] [place] [address] [facility] [address] [place] [address] Referral ID Status Reason Start Date Expiration Date Visits Requested Visits Authorized [id number] Authorized Auto-Generat ed Referral 06/30/2022 06/30/2023 1 1 * Outpatient Procedure (Routine) - Pending Review Specialty Diagnoses / Procedures Referred By Contac t Referred To [facility] Diagnoses Palpitations Procedures ECG COMPLETE ECG ROUTINE ECG W/LEAST 12 LDS W/I&R Suzanne Velez APRN.DRAG DOWN [address] [place] [address] [facility] [address] [place] [address] Referral ID Status Reason Start Date Expiration Date Visits Requested Visits Authorized [id number] Pending Review Auto-Generat ed Referral 06/30/2022 06/30/2023 1 1 [facility] for referral (narrative)* Diagnostic Procedure Only (Routine) - Authorized Specialty Diagnoses / Procedures Referred By Contac t Referred To Contact US IMAGING Diagnoses Right testicular pain Right groin mass Procedures US PELVIS LTD US PELVIC NONOBSTETRIC IMAGE DCMTN LIMITED/F/U Suzanne Velez APRN.DRAG DOWN [address] [place] [address] [place] [address] Referral ID Status Reason Start Date Expiration Date Visits Requested Visits Authorized [id number] Authorized Auto-Generat ed Referral 12/07/2023 01/05/2025 1 1 * Diagnostic Procedure Only (Routine) - Authorized Specialty Diagnoses / Procedures Referred By Contac t Referred To Contact US IMAGING Diagnoses Right testicular pain Right groin mass Procedures US SCROTUM AND CONTENTS US SCROTUM & CONTENTS Suzanne Velez APRN.DRAG DOWN [address] [place] [address] [place] [address] Referral ID Status Reason Start Date Expiration Date Visits Requested Visits Authorized [id number] Authorized Auto-Generat ed Referral 12/07/2023 01/05/2025 1 1 [facility] for visit Narrative* Diagnostic Procedure Only (Routine) - Closed Specialty Diagnoses / Procedures Referred By Contac t Referred To Contact XR IMAGING Diagnoses Right elbow pain Procedures XR ELBOW GENERAL 2V AP/LAT RIGHT RADEX ELBOW 2 VIEWS Mike Carlos MD [address] [place] [address] Xr Imaging Referral ID Status Reason Start Date Expiration Date V isits Requested Visits Authorized [id number] Closed Auto-Generate d Referral 09/24/2021 10/24/2022 1 1 [facility] Diagnostic Procedure Only (Routine) - Closed Specialty Diagnoses / Procedures Referred By Perla good Referred To Contact US IMAGING Diagnoses Right testicular pain Right groin mass Procedures US PELVIS LTD US PELVIC NONOBSTETRIC IMAGE DCMTN LIMITED/F/U Suzanne Velez APRN.DRAG DOWN [address] [facility] [place] [address] [place] [address] Referral ID Status Reason Start Date Expiration Date V isits Requested Visits Authorized [id number] Closed Auto-Generate d Referral 12/07/2023 01/05/2025 1 1 [facility] Instructions * Patient Instructions - Sera Montalvo CNP - 03/06/2018 8:01 PM EST Start muscle relaxer & anti inflammatory as prescribed. Await culture results. Follow-up with Primary Care Provider or return to clinic in 5-7 days if not improving or worsening of symptoms including elevated blood pressure Go to the nearest Emergency Department for any Chest Pain, Shortness of Breath, worsening pain in 24 hours, difficulty urinating or difficulty walking in this encounter History of Present Illness * Sera Montalvo CNP - 03/06/2018 7:30 PM EST Formatting of this note may be different from the original. URGENT CARE eNCOUnter CHIEF COMPLAINT Flank Pain (s/sx started yesterday evening, complains bilateral flank pain, a subjective fever, anddark urine. Denies any event or injury that would have caused the back pain.) ALFONZO Mendoza is a 47 y.o. male who presents today for low back pain that he cannot identify a cause to x 24 hours. He states that he does not have trouble urinating but he had chills last evening & even w/ Advil was not able to get comfortable enough to sleep. He denies hx of renal calculi. He denies difficulty ambulating REVIEW OF SYSTEMS Review of Systems Constitutional: Positive for chills. Negative for fever. Respiratory: Negative for shortness of breath. Cardiovascular: Negative for chest pain. Genitourinary: Negative for difficulty urinating, flank pain and hematuria. Musculoskeletal: Positive for back pain. Neurological: Negative for weakness and numbness. PAST MEDICAL HISTORY No past medical history on file. SURGICAL HISTORY Past Surgical History: Procedure Laterality Date EYE SURGERY CURRENT MEDICATIONS No current outpatient prescriptions on file. No current facility-administered medications for this visit. ALLERGIES Allergies Allergen Reactions Contrast Dye [Ivp Dye, Iodine Containing] Rash FAMILY HISTORY Family History Problem Relation Age of Onset Breast Cancer Mother Heart Disease - Other Father SOCIAL HISTORY Social History Social History Marital status: Spouse name: N/A Number of children: N/A Years of education: N/A Occupational History Not on file. Social History Main Topics Smoking status: Never Smoker Smokeless tobacco: Never Used Alcohol use Yes Comment: rarely Drug use: No Sexual activity: Not on file Other Topics Concern Domestic Violence No Social History Narrative No narrative on file PHYSICAL EXAM Blood pressure (!) 151/101, pulse 75, temperature 98.5 F (36.9 C), temperature source Temporal, resp. rate 17, height 1.778 m (5' 10), weight 95.3 kg (210 lb), SpO2 96 %. Physical Exam Constitutional: He is oriented to person, place, and time. Cardiovascular: Normal rate and regular rhythm. Pulmonary/Chest: Effort normal and breath sounds normal. Abdominal: Soft. There is no tenderness. There is no CVA tenderness. Musculoskeletal: Lumbar back: He exhibits normal range of motion, no bony tenderness and no swelling. Gait normal Neurological: He is alert and oriented to person, place, and time. Skin: Skin is warm and dry. Psychiatric: He has a normal mood and affect. His behavior is normal. Nursing note and vitals reviewed. Labs Lab Results Component Value Date APPEARANCE clear 03/06/2018 COLOR dark yellow 03/06/2018 KETONES negative 03/06/2018 SPECIFICGRAV >=1.030 03/06/2018 BLOOD negative 03/06/2018 PH 5.5 03/06/2018 PROTEIN 30 03/06/2018 UROBILINOGEN 1.0 03/06/2018 NITRITE negative 03/06/2018 LEUKOCYTE negative 03/06/2018 Diagnosis, Assessment & Plan: Tre was seen today for flank pain. Diagnoses and all orders for this visit: Acute bilateral low back pain without sciatica - cyclobenzaprine 10 MG Tab tablet; Take 1 tablet by mouth at bedtime for 5 days. - diclofenac EC [address] tablet; Take 1 tablet by mouth 2 times daily for 5 days. - URINE CULTURE; Future Flank pain - POCT URINALYSIS DIPSTICK AUTOMATED W/O SCOP Elevated blood-pressure reading without diagnosis of hypertension Differentials include UTI, Renal calculi Start muscle relaxer & anti inflammatory as prescribed. Await culture results. Follow-up with Primary Care Provider or return to clinic in 5-7 days if not improving or worsening of symptoms including elevated blood pressure Go to the nearest Emergency Department for any Chest Pain, Shortness of Breath, worsening pain in 24 hours, difficulty urinating or difficulty walking Sera Montalvo CNP 03/06/2018 in this encounter Assessments Diagnosis Acute bilateral low back georges n without sciatica - Primary Flank pain Abdominal pain, unspecified site Elevated blood-pressure read ing without diagnosis of hypertension Elevated blood pressure reading without diagnosis of hypertension Summary Purpose Family History No Family History Records FoundNo Family History Records FoundNo Family History Records FoundNo Family History Records FoundNo Family History Records FoundNo Family History Records FoundNo Family History Records Found Advance Directives No Advanced Directives Records FoundDocuments on File Type Date Recorded 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 Advance Directive(s) 02/11/2021 8:59 AM Advance Directive(s) 01/29/2021 9:20 AM Documents on File Type Date Recorded 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 Advance Directive(s) 02/11/2021 8:59 AM Advance Directive(s) 01/29/2021 9:20 AM Documents on File Type Date Recorded 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 Living Will 01/25/2023 10:42 AM Reason for Referral Specialty Diagnoses / Procedures Referred By Contac t Referred To Contact Radiology Diagnoses Pain Procedures XR ankle right 3+ views Myesha Garibay APRN-CNP Referral ID Status Reason Start Date Expiration Date Visits Requested Visits Authorized [id number] Authorized Perform Procedure 3 01/25/2024 1 1 Specialty Diagnoses / Procedures Referred By Contac t Referred To Contact Urology Diagnoses Hydrocele, unspecified hydrocele type Bilateral varicoceles Procedures CONSULT TO UROLOGY OFFICE/OUTPATIENT NEW HIGH MDM 60 MINUTES Suzanne Velez APRN.GISELA [address] [place] [address] Referral ID Status Reason Start Date Expiration Date Visits Requested Visits Authorized [id number] Authorized PCP Requested Referral 12/16/2023 12/15/2024 1 1 Specialty Diagnoses / Procedures Referred By Contac t Referred To Contact Urology Diagnoses Hydrocele, unspecified hydrocele type Bilateral varicoceles Procedures CONSULT TO UROLOGY OFFICE/OUTPATIENT [facility] 60 MINUTES Rene Mina MD [address] [place] [address] Referral ID Status Reason Start Date Expiration Date Visits Requested Visits Authorized [id number] Authorized PCP Requested Referral 12/15/2023 12/14/2024 1 1 Specialty Diagnoses / Procedures Referred By Contac t Referred To Contact CT IMAGING Diagnoses Right groin mass Localized swelling, mass and lump, trunk Hydrocele, unspecified hydrocele type Procedures CT PELVIS WO IVCON CT PELVIS W/O CONTRAST MATERIAL Suzanne Velez APRN.DRAG DOWN [address] [place] [address] [place] [address] Referral ID Status Reason Start Date Expiration Date Visits Requested Visits Authorized [id number] New Request Auto-Generat ed Referral 12/23/2023 01/21/2025 1 1 Specialty Diagnoses / Procedures Referred By Contac t Referred To Contact General Surgery Diagnoses Right groin mass Procedures CONSULT TO GENERAL SURGERY OFFICE/OUTPATIENT [facility] 60 MINUTES Suzanne Velez APRN.DRAG DOWN [address] [place] [address] Referral ID Status Reason Start Date Expiration Date Visits Requested Visits Authorized [id number] Authorized PCP Requested Referral 12/23/2023 12/22/2024 1 1 Referral ID Status Reason Start Date Expiration Date V isits Requested Visits Authorized [id number] Closed Auto-Generate d Referral 12/25/2023 01/23/2024 1 1 Additional Source Comments Reason for Visit (unrecogniz ed section and content) Reason Comments Flank Pain s/sx started yesterd ay evening, complains bilateral flank pain, a subjective fever, and dark urine. Denies any event or injury that would have caused the back pain. Reason Comments Sinus Congestion c/o sore throat, sin us and chest congestion with prod cough x 2 days. vaxxed for covid Reason Onset Date Comments Refill Request 06/20/2021 Reason Comments Results Reason Onset Date Comments Refill Request 09/27/2021 Reason Comments New Pain Specialty Diagnoses / Procedures Referred By Contac t Referred To Contact Orthopedics Diagnoses Right elbow pain Procedures CONSULT TO ORTHOPAEDICS OFFICE/OUTPATIENT [facility] 60-74 MINUTES Rene Mina MD [address] [place] [address] Referral ID Status Reason Start Date Expiration Date V isits Requested Visits Authorized [id number] Closed PCP Requested Referral 08/20/2021 08/20/2022 1 1 Reason Onset Date Comments Refill Request 12/27/2021 Reason Onset Date Comments Refill Request 12/31/2021 Reason Onset Date Comments Recheck Immunizations 01/03/2022 Flu vaccination Reason Comments Recheck Follow up Reason Comments Patient Question Reason Onset Date Comments Refill Request 10/30/2022 Reason Comments Foot Trauma R ankle and foot swe lling and infection x1 week Specialty Diagnoses / Procedures Referred By Contac t Referred To Contact Radiology Diagnoses Pain Procedures XR ankle right 3+ views Myesha Garibay APRN-CNP Referral ID Status Reason Start Date Expiration Date Visits Requested Visits Authorized [id number] Authorized Perform Procedure 01/25/2024 1 1 Reason Onset Date Comments Refill Request 06/16/2023 Reason Comments Insurance Authorization Reason Comments Recheck Follow up zepbound Reason Comments Recheck 3 month follow up Reason Comments Recheck BP follow up Reason Comments possible hernia Reason Comments Consult Groin mass Specialty Diagnoses / Procedures Referred By Contac t Referred To Contact General Surgery Diagnoses Right groin mass Procedures CONSULT TO GENERAL SURGERY OFFICE/OUTPATIENT [facility] 60 MINUTES Suzanne Velez APRN.DRAG DOWN [address] [place] [address] Referral ID Status Reason Start Date Expiration Date V isits Requested Visits Authorized [id number] Closed PCP Requested Referral 12/23/2023 12/22/2024 1 [address] Specialty Diagnoses / Procedures Referred By Contac t Referred To Contact CT IMAGING Diagnoses Right groin mass Localized swelling, mass and lump, trunk Hydrocele, unspecified hydrocele type Procedures CT PELVIS WO IVCON CT PELVIS W/O CONTRAST MATERIAL Suzanne Velez APRN.DRAG DOWN [address] [place] [address] [place] [address] Referral ID Status Reason Start Date Expiration Date V isits Requested Visits Authorized [id number] Closed Auto-Generate d Referral 12/25/2023 01/23/2024 1 1 Reason Comments Follow Up Reason Onset Date Comments Refill Request 04/20/2024 Reason Comments Physical Annual Physical (unrecognized sect ion and content) No Status Records FoundNo Status Records FoundNo Status Records FoundNo Status Records FoundNo Status Records FoundNo Status Records FoundNo Status Records Found INFORMATION SOURCE (unrecogn ized section and content) DATE CREATED AUTHOR 03/10/2018 [facility] DATE CREATED AUTHOR AUTHOR'S ORGANIZ ATION 01/20/2020 [facility] DATE CREATED AUTHOR AUTHOR'S ORGANIZ ATION 02/02/2021 [facility] DATE CREATED AUTHOR AUTHOR'S ORGANIZ ATION 09/19/2021 [facility] DATE CREATED AUTHOR AUTHOR'S ORGANIZ ATION 12/07/2023 [facility] DATE CREATED AUTHOR AUTHOR'S ORGANIZ ATION 01/13/2024 [facility] DATE CREATED AUTHOR AUTHOR'S ORGANIZ ATION 11/13/2024 [facility] Care Teams (unrecognized sec tion and content) 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 Start Date End Date Rene Mina MD [address] [place] [address] PCP - General Internal Medicine 03/06/18 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 Start Date End Date Rene Mina MD [address] [place] [address] PCP - General Internal Medicine 05/14/15 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 Start Date End Date Rene Mina MD [address] [place], [place] [id number] PCP - General Internal Medicine 05/14/15 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 Start Date End Date Rene Mina MD [address] [place], [place] [id number] [phone] PCP - General Internal Medicine 05/14/15 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 Start Date End Date Rene Mina MD [address] [place] [address] PCP - General Internal Medicine 05/14/15 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 Start Date End Date Rene Mina MD [address] [place] [address] PCP - General Internal Medicine 05/14/15 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 Start Date End Date Rene Mina MD [address] [place] [address] PCP - General Internal Medicine 05/14/15 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 Start Date End Date Rene Mina MD [address] [place] [address] PCP - General Internal Medicine 05/14/15 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 Start Date End Date Rene Mina MD [address] [place] [address] PCP - General Internal Medicine 05/14/15 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 Start Date End Date Rene Mina MD [address] [place] [address] PCP - General Internal Medicine 05/14/15 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 Start Date End Date Rene Mina MD [address] [place] [address] PCP - General Internal Medicine 05/14/15 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 Start Date End Date Rene Mina MD [address] [place] [address] PCP - General Internal Medicine 05/14/15 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 Start Date End Date Rene Mina MD [address] [place] [address] PCP - General Internal Medicine 05/14/15 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 Start Date End Date Rene Mina MD [address] [place] [address] PCP - General Internal Medicine 05/14/15 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 Start Date End Date Generic Provider, No Assigned PcpMD [address] [place] [address] PCP - General Family Medicine 01/25/23 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 Start Date End Date Rene Mina MD [address] [place] [address] PCP - General Internal Medicine 05/14/15 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 Start Date End Date Rene Mina MD [address] [place] [address] PCP - General Internal Medicine 05/14/15 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 Start Date End Date Rene Mina MD [address] [place] [address] PCP - General Internal Medicine 05/14/15 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 Start Date End Date Rene Mina MD [address] [place] [address] PCP - General Internal Medicine 05/14/15 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 Start Date End Date Rene Mina MD [address] [place] [address] PCP - General Internal Medicine 05/14/15 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 Start Date End Date Rene Mina MD [address] [place] [address] PCP - General Internal Medicine 05/14/15 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 Start Date End Date Rene Mina MD [address] [place] [address] PCP - General Internal Medicine 05/14/15 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 Start Date End Date Rene Mina MD [address] [place] [address] PCP - General Internal Medicine 05/14/15 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 Start Date End Date Rene Mina MD [address] [place] [address] PCP - General Internal Medicine 05/14/15 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 Start Date End Date Rene Mina MD [address] [place] [address] PCP - General Internal Medicine 05/14/15 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 Start Date End Date Older, Suzanne, STAFFING MGR.DRAG DOWN [address] [facility] [place] [address] PCP - General Internal Medicine 12/31/23 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 Start Date End Date Older, Suzanne, STAFFING MGR.DRAG DOWN [address] [facility] [place] [address] PCP - General Internal Medicine 12/31/23 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 Start Date End Date Older, Suzanne, STAFFING MGR.DRAG DOWN [address] [facility] [place] [address] PCP - General Internal Medicine 12/31/23 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 Source Comments (unrecognize d section and content) In the event this informatio n is protected by the Federal Confidentiality of Alcohol and Drug Abuse Patient Records regulations: The Federal rules restrict any use of the information to criminally investigate or prosecute any alcohol or drug abuse patient.[facility] the event this information is protected by the Federal Confidentiality of Alcohol and Drug Abuse Patient Records regulations: The Federal rules restrict any use of the information to criminally investigate or prosecute any alcohol or drug abuse patient.[facility] the event this information is protected by the Federal Confidentiality of Alcohol and Drug Abuse Patient Records regulations: The Federal rules restrict any use of the information to criminally investigate or prosecute any alcohol or drug abuse patient.[facility] the event this information is protected by the Federal Confidentiality of Alcohol and Drug Abuse Patient Records regulations: The Federal rules restrict any use of the information to criminally investigate or prosecute any alcohol or drug abuse patient.[facility] the event this information is protected by the Federal Confidentiality of Alcohol and Drug Abuse Patient Records regulations: The Federal rules restrict any use of the information to criminally investigate or prosecute any alcohol or drug abuse patient.[facility] the event this information is protected by the Federal Confidentiality of Alcohol and Drug Abuse Patient Records regulations: The Federal rules restrict any use of the information to criminally investigate or prosecute any alcohol or drug abuse patient.[facility] the event this information is protected by the Federal Confidentiality of Alcohol and Drug Abuse Patient Records regulations: The Federal rules restrict any use of the information to criminally investigate or prosecute any alcohol or drug abuse patient.[facility] the event this information is protected by the Federal Confidentiality of Alcohol and Drug Abuse Patient Records regulations: The Federal rules restrict any use of the information to criminally investigate or prosecute any alcohol or drug abuse patient.[facility] the event this information is protected by the Federal Confidentiality of Alcohol and Drug Abuse Patient Records regulations: The Federal rules restrict any use of the information to criminally investigate or prosecute any alcohol or drug abuse patient.[facility] the event this information is protected by the Federal Confidentiality of Alcohol and Drug Abuse Patient Records regulations: The Federal rules restrict any use of the information to criminally investigate or prosecute any alcohol or drug abuse patient.[facility] the event this information is protected by the Federal Confidentiality of Alcohol and Drug Abuse Patient Records regulations: The Federal rules restrict any use of the information to criminally investigate or prosecute any alcohol or drug abuse patient.[facility] the event this information is protected by the Federal Confidentiality of Alcohol and Drug Abuse Patient Records regulations: The Federal rules restrict any use of the information to criminally investigate or prosecute any alcohol or drug abuse patient.[facility] the event this information is protected by the Federal Confidentiality of Alcohol and Drug Abuse Patient Records regulations: The Federal rules restrict any use of the information to criminally investigate or prosecute any alcohol or drug abuse patient.[facility] the event this information is protected by the Federal Confidentiality of Alcohol and Drug Abuse Patient Records regulations: The Federal rules restrict any use of the information to criminally investigate or prosecute any alcohol or drug abuse patient.[facility] the event this information is protected by the Federal Confidentiality of Alcohol and Drug Abuse Patient Records regulations: The Federal rules restrict any use of the information to criminally investigate or prosecute any alcohol or drug abuse patient.[facility] Center[facility] the event this information is protected by the Federal Confidentiality of Alcohol and Drug Abuse Patient Records regulations: The Federal rules restrict any use of the information to criminally investigate or prosecute any alcohol or drug abuse patient.[facility] CenterIn the event this information is protected by the Federal Confidentiality of Alcohol and Drug Abuse Patient Records regulations: The Federal rules restrict any use of the information to criminally investigate or prosecute any alcohol or drug abuse patient.[facility] CenterIn the event this information is protected by the Federal Confidentiality of Alcohol and Drug Abuse Patient Records regulations: The Federal rules restrict any use of the information to criminally investigate or prosecute any alcohol or drug abuse patient.[facility] CenterIn the event this information is protected by the Federal Confidentiality of Alcohol and Drug Abuse Patient Records regulations: The Federal rules restrict any use of the information to criminally investigate or prosecute any alcohol or drug abuse patient.[facility] CenterIn the event this information is protected by the Federal Confidentiality of Alcohol and Drug Abuse Patient Records regulations: The Federal rules restrict any use of the information to criminally investigate or prosecute any alcohol or drug abuse patient.[facility] CenterIn the event this information is protected by the Federal Confidentiality of Alcohol and Drug Abuse Patient Records regulations: The Federal rules restrict any use of the information to criminally investigate or prosecute any alcohol or drug abuse patient.[facility] CenterIn the event this information is protected by the Federal Confidentiality of Alcohol and Drug Abuse Patient Records regulations: The Federal rules restrict any use of the information to criminally investigate or prosecute any alcohol or drug abuse patient.[facility] CenterIn the event this information is protected by the Federal Confidentiality of Alcohol and Drug Abuse Patient Records regulations: The Federal rules restrict any use of the information to criminally investigate or prosecute any alcohol or drug abuse patient.[facility] CenterIn the event this information is protected by the Federal Confidentiality of Alcohol and Drug Abuse Patient Records regulations: The Federal rules restrict any use of the information to criminally investigate or prosecute any alcohol or drug abuse patient.[facility] CenterIn the event this information is protected by the Federal Confidentiality of Alcohol and Drug Abuse Patient Records regulations: The Federal rules restrict any use of the information to criminally investigate or prosecute any alcohol or drug abuse patient.[facility] CenterIn the event this information is protected by the Federal Confidentiality of Alcohol and Drug Abuse Patient Records regulations: The Federal rules restrict any use of the information to criminally investigate or prosecute any alcohol or drug abuse patient.[facility] CenterIn the event this information is protected by the Federal Confidentiality of Alcohol and Drug Abuse Patient Records regulations: The Federal rules restrict any use of the information to criminally investigate or prosecute any alcohol or drug abuse patient.[facility] CenterIn the event this information is protected by the Federal Confidentiality of Alcohol and Drug Abuse Patient Records regulations: The Federal rules restrict any use of the information to criminally investigate or prosecute any alcohol or drug abuse patient.[facility] CenterIn the event this information is protected by the Federal Confidentiality of Alcohol and Drug Abuse Patient Records regulations: The Federal rules restrict any use of the information to criminally investigate or prosecute any alcohol or drug abuse patient.[facility] CenterIn the event this information is protected by the Federal Confidentiality of Alcohol and Drug Abuse Patient Records regulations: The Federal rules restrict any use of the information to criminally investigate or prosecute any alcohol or drug abuse patient.[facility] CenterIn the event this information is protected by the Federal Confidentiality of Alcohol and Drug Abuse Patient Records regulations: The Federal rules restrict any use of the information to criminally investigate or prosecute any alcohol or drug abuse patient.[facility] CenterIn the event this information is protected by the Federal Confidentiality of Alcohol and Drug Abuse Patient Records regulations: The Federal rules restrict any use of the information to criminally investigate or prosecute any alcohol or drug abuse patient.[facility] CenterIn the event this information is protected by the Federal Confidentiality of Alcohol and Drug Abuse Patient Records regulations: The Federal rules restrict any use of the information to criminally investigate or prosecute any alcohol or drug abuse patient.[facility] CenterIn the event this information is protected by the Federal Confidentiality of Alcohol and Drug Abuse Patient Records regulations: The Federal rules restrict any use of the information to criminally investigate or prosecute any alcohol or drug abuse patient.[facility] CenterIn the event this information is protected by the Federal Confidentiality of Alcohol and Drug Abuse Patient Records regulations: The Federal rules restrict any use of the information to criminally investigate or prosecute any alcohol or drug abuse patient.[facility] CenterIn the event this information is protected by the Federal Confidentiality of Alcohol and Drug Abuse Patient Records regulations: The Federal rules restrict any use of the information to criminally investigate or prosecute any alcohol or drug abuse patient.[facility] FOR RECORDS PERTAINING TO PATIENTS WHO ARE OR HAVE BEEN ENROLLED IN A CHEMICAL DEPENDENCY/SUBSTANCEABUSE PROGRAM, SOME INFORMATION MAY BE OMITTED. This clinical summary was aggregated from multiple sources. Caution should be exercised in using it in the provision of clinical care. This summary normalizes information from multiple sources, and as a consequence, information in this document may materially change the coding, format and clinical context of patient data. In addition, data may be omitted in some cases. CLINICAL DECISIONS SHOULD BE BASED ON THE PRIMARY CLINICAL RECORDS. [facility]. provides no warranty or guarantee of the accuracy or completeness of information in this document.
--- NOTE | 2024-11-16 22:23 | RAD_ITS ---
PROCEDURE: RIGHT HAND MIN 3 VIEWS 11/16/2024 REASON FOR EXAM: INJURY TECHNIQUE: RIGHT HAND MIN 3 VIEWS COMPARISON: None. FINDINGS: No acute fracture or dislocation. Alignment is anatomic. Preserved joint spaces. Mild soft tissue swelling and laceration injuries to the 3rd and 4th digits. No radiopaque foreign body. RAD/Hand Min 3 Views IMPRESSION: No acute fracture or dislocation. No radiopaque foreign body. Reading Location: [id number]
[2024-11-16] MEDS: Lidocaine 1% (20 ml mdv) 20 ML Vial INFILT (23:16)
[2024-11-16 23:20] VITALS: BP 141/96; PULSE 61; RESP 17; TEMP 36.6; O2SAT 100
== END 2024-11-16 23:20 | disposition home or self-care (01) ==
PROVIDERS: Emergency Provider Emergency Medicine; PCP Internal Medicine; Visit Provider Emergency Medicine
DX: S61.314A Laceration without foreign body of right ring finger with damage to nail, initial encounter (principal); S61.212A Laceration without foreign body of right middle finger without damage to nail, initial encounter; W23.2XXA Caught, crushed, jammed or pinched between a moving and stationary object, initial encounter; I10 Essential (primary) hypertension; Z23 Encounter for immunization
CPT/HCPCS: 11740; 12002; 73130; 90715; 99283